=== PATIENT | male | born 2005 | race Two or more races ===

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

== ENCOUNTER 2024-05-05 10:15 | Emergency (ER) | payer OTHER, SELFPAY ==
[2024-05-05 10:20] VITALS: BP 126/64; PULSE 67; TEMP 36.3; O2SAT 100; BMI 22.0
--- OUTSIDE RECORDS SUMMARY | 2024-05-05 10:22 | XMS_ITS | CCD ---
Author Organization [facility] Care Team Providers Care Surgical Forceps Fabricator Name Role Phone Timi KOENIG Primary Care Physician [phone] FLORAEK, DR TIMI Mukherjee Primary Care Unavailable SALIMA, SREE Admitting Unavailable SALIMA, SREE Attending Unavailable SREE BORREGO Consulting Unavailable FLORAEK, DR TIMI Mukherjee Admitting Unavailable WNEK, DR TIMI Mukherjee Attending Unavailable WNEK, DR TIMI Mukherjee Primary Care Unavailable FLORAEK, DR TIMI Mukherjee Consulting Unavailable BOSTON, DR DANETTE Moffett Consulting Unavailable FLORAEK, DR TIMI Mukherjee Primary Care Unavailable ALEX, DR SONAL Mukherjee Admitting Unavailable ALEX, DR SONAL Mukherjee Attending Unavailable ALEX, DR SONAL Mukherjee Consulting Unavailable ANNALISA ASHTON Consulting Unavailable [facility], [place] Unavailable [phone] WNEK, Timi Mukherjee Attending Unavailable WNEK, Timi Mukherjee Attending Unavailable WNEK, Timi Mukherjee Attending Unavailable WNEK, Timi Mukherjee Attending Unavailable WNEK, Timi Mukherjee Attending Unavailable WNEK, Timi Mukherjee Attending Unavailable WNEK, Timi Mukherjee Attending Unavailable WNEK, Timi Mukherjee Attending Unavailable WNEK, Timi Mukherjee Attending Unavailable Allergies Allergy Classification Reported Allergen(s) Allergy Type Date of Onset Reaction(s) Facility (20 sources) cefTRIAXone; Translations: [ceftriaxone] Drug Allergy Weal (disorder) [facility] [place] (1 source) cefTRIAXone Drug Allergy 5 [facility] Repository Medications Current Medications Medication Drug Class(es) Dates Sig (Normalized) Sig (Original) amoxicillin 875 mg oral tablet (2 sources) Penicillin-class Antibacterial Start: 12-14-2022 End: 12-28-2022 take 1 tablet by mouth twice daily amoxicillin 875 mg Tab 875 mg = 1 tab(s), Oral, BID, X 14 day(s), # 28 tab(s), Refills(s) 0, Pharmacy: [facility]/pharmacy #[id number], 168, cm, 12/14/22 10:01:00 EDT, Height/Length Dosing, 59.4, kg, 12/14/22 10:01:00 EDT, Weight Dosing Start Date: 12/14/22 Stop Date: 12/28/22 Status: Ordered Start: 07-28-2021 End: 08-11-2021 take 1 tablet by mouth twice daily amoxicillin 875 mg Tab 875 mg = 1 tab(s), Oral, BID, X 14 day(s), # 28 tab(s), Refills(s) 0, Pharmacy: [facility] 1155, 168, cm, 07/28/21 13:55:00 EDT, Height/Length Dosing, 60.7, kg, 07/28/21 13:55:00 EDT, Weight Dosing Start Date: 07/28/21 Stop Date: 08/11/21 Status: Ordered amoxicillin 875 mg / clavulanate 125 mg oral tablet (3 sources) Penicillin-class Antibacterial Start: 04-21-2023 End: 05-01-2023 Augmentin 875 mg-125 mg Tab 1 tab(s), Oral, BID for 10 day(s), 20 tab(s), Refill(s) 0, [facility]/pharmacy #[id number], 166, cm, 04/21/23 14:23:00 EST, Height/Length Dosing, 59.6, kg, 04/21/23 14:23:00 EST, Weight Dosing Start Date: 04/21/23 Stop Date: 05/01/23 Status: Ordered Start: 02-08-2023 End: 02-18-2023 take 1 tablet by mouth every twelve hours Augmentin 875 mg oral tablet = 1 tab(s), Oral, q12hr, X 10 day(s), # 20 tab(s), Refills(s) 0, Pharmacy: [facility]/pharmacy #[id number], 169, cm, 02/08/23 10:29:00 EDT, Height/Length [...] for 30 day(s), 30 cap(s), Refill(s) 0, [facility]/pharmacy #[id number], 169.5, cm, 08/10/21 8:45:00 EDT, Height/Length [...] (20 sources) Central Nervous System Stimulant Start: 05-01-2024 End: 05-31-2024 take 1 capsule by mouth once daily in the morning amphetamine-dextroamphetamine 30 mg ER Cap 30 mg = 1 cap(s), Oral, qAM, X 30 day(s), # 30 cap(s), Refills(s) 0, Pharmacy: [facility]/pharmacy #[id number], 169, cm, 05/01/24 14:06:00 EST, Height/Length Dosing, 63, kg, 05/01/24 14:06:00 EST, Weight Dosing Start Date: 05/01/24 Stop Date: 05/31/24 Status: Ordered Start: 01-17-2024 End: 02-16-2024 take 1 capsule by mouth once daily in the morning amphetamine-dextroamphetamine 30 mg ER C ap 30 mg = 1 cap(s), Oral, qAM, X 30 day(s), # 30 cap(s), Refills(s) 0, Pharmacy: [facility]/pharmacy #[id number], 169, cm, 01/17/24 15:32:00 EDT, Height/Length Dosing, 62.7, kg, 01/17/24 15:32:00 EDT, Weight Dosing Start Date: 01/17/24 Stop Date: 02/16/24 Status: Ordered Start: 09-13-2023 take 1 capsule by mo [facility] once daily in the morning amphetamine-dextroamphetamine 30 mg ER C ap 30 mg = 1 cap(s), Oral, qAM, # 30 cap(s), Refills(s) 0, Pharmacy: [facility]/pharmacy #[id number], 169, cm, 09/13/23 16:08:00 EDT, Height/Length Dosing, 59.2, kg, 09/13/23 16:08:00 EDT, Weight Dosing Start Date: 09/13/23 Status: Ordered Start: 05-31-2023 End: 06-30-2023 take 1 capsule by mouth once daily in the morning amphetamine-dextroamphetamine 30 mg ER C ap 30 mg = 1 cap(s), Oral, qAM, X 30 day(s), # 30 cap(s), Refills(s) 0, Pharmacy: [facility]/pharmacy #[id number], 166, cm, 05/31/23 9:38:00 EST, Height/Length Dosing, 61.2, kg, 05/31/23 9:38:00 EST, Weight Dosing Start Date: 05/31/23 Stop Date: 06/30/23 Status: Ordered Start: 04-04-2023 End: 05-04-2023 take 1 capsule by mouth once daily in the morning amphetamine-dextroamphetamine 30 mg ER C ap 30 mg = 1 cap(s), Oral, qAM, X 30 day(s), # 30 cap(s), Refills(s) 0, Pharmacy: [facility]/pharmacy #[id number], 169, cm, 03/22/23 8:58:00 EST, Height/Length Dosing, 62.4, kg, 03/22/23 8:58:00 EST, Weight Dosing Start Date: 04/04/23 Stop Date: 05/04/23 Status: Ordered Start: 03-01-2023 take 1 capsule by mo ut once daily in the morning amphetamine-dextroamphetamine 30 mg ER C ap 30 mg = 1 cap(s), Oral, qAM, # 30 cap(s), Refills(s) 0, Pharmacy: [facility]/pharmacy #[id number], 169, cm, 03/01/23 14:02:00 EST, Height/Length Dosing, 61, kg, 03/01/23 14:02:00 EST, Weight Dosing Start Date: 03/01/23 Status: Ordered Start: 02-01-2023 take 1 capsule by [facility] once daily in the morning amphetamine-dextroamphetamine 30 mg ER C ap 30 mg = 1 cap(s), Oral, qAM, # 30 cap(s), Refills(s) 0, Pharmacy: [facility]/pharmacy #[id number], 168, cm, 02/01/23 10:47:00 EDT, Height/Length Dosing, 59.4, kg, 02/01/23 10:47:00 EDT, Weight Dosing Start Date: 02/01/23 Status: Ordered Start: 01-07-2023 take 1 capsule by [facility] once daily in the morning amphetamine-dextroamphetamine 30 mg ER C ap 30 mg = 1 cap(s), Oral, qAM, # 30 cap(s), Refills(s) 0, Pharmacy: [facility]/pharmacy #[id number], 169.8, cm, 01/04/23 10:08:00 EDT, Height/Length Dosing, 59.9, kg, 01/04/23 10:08:00 EDT, Weight Dosing Start Date: 01/07/23 Status: Ordered Start: 11-29-2022 take 1 capsule by [facility] once daily in the morning amphetamine-dextroamphetamine 30 mg ER C ap 30 mg = 1 cap(s), Oral, qAM, # 30 cap(s), Refills(s) 0, Pharmacy: [facility]/pharmacy #[id number], 167, cm, 11/29/22 13:18:00 EDT, Height/Length Dosing, 57.3, kg, 11/29/22 13:18:00 EDT, Weight Dosing Start Date: 11/29/22 Status: Ordered Start: 09-01-2022 take 1 capsule by [facility] once daily in the morning amphetamine-dextroamphetamine 30 mg ER C ap 30 mg = 1 cap(s), Oral, qAM, # 30 cap(s), Refills(s) 0, Pharmacy: [facility]/pharmacy #[id number], 168.2, cm, 09/01/22 13:17:00 EDT, Height/Length Dosing, 60.6, kg, 09/01/22 13:17:00 EDT, Weight Dosing Start Date: 09/01/22 Status: Ordered Start: 07-27-2022 take 1 capsule by mo alh once daily in the morning amphetamine-dextroamphetamine 30 mg ER C ap 30 mg = 1 cap(s), Oral, qAM, # 30 cap(s), Refills(s) 0, Pharmacy: [facility]/pharmacy #[id number], 166, cm, 07/27/22 13:17:00 EDT, Height/Length Dosing, 60.2, kg, 07/27/22 13:17:00 EDT, Weight Dosing Start Date: 07/27/22 Status: Ordered Start: 06-29-2022 amphetamine-de xtroamphetamine 15 mg oral capsule, extended release 30 mg, 2 cap(s), Oral, qAM, 60 cap(s), Refill(s) 0, [facility]/pharmacy #[id number], 167.5, cm, 06/29/22 10:52:00 EDT, Height/Length Dosing, 61.2, kg, 06/29/22 10:52:00 EDT, Weight Dosing Start Date: 06/29/22 Status: Ordered Start: 06-14-2022 amphetamine-de xtroamphetamine 15 mg oral capsule, extended release 30 mg, 2 cap(s), Oral, qAM, 60 cap(s), Refill(s) 0, [facility] #[id number], 167.8, cm, 05/18/22 13:08:00 EST, Height/Length Dosing, 62.6, kg, 05/18/22 13:08:00 EST, Weight Dosing Start Date: 06/14/22 Status: Ordered Start: 05-02-2022 End: 06-30-2022 take 1 capsule by mouth once daily in the morning amphetamine-dextroamphetamine 30 mg ER C ap 30 mg = 1 cap(s), Oral, qAM, X 30 day(s), # 30 cap(s), Refills(s) 0, Pharmacy: [facility]/pharmacy #[id number], 167.8, cm, 05/18/22 13:08:00 EST, Height/Length Dosing, 62.6, kg, 05/18/22 13:08:00 EST, Weight Dosing Start Date: 05/31/22 Stop Date: 06/30/22 Status: Ordered Start: 03-31-2022 End: 04-30-2022 take 1 capsule by mouth once daily in the morning amphetamine-dextroamphetamine 30 mg ER C ap 30 mg = 1 cap(s), Oral, qAM, X 30 day(s), # 30 cap(s), Refills(s) 0, Pharmacy: [facility]/pharmacy #[id number], 165.5, cm, 03/23/22 9:07:00 EST, Height/Length Dosing, 62.9, kg, 03/23/22 9:06:00 EST, Weight Dosing Start Date: 03/31/22 Stop Date: 04/30/22 Status: Ordered Start: 01-04-2022 End: 03-02-2022 take 1 capsule by mouth once daily in the morning amphetamine-dextroamphetamine 30 mg oral capsule, extended release 30 mg, 1 cap(s), Oral, qAM for 30 day(s), 30 cap(s), Refill(s) 0, [facility]/pharmacy #[id number], 169, cm, 01/19/22 13:16:00 EDT, Height/Length Dosing, 62.5, kg, 01/19/22 13:16:00 EDT, Weight Dosing Start Date: 01/31/22 Stop Date: 03/02/22 Status: Ordered Start: 10-11-2021 End: 11-10-2021 take 1 capsule by mouth once daily in the morning amphetamine-dextroamphetamine 30 mg oral capsule, extended release 30 mg, 1 cap(s), Oral, qAM for 30 day(s), 30 cap(s), Refill(s) 0, [facility]/pharmacy #[id number], 165, cm, 09/01/21 14:22:00 EDT, Height/Length Dosing, 61.7, kg, 09/01/21 14:22:00 EDT, Weight Dosing Start Date: 10/11/21 Stop Date: 11/10/21 Status: Ordered azithromycin 250 mg oral tablet (2 sources) Macrolide Antimicrobial Start: 02-01-2023 End: 02-06-2023 azithromycin 250 mg Tab = 1 packet(s), Oral, As Directed, as directed on package labeling, X 5 day(s), # 6 tab(s), Refills(s) 0, Pharmacy: [facility] #[id number], 168, cm, 02/01/23 10:47:00 EDT, Height/Length Dosing, 59.4, kg, 02/01/23 10:47:00 EDT, Weight Dosing Start Date: 02/01/23 Stop Date: 02/06/23 Status: Ordered Start: 12-21-2022 End: 12-26-2022 azithromycin 250 mg Tab = 1 packet(s), Oral, As Directed, as directed on package labeling, X 5 day(s), # 6 tab(s), Refills(s) 0, Pharmacy: [facility] #[id number], 170, cm, 12/21/22 15:13:00 EDT, Height/Length Dosing, 58, kg, 12/21/22 15:13:00 EDT, Weight Dosing Start Date: 12/21/22 Stop Date: 12/26/22 Status: Ordered cetirizine hydrochloride 10 mg oral tablet (20 sources) Histamine-1 Receptor Antagonist Start: 08-01-2023 take 1 tablet by mouth once daily cetirizine 10 mg Tab 10 mg = 1 tab(s), Oral, Daily, # 30 tab(s), Refills(s) 2, Pharmacy: [facility] #[id number], 166, cm, 05/31/23 9:38:00 EST, Height/Length Dosing, 61.2, kg, 05/31/23 9:38:00 EST, Weight Dosing Start Date: 08/01/23 Status: Ordered Start: 02-12-2020 Zyrtec Oral, D SWETHA [email or web address] Allergy symptoms, Refills(s) 0 Start Date: 02/12/20 Status: Ordered Start: 02-12-2020 Zyrtec Daily, Refills(s) 0 Start Date: 02/12/20 Status: Ordered ciprofloxacin 500 mg oral tablet (2 sources) Quinolone Antimicrobial Start: 06-22-2022 End: 07-02-2022 take 1 tablet by mouth twice daily Cipro 500 mg Tab 500 mg = 1 tab(s), Oral, BID, X 10 day(s), # 20 tab(s), Refills(s) 0, Pharmacy: [facility]/pharmacy #[id number], 167.5, cm, 06/22/22 10:49:00 EST, Height/Length Dosing, 60.1, kg, 06/22/22 10:49:00 EST, Weight Dosing Start Date: 06/22/22 Stop Date: 07/02/22 Status: Ordered dicyclomine hydrochloride 10 mg oral capsule (18 sources) Anticholinergic Start: 03-01-2023 take 1 capsule by mouth four times daily dicyclomine 10 mg Cap 10 mg = 1 cap(s), Oral, QID, # 60 cap(s), Refills(s) 1, Pharmacy: [facility]/pharmacy #[id number], 169, cm, 03/01/23 14:02:00 EST, Height/Length Dosing, 61, kg, 03/01/23 14:02:00 EST, Weight Dosing Start Date: 03/01/23 Status: Ordered Start: 11-29-2022 take 1 capsule by mo [facility] four times daily dicyclomine 10 mg Cap 10 mg = 1 cap(s), Oral, QID, # 60 cap(s), Refills(s) 1, Pharmacy: [facility]/pharmacy #[id number], 167, cm, 11/29/22 13:18:00 EDT, Height/Length Dosing, 57.3, kg, 11/29/22 13:18:00 EDT, Weight Dosing Start Date: 11/29/22 Status: Ordered Start: 05-18-2022 take 2 capsules by m out four times daily as needed Bentyl 10 mg Cap 20 mg = 2 cap(s), Oral, QID, PRN Dyspepsia, # 60 cap(s), Refills(s) 0, Pharmacy: [facility]/pharmacy #[id number], 167.8, cm, 05/18/22 13:08:00 EST, Height/Length Dosing, 62.6, kg, 05/18/22 13:08:00 EST, Weight Dosing Start Date: 05/18/22 Status: Ordered docusate sodium 100 mg oral capsule (20 sources) Start: 06-15-2022 take 1 capsule by mouth twice daily as needed for constipation Colace 100 mg Cap 100 mg = 1 cap(s), Oral, BID, PRN for constipation, # 20 cap(s), Refills(s) 0, Pharmacy: [facility]/pharmacy #[id number], 167.5, cm, 06/15/22 13:04:00 EST, Height/Length Dosing, 61.4, kg, 06/15/22 13:04:00 EST, Weight Dosing Start Date: 06/15/22 Status: Ordered fluticasone propionate 0.05 mg/actuat metered dose nasal spray (20 sources) Corticosteroid Start: 02-06-2023 fluticasone Nasal 0.05 mg/inh [place] 2 spray(s), Nasal, Daily, 16 gram, Refill(s) 2, each nostril, [facility]/pharmacy #[id number], 168, cm, 02/01/23 10:47:00 EDT, Height/Length Dosing, 59.4, kg, 02/01/23 10:47:00 EDT, Weight Dosing Start Date: 02/06/23 Status: Ordered Start: 11-09-2022 fluticasone Na miguelina 0.05 mg/inh [place] 2 spray(s), Nasal, Daily, 16 gram, Refill(s) 2, each nostril, [facility]/pharmacy #[id number], 168.2, cm, 09/01/22 13:17:00 EDT, Height/Length Dosing, 60.6, kg, 09/01/22 13:17:00 EDT, Weight Dosing Start Date: 11/09/22 Status: Ordered Start: 07-27-2022 fluticasone Na miguelina 0.05 mg/inh [place] 2 spray(s), Nasal, Daily, 16 gram, Refill(s) 0, each nostril, [facility]/pharmacy #[id number], 166, cm, 07/27/22 13:17:00 EDT, Height/Length Dosing, 60.2, kg, 07/27/22 13:17:00 EDT, Weight Dosing Start Date: 07/27/22 Status: Ordered Start: 06-29-2022 fluticasone Na miguelina 0.05 mg/inh [place] 2 spray(s), Nasal, Daily, 16 gram, Refill(s) 0, each nostril, [facility]/pharmacy #[id number], 167.5, cm, 06/29/22 10:52:00 EDT, Height/Length Dosing, 61.2, kg, 06/29/22 10:52:00 EDT, Weight Dosing Start Date: 06/29/22 Status: Ordered Start: 01-19-2022 fluticasone To p 0.05% Crm 15 gram 1 eleuterio, Topical, BID, 15 gram, Refill(s) 0, [facility]/pharmacy #[id number], 169, cm, 01/19/22 13:16:00 EDT, Height/Length Dosing, 62.5, kg, 01/19/22 13:16:00 EDT, Weight Dosing Start Date: 01/19/22 Status: Ordered Inulin / Lactobacillus rhamn osus GG (6 sources) Start: 07-05-2022 End: 08-04-2022 Gene SolutionsBancha oral capsule 1 cap(s), Oral, Daily for 30 day(s), 30 cap(s), Refill(s) 0, [facility]/pharmacy #[id number], 167.5, cm, 06/29/22 10:52:00 EDT, Height/Length Dosing, 61.2, kg, 06/29/22 10:52:00 EDT, Weight Dosing Start Date: 07/05/22 Stop Date: 08/04/22 Status: Ordered Start: 04-20-2022 End: 05-20-2022 [employer]ancha oral capsule 1 cap(s), Oral, Daily for 30 day(s), 30 cap(s), Refill(s) 0, [facility]/pharmacy #[id number], 17.1, cm, 04/20/22 9:29:00 EST, Height/Length Dosing, 63, kg, 04/20/22 9:29:00 EST, Weight Dosing Start Date: 04/20/22 Stop Date: 05/20/22 Status: Ordered methocarbamol 750 mg oral tablet (3 sources) Muscle Relaxant Start: 09-13-2023 methocarbamol 750 mg Tab Refills(s) 0 Start Date: 09/13/23 Status: Ordered methylPREDNISolone 4 mg tab dosepak (1 source) Start: 09-13-2023 take 1 tablet by mouth once methylPREDNISolone 4 mg tab dosepak = 1 packet(s), Oral, Once, as directed on package labeling, X 6 day(s), # 21 tab(s), Refills(s) 0 Start Date: 09/13/23 Status: Ordered MiraLax 3350 Oral Pwdr for Recon 249 gram (20 sources) Start: 08-10-2021 take 17 g by mouth once daily MiraLax 3350 Oral Pwdr for Recon 249 gram 17 gm, Oral, Daily, # 527 gm, Refills(s) 0, Pharmacy: [facility]/pharmacy #[id number], 169.5, cm, 08/10/21 8:45:00 EDT, Height/Length Dosing, 61.9, kg, 08/10/21 8:45:00 EDT, Weight Dosing Start Date: 08/10/21 Status: Ordered naproxen sodium 550 mg oral tablet (15 sources) Nonsteroidal Anti-inflammator y Drug Start: 09-13-2023 naproxen sodium 550 mg Tab Refills(s) 0 Start Date: 09/13/23 Status: Ordered Start: 02-07-2022 take 1 tablet by gilmer th twice daily as needed for pain naproxen 250 mg oral tablet 250 mg = 1 tab(s), Oral, BID, PRN as needed for pain, # 60 tab(s), Refills(s) 0, Pharmacy: [facility]/pharmacy #[id number], 165.5, cm, 02/02/22 14:50:00 EDT, Height/Length Dosing, 61.8, kg, 02/02/22 14:50:00 EDT, Weight Dosing Start Date: 02/07/22 Status: Ordered Start: 01-05-2022 take 1 tablet by gilmer th twice daily as needed for pain naproxen 250 mg oral tablet 250 mg = 1 tab(s), Oral, BID, PRN as needed for pain, # 60 tab(s), Refills(s) 0, Pharmacy: [facility]/pharmacy #[id number], 166, cm, 01/05/22 11:41:00 EDT, Height/Length Dosing, 61.4, kg, 01/05/22 11:41:00 EDT, Weight Dosing Start Date: 01/05/22 Status: Ordered omeprazole 20 mg Cap-DR (8 sources) Start: 02-10-2021 take 1 capsule by mouth once daily omeprazole 20 mg Cap-DR 20 mg = 1 cap(s), Oral, Daily, # 30 cap(s), Refills(s) 0, Pharmacy: [facility] 1155, 167.3, cm, 02/10/21 8:54:00 EDT, Height/Length Dosing, 56.7, kg, 02/10/21 8:54:00 EDT, Weight Dosing Start Date: 02/10/21 Status: Ordered ondansetron 4 mg disintegrating oral tablet (20 sources) Serotonin-3 Receptor Antagonist Start: 11-29-2022 take 1 tablet by mouth every eight hours ondansetron 4 mg Dis Tab 4 mg = 1 tab(s), Oral, q8hr, # 16 tab(s), Refills(s) 0, Pharmacy: [facility]/pharmacy #[id number], 167, cm, 11/29/22 13:18:00 EDT, Height/Length Dosing, 57.3, kg, 11/29/22 13:18:00 EDT, Weight Dosing Start Date: 11/29/22 Status: Ordered Start: 04-20-2022 take 1 tablet by gilmer th every eight hours ondansetron 4 mg Dis Tab 4 mg = 1 tab(s), Oral, q8hr, # 16 tab(s), Refills(s) 0, Pharmacy: [facility]/pharmacy #[id number], 17.1, cm, 04/20/22 9:29:00 EST, Height/Length Dosing, 63, kg, 04/20/22 9:29:00 EST, Weight Dosing Start Date: 04/20/22 Status: Ordered Start: 02-18-2022 End: 02-23-2022 take 1 tablet by mouth every eight hours ondansetron 4 mg Dis Tab 4 mg = 1 tab(s), Oral, q8hr, X 5 day(s), # 15 tab(s), Refills(s) 0, Pharmacy: [facility]/pharmacy #[id number], 167, cm, 02/18/22 13:05:00 EDT, Height/Length Dosing, 62.3, kg, 02/18/22 13:05:00 EDT, Weight Dosing Start Date: 02/18/22 Stop Date: 02/23/22 Status: Ordered Start: 01-05-2022 End: 02-04-2022 take 1 tablet by mouth every eight hours as needed for nausea ondansetron 4 mg Tab 4 mg = 1 tab(s), Oral, q8hr, PRN Nausea/Vomiting, X 30 day(s), # 10 tab(s), Refills(s) 0, Pharmacy: [facility]/pharmacy #[id number], 166, cm, 01/05/22 11:41:00 EDT, Height/Length Dosing, 61.4, kg, 01/05/22 11:41:00 EDT, Weight Dosing Start Date: 01/05/22 Stop Date: 02/04/22 Status: Ordered Start: 06-02-2021 take 1 tablet by gilmer th every eight hours ondansetron 4 mg Dis Tab 4 mg = 1 tab(s), Oral, q8hr, # 6 tab(s), Refills(s) 0, Pharmacy: [facility] 1155, 167, cm, 06/02/21 10:13:00 EST, Height/Length Dosing, 60.7, kg, 06/02/21 10:13:00 EST, Weight Dosing Start Date: 06/02/21 Status: Ordered polyethylene glycol 3350 14319 mg powder for oral solution (5 sources) Osmotic Laxative Start: 08-10-2021 take 17 g by mouth once daily MiraLax 3350 Oral Pwdr for Recon 249 gram 17 gm, Oral, Daily, # 527 gm, Refills(s) 0, Pharmacy: [facility]/pharmacy #[id number], 169.5, cm, 08/10/21 8:45:00 EDT, Height/Length Dosing, 61.9, kg, 08/10/21 8:45:00 EDT, Weight Dosing Start Date: 08/10/21 Status: Ordered polyethylene glycol 3350 051400 mg / potassium chloride 1480 mg / sodium bicarbonate 5720 mg / sodium chloride 97903 mg powder for oral solution (2 sources) Osmotic Laxative Start: 06-22-2022 NuLYTELY Romano oral powder for reconstitution See Instructions, 1 EA, Refill(s) 0, See physician instructions prior to procedure., [facility]/pharmacy #[id number], 167.5, cm, 06/22/22 10:49:00 EST, Height/Length Dosing, 60.1, kg, 06/22/22 10:49:00 EST, Weight Dosing Start Date: 06/22/22 Status: Ordered predniSONE 50 mg oral tablet (1 source) Start: 04-21-2023 End: 04-26-2023 take 1 tablet by mouth once daily predniSONE 50 mg Tab 50 mg = 1 tab(s), Oral, Daily, X 5 day(s), # 5 tab(s), Refills(s) 0, Pharmacy: [facility]/pharmacy #[id number], 166, cm, 04/21/23 14:23:00 EST, Height/Length Dosing, 59.6, kg, 04/21/23 14:23:00 EST, Weight Dosing Start Date: 04/21/23 Stop Date: 04/26/23 Status: Ordered promethazine hydrochloride 12.5 mg oral tablet (20 sources) Phenothiazine Start: 09-01-2021 take 1 tablet by mouth every six hours promethazine 12.5 mg oral tablet 12.5 mg = 1 tab(s), Oral, q6hr, # 16 tab(s), Refills(s) 1, [id number], 165, cm, 09/01/21 14:22:00 EDT, Height/Length Dosing, 61.7, kg, 09/01/21 14:22:00 EDT, Weight Dosing Start Date: 09/01/21 Status: Ordered Start: 08-18-2021 take 1 tablet by gilmer th every six hours promethazine 12.5 mg oral tablet 12.5 mg = 1 tab(s), Oral, q6hr, # 16 tab(s), Refills(s) 0, [id number], 167.5, cm, 08/18/21 15:28:00 EDT, Height/Length [...] bedtime), # 30 tab(s), Refills(s) 0, Pharmacy: [id number], 165, cm, 02/17/21 15:59:00 EDT, Height/Length [...] Refills(s) 0 Start Date: 01/05/22 Status: Ordered omeprazole 20 mg delayed release oral capsule (20 sources) Proton Pump Inhibitor Start: 07-27-2022 take 1 capsule by mouth once daily omeprazole 20 mg Cap-DR 30 EA, TAKE 1 CAPSULE BY MOUTH EVERY DAY, Refills(s) 0 Start Date: 07/27/22 Status: Ordered Start: 04-20-2022 take 1 capsule by [facility] once daily omeprazole 20 mg Cap-DR 20 mg = 1 cap(s), Oral, Daily, # 30 cap(s), Refills(s) 0, Pharmacy: [facility]/pharmacy #[id number], 17.1, cm, 04/20/22 9:29:00 EST, Height/Length Dosing, 63, kg, 04/20/22 9:29:00 EST, Weight Dosing Start Date: 04/20/22 Status: Ordered Start: 02-10-2021 take 1 capsule by [facility] once daily omeprazole 20 mg Cap-DR 20 mg = 1 cap(s), Oral, Daily, # 30 cap(s), Refills(s) 0, Pharmacy: [place] [id number], 167.3, cm, 02/10/21 8:54:00 EDT, Height/Length Dosing, 56.7, kg, 02/10/21 8:54:00 EDT, Weight Dosing Start Date: 02/10/21 Status: Ordered pantoprazole (6 sources) Proton Pump Inhibitor Start: 11-21-2022 Problems [...] and depressed mood] 12-30-2020 Chronic Administrative/social admission (6 sources) Counseling procedure with explicit context; Translations: [...] elsewhere] Onset: 2 Episodic Digestive congenital anomalies (20 sources) 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] unspecified] Onset: 2 05-07-2020 Episodic Noninfectious gastroenteritis (15 sources) Noninfectious enteritis; Translations: [Noninfective gastroenteritis and colitis, unspecified] Onset: 2 Episodic Nonspecific chest pain (17 sources) Chest pain; Translations: [Chest pain, unspecified] [...] injuries and conditions due to external causes (16 sources) Injury of hand 08-29-2022 Episodic Other lower respiratory disease (12 sources) Hemoptysis; Translations: [Hemoptysis] Onset: 3 Episodic Other nervous system disorders (1 source) Chronic pain; Translations: [Other chronic pain] Onset: 3 Chronic Otitis media and related conditions (7 sources) Purulent otitis media; Translations: [Suppurative otitis media, unspecified, left ear] Onset: 4 Episodic Residual codes; unclassified (6 sources) Difficulty sleeping 05-07-2020 Episodic Residual codes; unclassified (20 sources) Insomnia 12-30-2020 Episodic Residual codes; unclassified (2 sources) Child weight centiles - finding; Translations: [Body mass index (BMI) pediatric, 5th percentile to less than 85th percentile for age] Onset: 3 Episodic Residual codes; unclassified (1 source) Body mass index 20-24 - normal; Translations: [Body mass index (BMI) 21.0-21.9, adult] Onset: 5 Episodic Syncope (20 sources) Syncope 01-20-2021 Episodic Unclassified (14 sources) Patient encounter status 11-29-2022 Unclassified (1 source) Body mass index 20-24 - normal 04-30-2024 Viral infection (20 sources) Infectious mononucleosis; Translations: [...] pharyngitis; Translations: [Acute pharyngitis] Onset: 07-28-2021 Unclassified (19 sources) Finding of sensation of abdomen 07-27-2022 Results Test Name Value Interpretation Reference Range Facility Pediatrics Office/Clinic Not homa 01-20-2024 Pediatrics Office/Clinic Note Pediatrics Office/Clinic Note Chief Complaint Patient in office for ADHD med recheck. Per patient he is doing well on meds needs refill. History of Present Illness Pieter Brennan is a 18-year-old male who presents for follow-up of ADHD. He reports feeling well and adhering to his medication regimen. This medication has effectively improved his focus and attention. He is currently working and plans to attend college next semester. He graduated. He denies experiencing headaches, abdominal pain, excessive fatigue, drowsiness, appetite suppression, or trouble falling asleep while on the medication. His height is unchanged since the last visit. He needs medication refill. He reports that during his last medication refill, [facility] did not have a the medication for a 1 week, so he obtain medication injection. He is on Adderall, XR 30 mg. He has 1 or 2 pills remaining.The patient prefers to fill the prescription at [facility], he will talk with them before making any changes. Review of Systems PHQ Score Initial Depression Screen Score: 0 SCORE CONSTITUTIONAL: Negative for growth problems, fatigue, unexplained fevers, and weight loss. NEUROLOGICAL: Negative for abnormal tone, developmental delays, syncope, headaches, and seizures. Physical Exam Vitals & Measurements T: 37.0 ?C(Temporal Artery) HR: 78(Peripheral) RR: 14 BP: 110/82 HT: 67 in HT: 169 cm WT: 62.7 kg WT: 137.94 lb BMI: 21.95 GENERAL: The patient is well developed, well nourished, in no apparent distress. NEUROLOGIC:Normalfor age; Cranial nerves:II through XII grossly intact; PSYCHIATRIC: Normal mood and behavior. Vital Signs Height is 5 feet 7 inches. Weight is 138 pounds and 4 ounces, 25th percentile. BMI is 41st percentile. Assessment/Plan 1. ADHD (attention deficit hyperactivity disorder) (F90.2: Attention-deficit hyperactivity disorder, combined type) Refilled Adderall XR 30 mg, to be taken once daily in the morning, was provided. Informed to contact the office if there are any issues with medication availability. Advised to notify 1 week before running low on medication to ensure availability. 2. Dietary counseling (Z71.3: Dietary counseling and surveillance) 3. Exercise counseling (Z71.82: Exercise counseling) 4. BMI (body mass index), pediatric, 5% to less than 85% for age (Z68.52: Body mass index [BMI] pediatric, 5th percentile to less than 85th percentile for age) Follow-up in 3 months. Portions of this record may have been created with voice recognition artificial intelligence software, specifically [employer], [employer] and or [employer]. Substitutions may have occurred due to the inherent limitations of voice recognition and artificial intelligence software. ATTESTATION: Documentation services were performed after patient or guardian consented to allow [employer] to record this visit. MAEGAN environmental protection specialist and provider reviewed before signing. MAEGAN: Otis Sayed. Total time spent preparing the chart, conducting of the encounter with the patient and family and time spent documenting, reviewing and ordering tests was 15 minutes Follow-up With When Contact Information LIBERTY SMITH, Timi Mukherjee, PED In 1 month [address] [facility] [place] [address]- Additional Instructions: recheck ADHD Problem List/Past Medical History Ongoing Acute adjustment disorder with anxiety Acute adjustment disorder with mixed anxiety and depressed mood ADHD (attention deficit hyperactivity disorder) Bipolar disorder, current episode mixed, moderate Chest pain Chronic abdominal pain Dietary counseling Dysuria Exercise counseling GERD (gastroesophageal reflux disease) Insomnia Intrinsic asthma [...] - Esophagogastroduodenoscopy (07/13/2022), Circumcision (2004), Myringotomy. Medications amphetamine-dextroamphetamin e 30 mg ER Cap, 30 mg= 1 cap(s), Oral, qAM cetirizine 10 mg Tab, 10 mg= 1 tab(s), Oral, Daily, 2 refills Colace 100 mg Cap, 100 mg= 1 cap(s), Oral, BID, PRN dicyclomine 10 mg Cap, 10 mg= 1 cap(s), Oral, QID, 1 refills fluticasone Nasal 0.05 mg/inh [place], 2 spray(s), Nasal, Daily, 2 refills methocarbamol 750 mg Tab MiraLax 3350 Oral Pwdr for Recon 249 gram, 17 gm, Oral, Daily naproxen sodium 550 mg Tab omeprazole 20 mg Cap-DR ondansetron 4 mg Dis Tab, 4 (more content not included)... Normal [facility] Ambulatory Visit Summaryon 1 Ambulatory Visit Summary Ambulatory Visit Summary PIETER BRENNAN :2005 Visit Date:01/17/2024 Ambulatory Visit Instructions Your Diagnosis ADHD (attention deficit hyperactivity disorder) Dietary counseling Exercise counseling BMI (body mass index), pediatric, 5% to less than 85% for age Your Care Team Attending Physician - Timi KOENIG MD Primary Care Physician - Timi KOENIG MD This Is Your Medications List amphetamine-dextroamphetamin e (amphetamine-dextroamphetami ne 30 mg ER Cap) Contact prescribing physician if questions or concerns cetirizine (Zyrtec) cetirizine (cetirizine 10 mg Tab) dicyclomine (dicyclomine 10 mg Cap) docusate (Colace 100 mg Cap) fluticasone nasal (fluticasone Nasal 0.05 mg/inh [place]) methocarbamol (methocarbamol 750 mg Tab) naproxen (naproxen sodium 550 mg Tab) omeprazole (omeprazole 20 mg Cap-DR) ondansetron (ondansetron 4 mg Dis Tab) pantoprazole polyethylene glycol 3350 (MiraLax 3350 Oral Pwdr for Recon 249 gram) promethazine (promethazine 12.5 mg oral tablet) Procedures Performed Colonoscopy (07/13/2022), EGD - Esophagogastroduodenoscopy (07/13/2022), Circumcision (2004), Myringotomy. Discharge Vitals Temperature (Temporal Artery) 37.0 ?C Heart Rate (Peripheral) 78 Respiratory Rate 14 Blood Pressure 110/82 Height 169 cm Height 67 in Weight 62.7 kg Weight 137.94 lb BMI 21.95 What to do next Scheduled Follow-Up Appointments Monday 4:20 PM EST With: Timi KOENIG MD Where: [facility] [place] [address] [place] [address]- You Need to Schedule the Following Appointments Follow Up with LIBERTY SMITH, Timi Mukherjee, PED When: In 1 month Comments: recheck ADHD Where: [address] [place] [address] [place] [address]- Medications What How Much When Why Instructions Unchanged amphetamine-dextroamphetamin e (amphetamine-dextroamphetami ne 30 mg ER Cap) 1 Capsules By Mouth Once a day (in the morning) Duration: 30 Days Pickup at [facility]/pharmacy #[id number] Unchanged cetirizine (cetirizine 10 mg Tab) 1 Tablets By Mouth Every day Contact prescribing physician if questions or concerns Unchanged cetirizine (Zyrtec) By Mouth Every day as needed for Allergy symptoms Contact prescribing physician if questions or concerns Unchanged dicyclomine (dicyclomine 10 mg Cap) 1 Capsules By Mouth 4 times a day Contact prescribing physician if questions or concerns Unchanged docusate (Colace 100 mg Cap) 1 Capsules By Mouth 2 times a day as needed for for constipation Abdominal pain Constipation Contact prescribing physician if questions or concerns Unchanged fluticasone nasal (fluticasone Nasal 0.05 mg/ inh [place]) 2 Sprays Nasal Inhalation Every day each nostril Contact prescribing physician if questions or concerns Unchanged methocarbamol (methocarbamol 750 mg Tab) Contact prescribing physician if questions or concerns Unchanged naproxen (naproxen sodium 550 mg Tab) Contact prescribing physician if questions or concerns Unchanged omeprazole (omeprazole 20 mg Cap-DR) 30 EA, TAKE 1 CAPSULE BY MOUTH EVERY DAY Contact prescribing physician if questions or concerns Unchanged ondansetron (ondansetron 4 mg Dis Tab) 1 Tablets By Mouth Every 8 hours Contact prescribing physician if questions or concerns Unchanged pantoprazole 40 Unknown, Oral, 0 Refill(s) Contact prescribing physician if questions or concerns Unchanged polyethylene glycol 3350 (MiraLax 3350 Oral Pwdr for Recon 249 gram) 17 Gram By Mouth Every day Slow transit constipation Contact prescribing physician if questions or concerns Unchanged promethazine (promethazine 12.5 mg oral tablet) 1 Tablets By Mouth Every 6 hours Vomiting Abdominal pain Contact prescribing physician if questions or concerns Pharmacy Information [facility]/pharmacy #[id number]: [address] [place], [place] [phone] Allergies Rocephin (Hives) Problems Ongoing - Any problem that you are currently receiving treatment for. Acute adjustment disorder with anxiety Acute adjustment disorder with mixed anxiety and depressed mood ADHD (attention deficit hyperactivity disorder) Bipolar disorder, current episode mixed, moderate Chest pain Chronic abdominal pain Dietary counseling Dysuria Exercise counseling GERD (gastroesophageal reflux disease) Insomnia Intrinsic asthma Migraines 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 Slow transit constipation Small intestinal bacterial overgrowth (SIBO) Suppurative otitis media of left ear without rupture of ear drum Syncope Viral illness Historical - Any problem that you are no longer receiving treatment for. Abdominal cramping Abdominal pain Abdominal pain, lower Acute costochondritis Acute gastroenteritis Costochondritis Hemoptysis Infectious mononucleosis Infectious mononucleosis Injury of hand including fingers Insect bites Nausea & vomiting Nausea an (more content not included)... Normal [facility] Ambulatory Visit Summary Ambulatory Visit Summary PIETER BRENNAN Mohit :2005 Visit Date:01/17/2024 Ambulatory Visit Instructions Your Diagnosis ADHD (attention deficit hyperactivity disorder) Dietary counseling Exercise counseling BMI (body mass index), pediatric, 5% to less than 85% for age Your Care Team Attending Physician - Timi KOENIG MD Primary Care Physician - Timi KOENIG MD This Is Your Medications List amphetamine-dextroamphetamin e (amphetamine-dextroamphetami ne 30 mg ER Cap) Contact prescribing physician if questions or concerns cetirizine (Zyrtec) cetirizine (cetirizine 10 mg Tab) dicyclomine (dicyclomine 10 mg Cap) docusate (Colace 100 mg Cap) fluticasone nasal (fluticasone Nasal 0.05 mg/inh [place]) methocarbamol (methocarbamol 750 mg Tab) naproxen (naproxen sodium 550 mg Tab) omeprazole (omeprazole 20 mg Cap-DR) ondansetron (ondansetron 4 mg Dis Tab) pantoprazole polyethylene glycol 3350 (MiraLax 3350 Oral Pwdr for Recon 249 gram) promethazine (promethazine 12.5 mg oral tablet) Procedures Performed Colonoscopy (07/13/2022), EGD - Esophagogastroduodenoscopy (07/13/2022), Circumcision (2004), Myringotomy. Discharge Vitals Temperature (Temporal Artery) 37.0 ?C Heart Rate (Peripheral) 78 Respiratory Rate 14 Blood Pressure 110/82 Height 169 cm Height 67 in Weight 62.7 kg Weight 137.94 lb BMI 21.95 What to do next Scheduled Follow-Up Appointments Monday 4:20 PM EST With: Timi KOENIG MD Where: [facility] [place] [address] [place] [address]- You Need to Schedule the Following Appointments Follow Up with Timi KOENIG MD, PED When: In 1 month Comments: recheck ADHD Where: [address] [place] [address] [place] [address]- Medications What How Much When Why Instructions Unchanged amphetamine-dextroamphetamin e (amphetamine-dextroamphetami ne 30 mg ER Cap) 1 Capsules By Mouth Once a day (in the morning) Duration: 30 Days Pickup at [facility]/pharmacy #[id number] Unchanged cetirizine (cetirizine 10 mg Tab) 1 Tablets By Mouth Every day Contact prescribing physician if questions or concerns Unchanged cetirizine (Zyrtec) By Mouth Every day as needed for Allergy symptoms Contact prescribing physician if questions or concerns Unchanged dicyclomine (dicyclomine 10 mg Cap) 1 Capsules By Mouth 4 times a day Contact prescribing physician if questions or concerns Unchanged docusate (Colace 100 mg Cap) 1 Capsules By Mouth 2 times a day as needed for for constipation Abdominal pain Constipation Contact prescribing physician if questions or concerns Unchanged fluticasone nasal (fluticasone Nasal 0.05 mg/ inh [place]) 2 Sprays Nasal Inhalation Every day each nostril Contact prescribing physician if questions or concerns Unchanged methocarbamol (methocarbamol 750 mg Tab) Contact prescribing physician if questions or concerns Unchanged naproxen (naproxen sodium 550 mg Tab) Contact prescribing physician if questions or concerns Unchanged omeprazole (omeprazole 20 mg Cap-DR) 30 EA, TAKE 1 CAPSULE BY MOUTH EVERY DAY Contact prescribing physician if questions or concerns Unchanged ondansetron (ondansetron 4 mg Dis Tab) 1 Tablets By Mouth Every 8 hours Contact prescribing physician if questions or concerns Unchanged pantoprazole 40 Unknown, Oral, 0 Refill(s) Contact prescribing physician if questions or concerns Unchanged polyethylene glycol 3350 (MiraLax 3350 Oral Pwdr for Recon 249 gram) 17 Gram By Mouth Every day Slow transit constipation Contact prescribing physician if questions or concerns Unchanged promethazine (promethazine 12.5 mg oral tablet) 1 Tablets By Mouth Every 6 hours Vomiting Abdominal pain Contact prescribing physician if questions or concerns Pharmacy Information [facility]/pharmacy #[id number]: [address] [place], [place] [phone] Allergies Rocephin (Hives) Problems Ongoing - Any problem that you are currently receiving treatment for. Acute adjustment disorder with anxiety Acute adjustment disorder with mixed anxiety and depressed mood ADHD (attention deficit hyperactivity disorder) Bipolar disorder, current episode mixed, moderate Chest pain Chronic abdominal pain Dietary counseling Dysuria Exercise counseling GERD (gastroesophageal reflux disease) Insomnia Intrinsic asthma Migraines 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 Slow transit constipation Small intestinal bacterial overgrowth (SIBO) Suppurative otitis media of left ear without rupture of ear drum Syncope Viral illness Historical - Any problem that you are no longer receiving treatment for. Abdominal cramping Abdominal pain Abdominal pain, lower Acute costochondritis Acute gastroenteritis Costochondritis Hemoptysis Infectious mononucleosis Infectious mononucleosis Injury of hand including fingers Insect bites Nausea & vomiting Nausea an (more content not included)... Normal [facility] ED Note-Physicianon 09-15-19 ED Note-Physician [id number] [facility] RAD - CT Reporton 09-15-2023 RAD - CT Report [id number] [facility] RAD - CT Report [id number] [facility] RAD - CT Report [id number] [facility] Pediatrics Office/Clinic Not homa 09-14-2023 Pediatrics Office/Clinic Note Chief Complaint Patient in office for adhd med check History of Present Illness Pieter Brennan is an 17-year-old male who presents today for a follow-up on ADHD. The patient's ADHD is well-managed with Adderall, with a satisfactory focus and attention. His academic performance post-graduation was reported to be A's and B's. He denies experiencing headaches, abdominal pain, excessive fatigue, drowsiness, or sleep disturbances. His appetite remains satisfactory. He is currently on a regimen of Adderall 30 mg, taken once daily in the morning, and needs a refill. He sustained a hip dislocation during a basketball game. He was attempting to retrieve a rebound, but threw it behind him, which was a hill. He landed on his front leg, causing it to slide out. The hip was manually reduced in the emergency room at [facility]. He was administered a morphine injection, a steroid immune booster, and a muscle relaxer. Review of Systems PHQ Score Initial Depression Screen Score: 0 SCORE ROS - Provider CONSTITUTIONAL: Negative for growth problems, fatigue, unexplained fevers, and weight loss. NEUROLOGICAL: Negative for abnormal tone, developmental delays, syncope, headaches, and seizures. PSYCHIATRIC: Negative for behavioral or emotional problems. Physical Exam Vitals & Measurements T: 36.5 ?C(Temporal Artery) HR: 68(Peripheral) RR: 24 BP: 128/72 HT: 67 in HT: 169 cm WT: 59.2 kg WT: 130.24 lb BMI: 20.73 GENERAL: The patient is well developed, well nourished, in no apparent distress. NEUROLOGIC:Normalfor age; Cranial nerves:II through XII grossly intact; PSYCHIATRIC: Normal mood and behavior. Assessment/Plan 1. ADHD (attention deficit hyperactivity disorder) (F90.2: Attention-deficit hyperactivity disorder, combined type) The patient is advised to continue with the current regimen of Adderall 30 mg once daily in the morning. A prescription refill for Adderall has been provided. 2. Dietary counseling (Z71.3: Dietary counseling and surveillance) 3. Exercise counseling (Z71.82: Exercise counseling) Hip dislocation. The patient's condition is currently being managed by the emergency room at [facility]. Health maintenance. I advised the patient that typically; after graduating from high school, they will transition to a family doctor. However, we will continue to provide care until he is able to establish with another physician. We recommend that there are [facility] physicians who are currently accepting new patients. The patient will let us know and we will ensure that his medical records are transferred accordingly. Follow-up The patient is scheduled for a follow-up visit in 3 months. ATTESTATION: Portions of this record may have been created with voice recognition artificial intelligence software, specifically [employer], [employer] and or [employer]. Substitutions may have occurred due to the inherent limitations of voice recognition and artificial intelligence software. Documentation services were performed after patient or guardian consented to allow [employer] to record this visit. MAEGAN environmental protection specialist and provider reviewed before signing. MAEGAN: Summer Herrera Total time spent preparing the chart, conducting of the encounter with the patient and family and time spent documenting, reviewing and ordering tests was 15 minutes Follow-up With When Contact Information LIBERTY SMITH, DALIA Phillips In 3 months [address] [facility] [place] [id number]- Additional Instructions: recheck ADHD Problem List/Past Medical History Ongoing Acute adjustment disorder with anxiety Acute adjustment disorder with mixed anxiety and depressed mood ADHD (attention deficit hyperactivity disorder) Bipolar disorder, current episode mixed, moderate Chest pain Chronic abdominal pain Dietary counseling Dysuria Exercise counseling GERD (gastroesophageal reflux disease) Insomnia Intrinsic asthma [...] - Esophagogastroduodenoscopy (07/13/2022), Circumcision (2004), Myringotomy. Medications amphetamine-dextroamphetamin e 30 mg ER Cap, 30 mg= 1 cap(s), Oral, qAM cetirizine 10 mg Tab, 10 mg= 1 tab(s), Oral, Daily, 2 refills Colace 100 mg Cap, 100 mg= 1 cap(s), Oral, BID, PRN dicyclomine 10 mg Cap, 10 mg= 1 cap(s), Oral, QID (more content not included)... Normal [facility] Ambulatory Visit Summaryon 0 09-13-2023 Ambulatory Visit Summary PIETER BRENNAN :2005 Visit Date:09/13/2023 Ambulatory Visit Instructions Your Diagnosis ADHD (attention deficit hyperactivity disorder) Dietary counseling Exercise counseling Your Care Team Attending Physician - Timi KOENIG MD Primary Care Physician - Timi KOENIG MD This Is Your Medications List amphetamine-dextroamphetamin e (amphetamine-dextroamphetami ne 30 mg ER Cap) Contact prescribing physician if questions or concerns cetirizine (Zyrtec) cetirizine (cetirizine 10 mg Tab) dicyclomine (dicyclomine 10 mg Cap) docusate (Colace 100 mg Cap) docusate (docusate sodium 100 mg Cap) fluticasone nasal (fluticasone Nasal 0.05 mg/inh [place]) methocarbamol (methocarbamol 750 mg Tab) methylPREDNISolone (methylPREDNISolone 4 mg tab dosepak) naproxen (naproxen sodium 550 mg Tab) omeprazole (omeprazole 20 mg Cap-DR) ondansetron (ondansetron 4 mg Dis Tab) pantoprazole polyethylene glycol 3350 (MiraLax 3350 Oral Pwdr for Recon 249 gram) promethazine (promethazine 12.5 mg oral tablet) Procedures Performed Colonoscopy (07/13/2022), EGD - Esophagogastroduodenoscopy (07/13/2022), Circumcision (2004), Myringotomy. Discharge Vitals Temperature (Temporal Artery) 36.5 ?C Heart Rate (Peripheral) 68 Respiratory Rate 24 Blood Pressure 128/72 Height 169 cm Height 67 in Weight 59.2 kg Weight 130.24 lb BMI 20.73 What to do next You Need to Schedule the Following Appointments Follow Up with Timi KOENIG MD, PED When: In 3 months Comments: recheck ADHD Where: [address] [address] [place] [address]- Medications What How Much When Why Instructions Changed amphetamine-dextroamphetamin e (amphetamine-dextroamphetami ne 30 mg ER Cap) 1 Capsules By Mouth Once a day (in the morning) Pickup at [facility]/pharmacy #[id number] Unchanged cetirizine (cetirizine 10 mg Tab) 1 Tablets By Mouth Every day Contact prescribing physician if questions or concerns Unchanged cetirizine (Zyrtec) By Mouth Every day as needed for Allergy symptoms Contact prescribing physician if questions or concerns Unchanged dicyclomine (dicyclomine 10 mg Cap) 1 Capsules By Mouth 4 times a day Contact prescribing physician if questions or concerns Unchanged docusate (Colace 100 mg Cap) 1 Capsules By Mouth 2 times a day as needed for for constipation Abdominal pain Constipation Contact prescribing physician if questions or concerns Unchanged docusate (docusate sodium 100 mg Cap) 20 EA, TAKE 1 CAPSULE BY MOUTH TWICE A DAY NEEDED FOR CONSTIPATION Contact prescribing physician if questions or concerns Unchanged fluticasone nasal (fluticasone Nasal 0.05 mg/ inh [place]) 2 Sprays Nasal Inhalation Every day each nostril Contact prescribing physician if questions or concerns Unchanged methocarbamol (methocarbamol 750 mg Tab) Contact prescribing physician if questions or concerns Unchanged methylPREDNISolone (methylPREDNISolone 4 mg tab dosepak) 1 Packets By Mouth Once Duration: 6 Days as directed on package labeling Contact prescribing physician if questions or concerns Unchanged naproxen (naproxen sodium 550 mg Tab) Contact prescribing physician if questions or concerns Unchanged omeprazole (omeprazole 20 mg Cap-DR) 30 EA, TAKE 1 CAPSULE BY MOUTH EVERY DAY Contact prescribing physician if questions or concerns Unchanged ondansetron (ondansetron 4 mg Dis Tab) 1 Tablets By Mouth Every 8 hours Contact prescribing physician if questions or concerns Unchanged pantoprazole 40 Unknown, Oral, 0 Refill(s) Contact prescribing physician if questions or concerns Unchanged polyethylene glycol 3350 (MiraLax 3350 Oral Pwdr for Recon 249 gram) 17 Gram By Mouth Every day Slow transit constipation Contact prescribing physician if questions or concerns Unchanged promethazine (promethazine 12.5 mg oral tablet) 1 Tablets By Mouth Every 6 hours Vomiting Abdominal pain Contact prescribing physician if questions or concerns Pharmacy Information [facility]/pharmacy #[id number]: [address], [place] [id number] [phone] Allergies Rocephin (Hives) Problems Ongoing - Any problem that you are currently receiving treatment for. Acute adjustment disorder with anxiety Acute adjustment disorder with mixed anxiety and depressed mood ADHD (attention deficit hyperactivity disorder) Bipolar disorder, current episode mixed, moderate Chest pain Chronic abdominal pain Dietary counseling Dysuria Exercise counseling GERD (gastroesophageal reflux disease) Insomnia Intrinsic asthma Migraines 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 Slow transit constipation Small intestinal bacterial overgrowth (SIBO) Suppurative otitis media of left ear without rupture of ear drum Syncope Viral illness Historical - Any problem that you are no longer receiving treatment for. Abdominal cramping Abdominal pain Abdominal pain, lower Acute costochondritis Acute gastroenteritis Costochondritis H (more content not included)... Normal [facility] ECG 12-Leadon 08-01-2023 ECG 12-Lead [id number] Normal [facility] ED Note-Physicianon 08-01-19 ED Note-Physician [id number] Normal [facility] RAD - CT Reporton 08-01-2023 RAD - CT Report [id number] Normal [facility] Pediatrics Office/Clinic Not homa 06-04-2023 Pediatrics Office/Clinic [...] with voice recognition artificial intelligence software, specifically [employer], [employer] and or [employer]. Substitutions may have occurred due to the inherent limitations of voice recognition and artificial intelligence software. Documentation services were performed after patient or guardian consented to allow [employer] to record this visit. MAEGAN environmental protection specialist and provider reviewed before signing. MAEGAN: Sophia Candones/Pasted by: Annetta Zeng. Total time spent preparing the chart, conducting of the encounter with the patient and family and time spent documenting, reviewing and ordering tests was 15 minutes Follow-up With When Contact Information LIBERTY SMITH, Timi Mukherjee, PED In [address] [place] [address]. [address] [place] [id number]- Additional Instructions: recheck ADHD Problem List/Past Medical [...] - Esophagogastroduodenoscopy (07/13/2022), Circumcision (2004), Myringotomy. Medications amphetamine-dextroamphetamin e 30 mg ER Cap, 30 mg= 1 cap(s), Oral, qAM Colace 100 mg Cap, 100 mg= 1 cap(s), Oral, BID, PRN dicyclomine 10 mg Cap, 10 mg= 1 cap(s), Oral, QID, 1 refills docusate sodium 100 mg Cap fluticasone Nasal 0.05 mg/inh [place], 2 spray(s), Nasal, Daily, 2 refills MiraLax [...] 07/19/2019 Student, Previous employment/school: 8th grade at [employer] 06/04/2019 Home/Environment Lives with Mother, Siblings. Living situation: Home/Independent., 07/19/2019 Sexual Sexually active: No., 06/04/19 (more content not included)... Normal [facility] Ambulatory Visit Summaryon 0 05-31-2023 Ambulatory Visit Summary PIETER BRENNAN :2005 Visit Date:05/31/2023 Ambulatory Visit Instructions Your Diagnosis Attention-deficit hyperactivity disorder, combined type Dysuria Your Care Team Attending Physician - Timi KOENIG MD Primary Care Physician - Timi KOENIG MD This Is Your Medications List amphetamine-dextroamphetamin e (amphetamine-dextroamphetami ne 30 mg ER Cap) Contact prescribing physician if questions or concerns cetirizine (Zyrtec) dicyclomine (dicyclomine 10 mg Cap) docusate (Colace 100 mg Cap) docusate (docusate sodium 100 mg Cap) fluticasone nasal (fluticasone Nasal 0.05 mg/inh [place]) omeprazole (omeprazole 20 mg Cap-DR) ondansetron (ondansetron [...] Appointments Monday. 2023 9:50 AM EDT With: LIBERTY SMITH, Timi Mukherjee [facility] 05-31-2023 Provider Letter (Inserted Image. Fabiana ble to display) May 31, 2023 PIETER BRENNAN [address] [place] [address] : 2005 To Whom It May Concern, Please excuse above student from school. Date of Absence: 05/29/23-05/31/23 May Return to School On: _ 06/01/23 Appointment Time In: _ Time Left Office: _ Restrictions: _ Comments: _ Sincerely, [facility] [address], [place] [address] [facility] Deric [facility]01[facility]20[facility] PIET[facility] BRENNAN ([id number]) [birth year] M Date Time Provider Department 08/01/22 CLARY BAKER During your visit today, we recorded the following information about you: Awilda Stratton MA 08/01/2022 9:48 AM Signed Spoke to: Mother Confirmed appointment on: 08/02/[address] Baker To bring records: [] Yes [x] No To Fax records to: [] Yes [x] No Confirmed phone number: [phone] Location: [facility] is located in the [facility]. [address] [place] [address] Instructions: Check in is located on the 1st floor. Please check in 15 minutes before your appointment. Please use The Appointment Pass Kiosks to electronically check in for your appointment. Attendants are available to assist. After check in please report to 2nd Floor. If for any reason a reschedule or cancellation is needed please call [phone]). Allergies As of Date: 08/01/2022 (Not on File) Date Reviewed: Never Reviewed Reason for Visit: Appointment [186] Problem List As Of Date: 08/01/2022 (None) Encounter Status:Closed by AWILDA STRATTON on 08/01/22 Normal [facility] CHEMISTRYOrdered By: SYSTEM SYSTEM on 07-27-2022 [...] 61 mg/dL Normal 55 - 199 mg/dL [facility] Remisol Potassium [Moles/Vol] 4.1 mmol/L Normal 3.5 - 5.3 mmol/L [facility] Protein [Mass/Vol] 7.2 g/dL Normal 6.0 - 7.8 gm/dL [facility] Sodium [Moles/Vol] 137 mmol/L Normal 135 - 145 mmol/L [facility] Urea nitrogen [Mass/Vol] 6 mg/dL Normal 5 - 21 mg/dL [facility] Rem[facility] Urea nitrogen/Creatinine [Mass ratio] 6 mg/mg Low 10 - 20 [facility] HEMATOLOGYOrdered By: SYSTEM SYSTEM on 07-27-2022 Basophils/100 WBC (Bld) 1.2 % Normal 0.0 - 2.0 % [facility] HemeAutoSS Basophils/Leukocyte s Auto (Bld) [Pure # fraction] 0.1 E9/L Normal 0.0 - 0.1 E9/L [facility] HemeAutoSS Eosinophils/100 WBC (Bld) 1.3 % Normal 0.0 - 8.0 % [facility] HemeAutoSS Eosinophils/Leukocy chanel Auto (Bld) [Pure # fraction] 0.1 E9/L Normal 0.0 - 0.7 E9/L [facility] HemeAutoSS Lymphocytes/100 WBC (Bld) 46.0 % Normal 14.0 - 55.0 % [facility] HemeAutoSS Lymphocytes/Leukocy chanel Auto (Bld) [Pure # fraction] 2.2 E9/L Normal 1.0 - 3.5 E9/L [facility] HemeAutoSS Monocytes/100 WBC (Bld) 8.6 % Normal 4.0 - 14.0 % [facility] HemeAutoSS Monocytes/Leukocyte s Auto (Bld) [Pure # fraction] 0.4 E9/L Normal 0.0 - 1.0 E9/L [facility] HemeAutoSS Neutrophils/100 WBC (Bld) 42.9 % Normal 36.0 - 75.0 % [facility] HemeAutoSS Neutrophils/Leukocy chanel Auto (Bld) [Pure # fraction] 2.0 E9/L [...] 88.2 fL Normal 78.0 - 95.0 fL [facility] HemeAutoSS Platelet mean volume (Bld) [Entitic vol] 8.3 fL Normal 6.0 - 9.5 fL [facility] HemeAutoSS Platelets (Bld) [#/Vol] 234.0 E9/L Normal 150.0 - 450.0 E9/L [facility] HemeAutoSS RBC (Bld) [#/Vol] 5.1 E12/L Normal 4.2 - 5.6 E12/L [facility] HemeAutoSS WBC corrected for nucl RBC Auto (Bld) [#/Vol] 4.7 E9/L Normal 4.0 - 10.5 E9/L [facility] HemeAutoSS XR KUB 1 VIEWon 06-18-2022 XR [...] MEAD Date: 2022-06-18 12:13 Normal [facility] AMYLASEon 06-16-2022 Amylase [Catalytic activity/Vol] 73 U/L Normal 25-115 [facility] Comment on above: Performed By: #### A MY, CRP #### [facility] [address] [place] [address] [address] Purnima Ward CRPon 06-16-2022 CRP [Mass/Vol] mg/L Normal <=1.0 [facility] Comment on above: Performed By: #### A MY, CRP #### [facility] [address] [place] [address] Dr. Purnima Ward TSH W/ REFLEX TO FT4on 06-16 TSH 1.232 uIU/mL Normal 0.516-4.130 [facility] Comment on above: Performed By: #### T [id number] #### [facility] [address] [place] [address] Dr. Purnima Ward [facility]15 SARS-CoV-2 (COVID-19) RNA CONRADO+probe Ql (Unsp spec) Detected Critically abnormal NOT DETECTED [facility] Comment on above: Result Comment: This test is not yet approved or cleared by the [place] FDA. When there are no FDA-approved or cleared tests available, and other criteria are met, FDA can make tests available under an emergency access mechanism called an Emergency Use Authorization (EUA). The EUA for this test is supported by the Liquor Blender of Health and Human Service's declaration that [...] Performed By: #### C VDTBH #### [facility] [address] [place], [place] [address] Dr. Purnima Ward GROUP A STREP CULTUREon 10-15 S. pyogenes Ag Ql (Unsp spec) Culture Observations: NEGATIVE FOR GROUP A STREPTOCOCCUS. Normal [facility] Comment on above: Performed By: #### G RASTCX, SSCRN #### [facility] [address] [place] [address] [address] Purnima Ward STREPT SCREENon 10-27-2021 STREP SCREEN A Negative Normal NEGATIVE [facility] Comment on above: Performed By: #### G RASTCX, SSCRN #### [facility] [address] [place] [address] [address] Purnima Ward XR CHEST 1 Von [...] by: ANNALISA ASHTON Date: 2021-10-27 06:05 Normal [facility] Progress Noteon 02-12-2021 Embedded Developer Authentication Interface Message Text History of Presenting [...] Current Outpatient Medications Medication Sig Dispense Refill amphetamine-dextroamphetamin e (ADDERALL XR) 30 MG capsule Take by [...] and his mother regarding the prognosis and termite exterminator management of this e (more content not included)... Normal [facility] Vital Signs Date Time Vital Sign Value Performing Clinician Facility 05-01-2024 14:00-0500 Body temperature 97.52 [degF] Timi KOENIG [facility] [place] 05-01-2024 14:00-0500 bodymassindex -0.23 kg/m2 Timi WNEK [facility] [place] Comment on above: Result Comment: ^~:!ZScore [facility] 05-01-2024 14:00-0500 Diastolic blood pressure 72 mm[Hg] Timi WNEK [facility] [place] 05-01-2024 14:00-0500 Heart rate 68 /min Timi WNEK [facility] [place] 05-01-2024 14:00-0500 Height/Length Percentile 14.02 1 Timi WNEK [facility] [place] Comment on above: Result Comment: ^~:!Percentile Source [facility] 05-01-2024 14:00-0500 Height/Length Z-Score -1.08 1 Timi WNEK [facility] [place] Comment on above: Result Comment: ^~:!ZScore [facility] 05-01-2024 14:00-0500 Respiratory rate 20 /min Timi WNEK [facility] [place] 05-01-2024 14:00-0500 Systolic blood pressure 110 mm[Hg] Timi WNEK [facility] [place] 05-01-2024 14:00-0500 weight -0.68 1 Timi WNEK [facility] [place] Comment on above: Result Comment: ^~:!ZScore [facility] 05-01-2024 14:00-0500 Weight Percentile 24.79 % Timi WNEK [facility] [place] Comment on above: Result Comment: ^~:!Percentile Source - [place] 01-17-2024 15:25-0400 Blood Pressure Location Timi WNEK [facility] [place] 01-17-2024 15:25-0400 Body temperature 98.6 [degF] Timi WNEK [facility] [place] 01-17-2024 15:25-0400 bodymassindex -0.22 kg/m2 Timi WNEK [facility] [place] Comment on above: Result Comment: ^~:!ZScore [facility] 01-17-2024 15:25-0400 Diastolic blood pressure 82 mm[Hg] Timi WNEK [facility] [place] 01-17-2024 15:25-0400 Heart rate 78 /min Timi WNEK [facility] 01-17-2024 15:25-0400 Height/Length Percentile 14.23 1 Timi WNEK [facility] Comment on above: Result Comment: ^~:!Percentile Source [facility] 01-17-2024 15:25-0400 Height/Length Z-Score -1.07 1 Timi HINESEK [facility] [place] Comment on above: Result Comment: ^~:!ZScore [facility] 01-17-2024 15:25-0400 Respiratory rate 14 /min Timi HINESEK [facility] 01-17-2024 15:25-0400 Systolic blood pressure 110 mm[Hg] Timi WNEK [facility] [place] 01-17-2024 15:25-0400 Weight Percentile 24.97 % Timi WNEK [facility] [place] Comment on above: Result Comment: ^~:!Percentile Source -[place] 01-17-2024 15:25-0400 Weight Z-Score -0.68 1 Timi WNEK [facility] [place] Comment on above: Result Comment: ^~:!ZScore [facility] 09-13-2023 16:03-0400 Body temperature 97.7 [degF] Timi HINESEK [facility] 09-13-2023 16:03-0400 bodymassindex -0.63 kg/m2 Timi WNEK [facility] [place] Comment on above: Result Comment: ^~:!ZScore [facility] 09-13-2023 16:03-0400 Diastolic blood pressure 72 mm[Hg] Timi WNEK [facility] 09-13-2023 16:03-0400 Heart rate 68 /min Timi WNEK [facility] 09-13-2023 16:03-0400 Height/Length Percentile 14.59 1 Timi WNEK [facility] Comment on above: Result Comment: ^~:!Percentile Source [facility] 09-13-2023 16:03-0400 Height/Length Z-Score -1.05 1 Timi WNEK [facility] Comment on above: Result Comment: ^~:!ZScore [facility] 09-13-2023 16:03-0400 Respiratory rate 24 /min Timi WNEK [facility] [place] 09-13-2023 16:03-0400 Systolic blood pressure 128 mm[Hg] Timi WNEK [facility] [place] 09-13-2023 16:03-0400 Weight Percentile 15.25 % Timi WNEK [facility] [place] Comment on above: Result Comment: ^~:!Percentile Source -[facility] [place] 09-13-2023 16:03-0400 Weight Z-Score -1.03 1 Timi WNEK [facility] [place] Comment on above: Result Comment: ^~:!ZScore [facility] 05-31-2023 09:35-0500 Body temperature 98.42 [degF] Timi FLORAEK [facility] [place] 05-31-2023 09:35-0500 bodymassindex 0 kg/m2 Timi WNEK [facility] [place] Comment on above: Result Comment: ^~:!ZScore [facility] 05-31-2023 09:35-0500 Diastolic blood pressure 68 mm[Hg] Timi HINESEK [facility] [place] 05-31-2023 09:35-0500 Heart rate 60 /min Timi WNEK [facility] [place] 05-31-2023 09:35-0500 Height/Length Percentile 7.38 1 Timi WNEK [facility] [place] Comment on above: Result Comment: ^~:!Percentile Source -[facility] [place] 05-31-2023 09:35-0500 Height/Length Z-Score -1.45 1 Timi HINESEK [facility] [place] Comment on above: Result Comment: ^~:!ZScore [facility] 05-31-2023 09:35-0500 Respiratory rate 16 /min Timi WNEK [facility] [place] 05-31-2023 09:35-0500 Systolic blood pressure 102 mm[Hg] Timi HINESEK [facility] [place] 05-31-2023 09:35-0500 Weight Percentile 23.46 % Timi WNEK [facility] [place] Comment on above: Result Comment: ^~:!Percentile Source -[facility] [place] 05-31-2023 09:35-0500 Weight Z-Score -0.72 1 Timi KOENIG [facility] [place] Comment on above: [facility] 13:56-0500 Blood Pressure Location Christopher Fermin [facility] [place] 04-26-2023 13:56-0500 Body temperature 97.52 [degF] Christopher Zavalafield [facility] [place] 04-26-2023 13:56-0500 bodymassindex -0.24 kg/m2 Christopher Zavalafield [facility] [place] Comment on above: Result Comment: ^~:![facility] 04-26-2023 13:56-0500 Diastolic blood pressure 64 mm[Hg] Christopher Zavalafield [facility] [place] 04-26-2023 13:56-0500 Heart rate 68 /min Christopher Zavalafield [facility] [place] 04-26-2023 13:56-0500 Height/Length Percentile 16.86 1 Christopher Fermin [facility] [place] Comment on above: Result Comment: ^~:![facility] 04-26-2023 13:56-0500 Height/Length Z-Score -0.96 1 Christopher Fermin [facility] [place] Comment on above: Result Comment: [facility] 04-26-2023 13:56-0500 Respiratory rate 14 /min Christopher Fermin [facility] [place] 04-26-2023 13:56-0500 SaO2% (BldA) [Mass fraction] 99 % Christopher Zavalafield [facility] [place] 04-26-2023 13:56-0500 Systolic blood pressure 92 mm[Hg] Christopher Fermin [facility] [place] 04-26-2023 13:56-0500 Weight Percentile 25.77 % Christopher Fermin [facility] [place] Comment on above: Result Comment: ^~:!Percentile Source -[facility] [place] 04-26-2023 13:56-0500 Weight Z-Score -0.65 1 Christopher Fermin [facility] [place] Comment on above: Result Comment: ^~:!ZScore [facility] 04-21-2023 14:17-0500 Body temperature 98.06 [degF] Rosa M CANTOR [facility] [place] 04-21-2023 14:17-0500 bodymassindex -0.19 kg/m2 Rosa M CANTOR [facility] [place] Comment on above: Result Comment: ^~:!ZScore [facility] 04-21-2023 14:17-0500 Diastolic blood pressure 82 mm[Hg] Rosa Male CANTOR [facility] [place] 04-21-2023 14:17-0500 Heart rate 64 /min Rosa M FALHANNA [facility] [place] 04-21-2023 14:17-0500 Height/Length Percentile 7.46 1 Rosa M CANTOR [facility] [place] Comment on above: Result Comment: ^~:!Percentile Source -[facility] [place] 04-21-2023 14:17-0500 Height/Length Z-Score -1.44 1 Rosa M CANTOR [facility] [place] Comment on above: Result Comment: ^~:!ZScore [facility] 04-21-2023 14:17-0500 Respiratory rate 18 /min Rosa M CANTOR [facility] [place] 04-21-2023 14:17-0500 Systolic blood pressure 110 mm[Hg] Rosa M CANTOR [facility] [place] 04-21-2023 14:17-0500 Weight Percentile 18.57 % Rosa M CANTOR [facility] [place] Comment on above: Result Comment: ^~:!Percentile Source [facility] [place] 04-21-2023 14:17-0500 Weight Z-Score -0.89 1 Rosa M CANTOR [facility] Comment on above: Result Comment: ^~:!ZScore [facility] 03-15-2023 13:55-0500 Blood Pressure Location Timi WNEK [facility] 03-15-2023 13:55-0500 Body temperature 97.88 [degF] Timi WNEK [facility] 03-15-2023 13:55-0500 bodymassindex -0.21 kg/m2 Timi WNEK [facility] [place] Comment on above: Result Comment: ^~:!ZScore [facility] 03-15-2023 13:55-0500 Diastolic blood pressure 54 mm[Hg] Timi WNEK [facility] [place] 03-15-2023 13:55-0500 Heart rate 72 /min Timi WNEK [facility] [place] 03-15-2023 13:55-0500 Height/Length Percentile 15.32 1 Timi WNEK [facility] [place] Comment on above: Result Comment: ^~:!Percentile Source -[facility] [place] 03-15-2023 13:55-0500 Height/Length Z-Score -1.02 1 Timi WNEK [facility] Comment on above: Result Comment: ^~:!ZScore [facility] 03-15-2023 13:55-0500 Respiratory rate 14 /min Timi WNEK [facility] 03-15-2023 13:55-0500 Systolic blood pressure 86 mm[Hg] Timi WNEK [facility] [place] 03-15-2023 13:55-0500 weight -0.67 1 Timi WNEK [facility] Comment on above: Result Comment: ^~:!ZScore [facility] 03-15-2023 13:55-0500 Weight Percentile 25.24 % Timi WNEK [facility] Comment on above: Result Comment: ^~:!Percentile [facility] 03-01-2023 13:58-0500 Body temperature 97.7 [degF] Timi HINESEK [facility] 03-01-2023 13:58-0500 bodymassindex -0.25 kg/m2 Timi WNEK [facility] Comment on above: Result Comment: ^~:!ZScore [facility] 03-01-2023 13:58-0500 Diastolic blood pressure 70 mm[Hg] Timi WNEK [facility] 03-01-2023 13:58-0500 Heart rate 64 /min Timi WNEK [facility] 03-01-2023 13:58-0500 Height/Length Percentile 15.47 1 [facility] Comment on above: Result Comment: ^~:!Percentile Source [facility] 03-01-2023 13:58-0500 Height/Length Z-Score -1.02 1 Timi WNEK [facility] [place] Comment on above: Result Comment: ^~:!ZScore [facility] 03-01-2023 13:58-0500 Respiratory rate 12 /min Timi WNEK [facility] [place] 03-01-2023 13:58-0500 Systolic blood pressure 110 mm[Hg] Timi WNEK [facility] [place] 03-01-2023 13:58-0500 weight -0.69 1 Timi WNEK [facility] [place] Comment on above: Result Comment: ^~:!ZScore [facility] 03-01-2023 13:58-0500 Weight Percentile 24.36 % Timi WNEK [facility] [place] Comment on above: Result Comment: ^~:!Percentile Source [facility] 02-08-2023 10:26-0400 Body temperature 97.7 [degF] Timi WNEK [facility] [place] 02-08-2023 10:26-0400 bodymassindex -0.41 kg/m2 Timi WNEK [facility] [place] Comment on above: Result Comment: ^~:!ZScore [facility] 02-08-2023 10:26-0400 Diastolic blood pressure 70 mm[Hg] Timi WNEK [facility] [place] 02-08-2023 10:26-0400 Heart rate 60 /min Timi WNEK [facility] [place] 02-08-2023 10:26-0400 Height/Length Percentile 15.63 1 Timi WNEK [facility] [place] Comment on above: Result Comment: ^~:!Percentile Source - [place] 02-08-2023 10:26-0400 Height/Length Z-Score -1.01 1 Timi HINESEK [facility] [place] Comment on above: Result Comment: ^~:!ZScore [facility] 02-08-2023 10:26-0400 Respiratory rate 16 /min Timi WNEK [facility] [place] 02-08-2023 10:26-0400 SaO2% (BldA) [Mass fraction] 98 % Timi WNEK [facility] 02-08-2023 10:26-0400 Systolic blood pressure 110 mm[Hg] Timi HINESEK [facility] [place] 02-08-2023 10:26-0400 weight -0.83 1 Timi WNEK [facility] [place] Comment on above: Result Comment: ^~:!Mario Alberto [facility] 02-08-2023 10:26-0400 Weight Percentile 20.40 % Timi HINESEK [facility] Comment on above: Result Comment: ^~:!Percentile Source [facility] [facility] 02-01-2023 10:41-0400 Body temperature 96.8 [degF] Timi WNEK [facility] [place] 02-01-2023 10:41-0400 bodymassindex -0.35 kg/m2 Timi WNEK [facility] [place] Comment on above: Result Comment: ^~:!ZScore [facility] 02-01-2023 10:41-0400 Diastolic blood pressure 70 mm[Hg] Timi WNEK [facility] [place] 02-01-2023 10:41-0400 Heart rate 64 /min Timi HINESEK [facility] [place] 02-01-2023 10:41-0400 Height/Length Percentile 12.56 1 Timi WNEK [facility] [place] Comment on above: Result Comment: ^~:!Percentile Source -[facility] [place] 02-01-2023 10:41-0400 Height/Length Z-Score -1.15 1 Timi HINESEK [facility] [place] Comment on above: Result Comment: ^~:!ZScore [facility] 02-01-2023 10:41-0400 Respiratory rate 12 /min Timi HINESEK [facility] [place] 02-01-2023 10:41-0400 SaO2% (BldA) [Mass fraction] 97 % Timi HINESEK [facility] [place] 02-01-2023 10:41-0400 Systolic blood pressure 110 mm[Hg] Timi HINESEK [facility] [place] 02-01-2023 10:41-0400 weight -0.86 1 Timi HINESEK [facility] [place] Comment on above: Result Comment: ^~:!ZScore Source [facility] 02-01-2023 10:41-0400 Weight Percentile 19.41 % Timi HINESEK [facility] [place] Comment on above: Result Comment: ^~:!Percentile Source -[facility] [place] 01-25-2023 10:43-0400 Blood Pressure Location Timi WNEK [facility] [place] 01-25-2023 10:43-0400 Body temperature 97.7 [degF] Timi HINESEK [facility] [place] 01-25-2023 10:43-0400 bodymassindex -0.3 kg/m2 Timi WNEK [facility] [place] Comment on above: Result Comment: ^~:!ZScore [facility] 01-25-2023 10:43-0400 Diastolic blood pressure 70 mm[Hg] Timi WNEK [facility] [place] 01-25-2023 10:43-0400 Heart rate 72 /min Timi WNEK [facility] [place] 01-25-2023 10:43-0400 Height/Length Percentile 14.04 1 Timi WNEK [facility] [place] Comment on above: Result Comment: ^~:!Percentile Source [facility] 01-25-2023 10:43-0400 Height/Length Z-Score -1.08 1 Timi WNEK [facility] [place] Comment on above: Result Comment: ^~:!JACEYcore [facility] 01-25-2023 10:43-0400 Respiratory rate 16 /min Timi WNEK [facility] [place] 01-25-2023 10:43-0400 Systolic blood pressure 104 mm[Hg] Timi WNEK [facility] [place] 01-25-2023 10:43-0400 weight -0.78 1 Timi WNEK [facility] [place] Comment on above: Result Comment: ^~:!ZScore [facility] 01-25-2023 10:43-0400 Weight Percentile 21.76 % Timi WNEK [facility] [place] Comment on above: Result Comment: ^~:!Percentile Source - [place] 01-04-2023 10:03-0400 Blood Pressure Location Timi WNEK [facility] 01-04-2023 10:03-0400 Body temperature 98.24 [degF] Timi WNEK [facility] 01-04-2023 10:03-0400 bodymassindex -0.43 Timi WNEK [facility] [place] Comment on above: Result Comment: ^~:!ZScore [facility] 01-04-2023 10:03-0400 Diastolic blood pressure 56 mm[Hg] Timi WNEK [facility] 01-04-2023 10:03-0400 Heart rate 76 /min Timi WNEK [facility] 01-04-2023 10:03-0400 Height/Length Percentile 18.42 Timi WNEK [facility] Comment on above: Result Comment: ^~:!Percentile [facility] 01-04-2023 10:03-0400 Height/Length Z-Score -0.90 Timi WNEK [facility] Comment on above: Result Comment: ^~:!ZScore [facility] 01-04-2023 10:03-0400 Respiratory rate 16 /min Timi WNEK [facility] 01-04-2023 10:03-0400 Systolic blood pressure 90 mm[Hg] Timi WNEK [facility] [place] 01-04-2023 10:03-0400 weight -0.78 Timi WNEK [facility] [place] Comment on above: Result Comment: ^~:!ZScore [facility] 01-04-2023 10:03-0400 Weight Percentile 21.64 % Timi WNEK [facility] [place] Comment on above: Result Comment: ^~:!Percentile Source [facility] 12-21-2022 15:09-0400 Blood Pressure Location Timi HINESEK [facility] 12-21-2022 15:09-0400 Body temperature 97.88 [degF] Timi WNEK [facility] [place] 12-21-2022 15:09-0400 bodymassindex -0.74 Timi WNEK [facility] [place] Comment on above: Result Comment: ^~:!ZScore [facility] 12-21-2022 15:09-0400 Diastolic blood pressure 64 mm[Hg] Timi WNEK [facility] 12-21-2022 15:09-0400 Heart rate 78 /min Timi WNEK [facility] 12-21-2022 15:09-0400 Height/Length Percentile 19.35 Timi WNEK [facility] [place] Comment on above: Result Comment: ^~:!Percentile Source [facility] 12-21-2022 15:09-0400 Height/Length Z-Score -0.87 Timi HINESEK [facility] [place] Comment on above: Result Comment: ^~:!ZScore [facility] 12-21-2022 15:09-0400 Respiratory rate 18 /min Timi WNEK [facility] 12-21-2022 15:09-0400 SaO2% (BldA) [Mass fraction] 97 % Timi WNEK [facility] [place] 12-21-2022 15:09-0400 Systolic blood pressure 92 mm[Hg] Timi WNEK [facility] [place] 12-21-2022 15:09-0400 weight -1.01 Timi WNEK [facility] [place] Comment on above: Result Comment: ^~:!ZScore [facility] 12-21-2022 15:09-0400 Weight Percentile 15.51 % Timi WNEK [facility] [place] Comment on above: Result Comment: ^~:!Percentile Source - [place] 11-29-2022 13:13-0400 Blood Pressure Location Timi WNEK [facility] [place] 11-29-2022 13:13-0400 Body temperature 98.24 [degF] Timi WNEK [facility] [place] 11-29-2022 13:13-0400 bodymassindex -0.51 Timi WNEK [facility] [place] Comment on above: Result Comment: ^~:!ZScore [facility] 11-29-2022 13:13-0400 Diastolic blood pressure 76 mm[Hg] Timi WNEK [facility] [place] 11-29-2022 13:13-0400 Heart rate 72 /min Timi WNEK [facility] [place] 11-29-2022 13:13-0400 Height/Length Percentile 10.22 Timi WNEK [facility] [place] Comment on above: Result Comment: ^~:!Percentile Source - [place] 11-29-2022 13:13-0400 Height/Length Z-Score -1.27 Timi WNEK [facility] [place] Comment on above: Result Comment: ^~:!ZScore [facility] 11-29-2022 13:13-0400 Respiratory rate 16 /min Timi WNEK [facility] [place] 11-29-2022 13:13-0400 Systolic blood pressure 100 mm[Hg] Timi HINESEK [facility] 11-29-2022 13:13-0400 weight -1.08 Timi HINESEK [facility] [place] Comment on above: Result Comment: ^~:!ZScore [facility] 11-29-2022 13:13-0400 Weight Percentile 13.95 % Timi HINESEK [facility] [place] Comment on above: Result Comment: ^~:!Percentile Source [facility] 07-27-2022 13:12-0400 Blood Pressure Location Timi KOENIG [facility] 07-27-2022 13:12-0400 Body temperature 99.5 [degF] Timi HINESEK [facility] 07-27-2022 13:12-0400 bodymassindex 0.06 Timi HINESEK [facility] [place] Comment on above: [facility] 13:12-0400 Diastolic blood pressure 66 mm[Hg] Timi KOENIG [facility] 07-27-2022 13:12-0400 Heart rate 80 /min Timi HINESEK [facility] [place] 07-27-2022 13:12-0400 Height/Length Percentile 8.57 Timi HINESEK [facility] [place] Comment on above: Result Comment: ^~:!Percentile Source [facility] 07-27-2022 13:12-0400 Height/Length Z-Score -1.37 Timi HINESEK [facility] [place] Comment on above: [facility] Comment[facility] 13:12-0400 Respiratory rate 16 /min Timi WNEK [facility] [place] 07-27-2022 13:12-0400 Systolic blood pressure 94 mm[Hg] Timi WNEK [facility] [place] 07-27-2022 13:12-0400 weight -0.65 Timi WNEK [facility] [place] Comment on above: Result Comment: ^~:![facility] 07-27-2022 13:12-0400 Weight Percentile 25.89 % Timi WNEK [facility] [place] Comment on above: Result Comment: ^~:![facility] 07-27-2022 10:55-0400 Blood Pressure Location Nelli Randallmetz [facility] 07-27-2022 10:55-0400 Body temperature 97.7 [degF] Nelli Randallmetz [facility] 07-27-2022 10:55-0400 bodymassindex -0.03 Nelli Randallmetz [facility] Comment on above: Result Comment: ^~:![facility] 07-27-2022 10:55-0400 Diastolic blood pressure 66 mm[Hg] Nelli Randallmetz [facility] 07-27-2022 10:55-0400 Heart rate 60 /min Nelli Randallmetz [facility] 07-27-2022 10:55-0400 Height/Length Percentile 12.21 Nellihaley RandallRancho [facility] Comment on above: Result Comment: ^~:!Percentile Source -[facility] [place] 07-27-2022 10:55-0400 Height/Length Z-Score -1.16 Nelli Vickers [facility] Comment on above: Result Comment: ^~:!ZScore [facility] 07-27-2022 10:55-0400 Systolic blood pressure 100 mm[Hg] Nelli Vickers [facility] 07-27-2022 10:55-0400 weight -0.60 Nelli Vickers [facility] Comment on above: Result Comment: ^~:!ZScore [facility] 07-27-2022 10:55-0400 Weight Percentile 27.37 % Nelli Vickers [facility] Comment on above: Result Comment: ^~:!Percentile Source -[facility] [place] 06-29-2022 10:47-0400 Body temperature 98.06 [degF] Timi WNEK [facility] [place] 06-29-2022 10:47-0400 bodymassindex 0.06 Timi WNEK [facility] [place] Comment on above: Result Comment: ^~:!ZScore [facility] 06-29-2022 10:47-0400 Diastolic blood pressure 62 mm[Hg] Timi WNEK [facility] [place] 06-29-2022 10:47-0400 Heart rate 88 /min Timi WNEK [facility] [place] 06-29-2022 10:47-0400 Height/Length Percentile 12.42 Timi WNEK [facility] [place] Comment on above: Result Comment: ^~:!Percentile Source -[facility] [place] 06-29-2022 10:47-0400 Height/Length Z-Score -1.15 Timi HINESEK [facility] [place] Comment on above: Result Comment: ^~:!ZScore [facility] 06-29-2022 10:47-0400 Respiratory rate 22 /min Timi WNEK [facility] [place] 06-29-2022 10:47-0400 Systolic blood pressure 110 mm[Hg] Timi WNEK [facility] [place] 06-29-2022 10:47-0400 weight -0.51 Timi WNEK [facility] [place] Comment on above: Result Comment: ^~:![facility] 06-29-2022 10:47-0400 Weight Percentile 30.38 % Timi WNEK [facility] [place] Comment on above: Result Comment: ^~:!Percentile Source [facility] 06-22-2022 10:49-0500 Diastolic blood pressure 62 mm[Hg] Wilkins SALAM [facility] 06-22-2022 10:49-0500 Mean blood pressure 74 mm[Hg] Wilkins SALAM [facility] 06-22-2022 10:49-0500 Systolic blood pressure 98 mm[Hg] Wilkins SALAM [facility] 06-22-2022 10:45-0500 Blood Pressure Location Wilkins SALAM [facility] 06-22-2022 10:45-0500 bodymassindex -0.07 Wilkins SALAM [facility] Comment on above: Result Comment: ^~:!ZScore [facility] 06-22-2022 10:45-0500 Diastolic blood pressure 60 mm[Hg] Wilkins SALAM [facility] 06-22-2022 10:45-0500 Heart rate 63 /min Wilkins SALAM [facility] 06-22-2022 10:45-0500 Height/Length Percentile 12.42 Wilkins SALAM [facility] Comment on above: Result Comment: ^~:!Percentile Source [facility] 06-22-2022 10:45-0500 Height/Length Z-Score -1.15 Wilkins SALAM [facility] Comment on above: Result Comment: ^~:!ZScore Source [facility] 06-22-2022 10:45-0500 Respiratory rate 16 /min Wilkins SALAM [facility] 06-22-2022 10:45-0500 SaO2% (BldA) [Mass fraction] 97 % Wilkins SALAM [facility] 06-22-2022 10:45-0500 Systolic blood pressure 96 mm[Hg] Wilkins SALAM [facility] 06-22-2022 10:45-0500 weight -0.64 Wilkins SALAM [facility] Comment on above: Result Comment: ^~:!ZScore Source [facility] 06-22-2022 10:45-0500 Weight Percentile 26.25 % Wilkins SALAM [facility] Comment on above: Result Comment: ^~:!Percentile Source -[place] 05-18-2022 13:05-0500 Blood Pressure Location Timi KOENIG [facility] [place] 05-18-2022 13:05-0500 Body temperature 98.78 [degF] Timi KOENIG [facility] [place] 05-18-2022 13:05-0500 bodymassindex 0.23 Timi WNEK [facility] [place] Comment on above: Result Comment: ^~:!ZScore [facility] 05-18-2022 13:05-0500 Diastolic blood pressure 54 mm[Hg] Timi WNEK [facility] [place] 05-18-2022 13:05-0500 Heart rate 78 /min Timi WNEK [facility] [place] 05-18-2022 13:05-0500 Height/Length Percentile 13.37 Timi WNEK [facility] [place] Comment on above: Result Comment: ^~:!Percentile Source - [place] 05-18-2022 13:05-0500 Height/Length Z-Score -1.11 Timi WNEK [facility] [place] Comment on above: Result Comment: ^~:!ZScore [facility] 05-18-2022 13:05-0500 Respiratory rate 16 /min Timi HINESEK [facility] [place] 05-18-2022 13:05-0500 Systolic blood pressure 86 mm[Hg] Timi WNEK [facility] [place] 05-18-2022 13:05-0500 weight -0.34 Timi WNEK [facility] [place] Comment on above: Result Comment: ^~:!ZScore [facility] 05-18-2022 13:05-0500 Weight Percentile 36.57 % Timi WNEK [facility] [place] Comment on above: Result Comment: ^~:!Percentile Source - [place] 04-20-2022 09:26-0500 Blood Pressure Location Sofia SAM [facility] 04-20-2022 09:26-0500 Body temperature 98.42 [degF] Sofia SAM [facility] 04-20-2022 09:26-0500 Diastolic blood pressure 62 mm[Hg] Sofia SAM [facility] [place] 04-20-2022 09:26-0500 Heart rate 76 /min Sofia SAM [facility] 04-20-2022 09:26-0500 Height/Length Percentile 0.00 Sofia SAM [facility] Comment on above: Result Comment: ^~:!Percentile Source -[place] 04-20-2022 09:26-0500 Height/Length Z-Score -15.12 Sofia SAM [facility] Comment on above: Result Comment: ^~:!ZScore Source [facility] 04-20-2022 09:26-0500 Respiratory rate 20 /min Sofia SAM [facility] 04-20-2022 09:26-0500 Systolic blood pressure 108 mm[Hg] Sofia SAM [facility] 04-20-2022 09:26-0500 weight -0.28 Sofia SAM [facility] Comment on above: Result Comment: ^~:!ZScore Source -[facility] 04-20-2022 09:26-0500 Weight Percentile 38.96 % Sofia MOHAMUDIN [facility] Comment on above: Result Comment: ^~:!Percentile Source -[facility] [place] 02-18-2022 13:01-0400 Body temperature 97.34 [degF] Lizeth Arevalo [facility] [place] 02-18-2022 13:01-0400 Diastolic blood pressure 62 mm[Hg] Lzieth Arevalo [facility] 02-18-2022 13:01-0400 Heart rate 68 /min Lizeth Arevalo [facility] [place] 02-18-2022 13:01-0400 Respiratory rate 16 /min Lizeth Arevalo [facility] 02-18-2022 13:01-0400 SaO2% (BldA) [Mass fraction] 97 % Lizeth Arevalo [facility] 02-18-2022 13:01-0400 Systolic blood pressure 100 mm[Hg] Lizeth Arevalo [facility] 02-02-2022 14:44-0400 Body temperature 98.06 [degF] Timi WNEK [facility] 02-02-2022 14:44-0400 Diastolic blood pressure 64 mm[Hg] Timi WNEK [facility] 02-02-2022 14:44-0400 Heart rate 64 /min Timi WNEK [facility] [place] 02-02-2022 14:44-0400 Respiratory rate 16 /min Timi WNEK [facility] 02-02-2022 14:44-0400 Systolic blood pressure 100 mm[Hg] Timi WNEK [facility] 01-19-2022 13:11-0400 Blood Pressure Location Timi WNEK [facility] 01-19-2022 13:11-0400 Diastolic blood pressure 68 mm[Hg] Timi WNEK [facility] 01-19-2022 13:11-0400 Heart rate 96 /min Timi WNEK [facility] 01-19-2022 13:11-0400 Respiratory rate 18 /min Timi WNEK [facility] 01-19-2022 13:11-0400 Systolic blood pressure 90 mm[Hg] Timi WNEK [facility] 01-05-2022 11:38-0400 Blood Pressure Location Timi WNEK [facility] 01-05-2022 11:38-0400 Body temperature 98.42 [degF] Timi WNEK [facility] 01-05-2022 11:38-0400 Diastolic blood pressure 56 mm[Hg] Timi WNEK [facility] 01-05-2022 11:38-0400 Heart rate 116 /min Timi WNEK [facility] 01-05-2022 11:38-0400 Respiratory rate 20 /min Timi WNEK [facility] 01-05-2022 11:38-0400 Systolic blood pressure 92 mm[Hg] Timi WNEK [facility] 10-20-2021 15:41-0400 Blood Pressure Location Timi WNEK [facility] 10-20-2021 15:41-0400 Body temperature 97.7 [degF] Timi WNEK [facility] [place] 10-20-2021 15:41-0400 Diastolic blood pressure 52 mm[Hg] Timi WNEK [facility] [place] 10-20-2021 15:41-0400 Heart rate 78 /min Timi WNEK [facility] [place] 10-20-2021 15:41-0400 Respiratory rate 18 /min Timi WNEK [facility] [place] 10-20-2021 15:41-0400 Systolic blood pressure 118 mm[Hg] Timi WNEK [facility] [place] 09-01-2021 14:15-0400 Blood Pressure Location Timi WNEK [facility] [place] 09-01-2021 14:15-0400 Body temperature 98.24 [degF] Timi WNEK [facility] [place] 09-01-2021 14:15-0400 Diastolic blood pressure 58 mm[Hg] Timi WNEK [facility] [place] 09-01-2021 14:15-0400 Heart rate 74 /min Timi WNEK [facility] [place] 09-01-2021 14:15-0400 Respiratory rate 16 /min Timi WNEK [facility] [place] 09-01-2021 14:15-0400 Systolic blood pressure 120 mm[Hg] Timi WNEK [facility] [place] 08-24-2021 15:43-0400 Blood Pressure Location Vanessa Stovall [facility] [place] 08-24-2021 15:43-0400 Body temperature 98.06 [degF] Vanessa Springfield [facility] [place] 08-24-2021 15:43-0400 Diastolic blood pressure 50 mm[Hg] Vanessa [place] [facility] [place] 08-24-2021 15:43-0400 Heart rate 78 /min Vanessa [place] [facility] [place] 08-24-2021 15:43-0400 Respiratory rate 18 /min Vanessa [place] [facility] [place] 08-24-2021 15:43-0400 Systolic blood pressure 118 mm[Hg] Vanessa [place] [facility] [place] 08-18-2021 15:24-0400 Blood Pressure Location Timi HINESEK [facility] [place] 08-18-2021 15:24-0400 Body temperature 97.34 [degF] Timi HINESEK [facility] [place] 08-18-2021 15:24-0400 Diastolic blood pressure 60 mm[Hg] Timi WNEK [facility] [place] 08-18-2021 15:24-0400 Heart rate 76 /min Timi WNEK [facility] [place] 08-18-2021 15:24-0400 Respiratory rate 16 /min Timi WNEK [facility] [place] 08-18-2021 15:24-0400 Systolic blood pressure 118 mm[Hg] Timi WNEK [facility] [place] 08-10-2021 08:40-0400 Blood Pressure Location Vanessa Springfield [facility] [place] 08-10-2021 08:40-0400 Body temperature 97.88 [degF] Vanessa [place] [facility] [place] 08-10-2021 08:40-0400 Diastolic blood pressure 70 mm[Hg] Vanessa [place] [facility] [place] 08-10-2021 08:40-0400 Heart rate 72 /min Vanessa [place] [facility] [place] 08-10-2021 08:40-0400 Respiratory rate 16 /min Vanessa [place] [facility] [place] 08-10-2021 08:40-0400 Systolic blood pressure 118 mm[Hg] Vanessa [place] [facility] [place] 07-28-2021 13:51-0400 Blood Pressure Location Timi WNEK [facility] [place] 07-28-2021 13:51-0400 Body temperature 98.42 [degF] Timi WNEK [facility] [place] 07-28-2021 13:51-0400 Diastolic blood pressure 68 mm[Hg] Timi WNEK [facility] [place] 07-28-2021 13:51-0400 Heart rate 80 /min Timi WNEK [facility] [place] 07-28-2021 13:51-0400 Respiratory rate 18 /min Timi WNEK [facility] [place] 07-28-2021 13:51-0400 Systolic blood pressure 118 mm[Hg] Timi WNEK [facility] [place] 07-21-2021 08:51-0400 Blood Pressure Location Tiim WNEK [facility] [place] 07-21-2021 08:51-0400 Body temperature 98.24 [degF] Timi WNEK [facility] [place] 07-21-2021 08:51-0400 Diastolic blood pressure 68 mm[Hg] Timi WNEK [facility] [place] 07-21-2021 08:51-0400 Heart rate 76 /min Timi WNEK [facility] [place] 07-21-2021 08:51-0400 Respiratory rate 18 /min Timi WNEK [facility] [place] 07-21-2021 08:51-0400 Systolic blood pressure 118 mm[Hg] Timi WNEK [facility] [place] 07-14-2021 09:58-0400 Blood Pressure Location Timi WNEK [facility] [place] 07-14-2021 09:58-0400 Body temperature 98.6 [degF] Timi FLORAEK [facility] [place] 07-14-2021 09:58-0400 Diastolic blood pressure 68 mm[Hg] Timi WNEK [facility] [place] 07-14-2021 09:58-0400 Systolic blood pressure 118 mm[Hg] Timi WNEK [facility] [place] Encounters Encounter Date Encounter Type Care Provider Facility Start: 07-17-2024 ambulatory Timi KOENIG Facility:[facility] [place] Start: 05-01-2024 End: 05-01-2024 ambulatory Timi R FLORAEK Facility:[facility] [place] [facility] Start: 05-01-2024 End: 05-01-2024 Patient encounter procedure Timi HINESEK [facility] [place] Start: 01-17-2024 End: 01-17-2024 ambulatory Timi R FLORAEK Facility:[facility] [place] Start: 01-17-2024 End: 01-17-2024 Patient encounter procedure Timi R FLORAEK [facility] [place] Start: 12-27-2023 ambulatory Timi R WNEK Facility:[facility] [place] Start: 12-20-2023 ambulatory Timi R WNEK Facility:[facility] [place] Start: 09-13-2023 End: 09-13-2023 ambulatory Timi R WNEK Facility:[facility] [place] Start: 09-13-2023 End: 09-13-2023 Patient encounter procedure Timi R WNEK [facility] [place] Start: 09-05-2023 ambulatory Timi R WNEK Facility:[facility] [place] Start: 09-05-2023 ambulatory Timi WNEK Facility:[facility] [place] Start: 08-23-2023 ambulatory Timi R WNEK Facility:[facility] [place] Start: 05-31-2023 End: 05-31-2023 ambulatory Timi R WNEK Facility:[facility] [place] Start: 05-31-2023 End: 05-31-2023 Patient encounter procedure Timi R FLORAEK [facility] [place] Start: 04-26-2023 End: 04-26-2023 Patient encounter procedure Christopher Fermin [facility] [place] Start: 04-21-2023 End: 04-21-2023 Patient encounter procedure Rosa M CANTOR [facility] [place] Start: 03-15-2023 End: 03-15-2023 Patient encounter procedure Timi HINESEK [facility] [place] Start: 03-01-2023 End: 03-01-2023 Patient encounter procedure Timi KOENIG [facility] [place] Start: 02-08-2023 End: 02-08-2023 Patient encounter procedure Timi KOENIG [facility] [place] Start: 02-01-2023 End: 02-01-2023 Patient encounter procedure Timi KOENIG [facility] [place] Start: 01-25-2023 End: 01-25-2023 Patient encounter procedure Timi KOENIG [facility] [place] Start: 01-04-2023 End: 01-04-2023 Patient encounter procedure Timi KOENIG [facility] [place] Start: 12-28-2022 End: 12-28-2022 Patient encounter procedure Timi KOENIG [facility] [place] Start: 12-21-2022 End: 12-21-2022 Patient encounter procedure Timi KOENIG [facility] [place] Start: 11-29-2022 End: 11-29-2022 Patient encounter procedure Timi KOENIG [facility] [place] Start: 11-29-2022 End: 11-29-2022 Well adult monitoring check done Timi KOENIG [facility] [place] Start: 08-01-2022 Telephone encounter Clary lamas MD Work Phone: Peds Gastroenterology Comment on above: Appointment Start: 07-29-2022 End: 09-14-2022 Pre-admission assessment Nelli Rueda [facility] Start: 07-27-2022 End: 07-27-2022 Patient encounter procedure Timi KOENIG [facility] [place] Start: 06-29-2022 End: 06-29-2022 Patient encounter procedure Timi KOENIG [facility] [place] Start: 06-22-2022 End: 06-22-2022 Patient encounter procedure Wilkins PATO [facility] Start: 06-16-2022 End: 06-17-[address] TIMI KOENIG Facility: Start: 05-18-2022 End: 05-18-2022 Patient encounter procedure Timi KOENIG [facility] [place] Start: 04-20-2022 End: 04-20-2022 Patient encounter procedure Sofia SAM [facility] [place] Start: 02-18-2022 End: 02-18-2022 Patient encounter procedure Lizeth Arevalo [facility] [place] Start: 02-15-2022 End: 05-16-2022 Patient encounter procedure Timi KOENIG [facility] Start: 02-02-2022 End: 02-02-2022 Patient encounter procedure Timi KOENIG [facility] [place] Start: 01-19-2022 End: 01-19-2022 Patient encounter procedure Timi KOENIG [facility] [place] Start: 01-05-2022 End: 01-05-2022 Patient encounter procedure Timi KOENIG [facility] [place] Start: 11-27-2021 End: 11-28-[address] TIMI KOENIG Facility:[facility] Start: 10-27-2021 End: 10-27-[address] TIMI KOENIG Facility:[facility] Start: 10-20-2021 End: 10-20-2021 Patient encounter procedure Timi KOENIG [facility] [place] Start: 09-01-2021 End: 09-01-2021 Patient encounter procedure Timi KOENIG [facility] [place] Start: 08-24-2021 End: 08-24-2021 Patient encounter procedure Vanessa Stovall [facility] [place] Start: 08-18-2021 End: 08-18-2021 Patient encounter procedure Timi KOENIG [facility] [place] Start: 08-10-2021 End: 08-10-2021 Patient encounter procedure Vanessa Stovall [facility] [place] Start: 07-28-2021 End: 07-28-2021 Patient encounter procedure Timi KOENIG [facility] [place] Start: 07-21-2021 End: 07-21-2021 Lab Drop off Timi HINESHAYDEE [facility] Start: 07-21-2021 End: 07-21-2021 Patient encounter procedure Timi Yaz HINESHAYDEE [facility] [place] Start: 07-14-2021 End: 07-14-2021 Patient encounter procedure Timi HINESHAYDEE [facility] [place] Procedures Date Procedure Procedure Detail Performing Clinician Start: 07-13-2022 Colonoscopy Timi KOENIG Start: 07-13-2022 Esophagogastroduodenoscopy Timi KOENIG Start: 2004 Circumcision Timi KOENIG Tympanotomy Timi KOENIG Plan of Treatment Date Care Activity Detail Author Start: 2020 MENINGOCOCCAL CONJUG ATE (1 - 2-dose series) MENINGOCOCCAL CONJUGATE (1 - 2-dose series) [facility] Start: 2018 PEDS TO ADULT TRANSI TION ANNUAL ASSESSMENT PEDS TO ADULT TRANSITION ANNUAL ASSESSMENT [facility] Start: 2016 Adult depression scr eening assessment DEPRESSION SCREENING [facility] Start: 2016 PEDS TO ADULT TRANSI TION INITIAL DISCUSSION PEDS TO ADULT TRANSITION INITIAL DISCUSSION [facility] Start: 11-13-2015 HPV VACCINE (1 - Mal e 2-dose series) HPV VACCINE (1 - Male 2-dose series) [facility] Start: 11-13-2011 Urine microalbumin profile DTAP,TDAP ,TD (1 - Tdap) [facility] Start: 2005 MMR (1 of 2 - Standa rd series) MMR (1 of 2 - Standard series) [facility] Start: 2005 VARICELLA (1 of 2 - 2-dose childhood series) VARICELLA (1 of 2 - 2-dose childhood series) [facility] Start: 05-15-2005 COVID-19 VACCINE (#1) COVID-19 VACCI NE (#1) [facility] Start: 01-13-2005 POLIO (1 of 3 - 4-do se series) POLIO (1 of 3 - 4-dose series) [facility] Start: 2004 HEPATITIS B (1 of 3 - 3-dose series) HEPATITIS B (1 of 3 - 3-dose series) [facility] Immunizations Immunization Date Immunization Notes Care Provider Fa cility 04-19-2022 HPV, unspecified formulation Sofia SAM [facility] [place] 04-19-2022 influenza virus vaccine, unspecified formulation Sofia [email or web address] [facility] [place] 04-19-2022 meningococcal ACWY vaccine, unspecified formulation [employer] [facility] [place] 07-18-2017 diphtheria, tetanus toxoids and acellular pertussis vaccine Timi KOENIG [facility] [place] Comment on above: Result Comment: tommy mcintosh 07-18-2017 HPV, unspecified formulation Timi KOENIG [facility] [place] 07-18-2017 meningococcal ACWY vaccine, unspecified formulation Timi KOENIG [facility] [place] 07-18-2017 tetanus and diphther ia toxoids, adsorbed, preservative free, for adult use (2 Lf of tetanus toxoid and 2 Lf of diphtheria toxoid) Timi KOENIG [facility] [place] Comment on above: Result Comment: [10/03 Unchart] error 07-18-2017 tetanus toxoid, reduced diphtheria toxoid, and acellular pertussis vaccine, adsorbed Lizeth Arevalo [facility] [place] 09-14-2010 hepatitis A vaccine, adult dosage Timi KOENIG [facility] [place] 07-14-2009 diphtheria, tetanus toxoids and acellular pertussis vaccine Lizeth Arevalo [facility] [place] 07-14-2009 poliovirus vaccine, unspecified formulation Timi KOENIG [facility] [place] 07-14-2009 tetanus toxoid, reduced diphtheria toxoid, and acellular pertussis vaccine, adsorbed Timi KOENIG [facility] [place] Comment on above: Result Comment: [10/03 Unchart] error 07-14-2009 varicella virus vaccine Timi KOENIG [facility] [place] 11-13-2007 hepatitis A vaccine, adult dosage Timi KOENIG [facility] [place] 11-13-2007 measles, mumps and rubella virus vaccine Timi KOENIG [facility] [place] 02-27-2007 influenza virus vaccine, unspecified formulation Timi KOENIG [facility] [place] 05-16-2006 diphtheria, tetanus toxoids and acellular pertussis vaccine Lizeth Arevalo [facility] [place] 05-16-2006 haemophilus influenz ae type b vaccine, HbOC conjugate Timi KOENIG [facility] [place] 05-16-2006 tetanus toxoid, reduced diphtheria toxoid, and acellular pertussis vaccine, adsorbed Timi KOENIG [facility] [place] Comment on above: Result Comment: [10/03 Unchart] error 11-15-2005 measles, mumps and rubella virus vaccine Timi HINESEK [facility] [place] 11-15-2005 varicella virus vaccine Timi HINESEK [facility] [place] 08-15-2005 hepatitis B vaccine, adult dosage Timi HINESEK [facility] [place] 08-15-2005 poliovirus vaccine, unspecified formulation Timi HINESEK [facility] [place] 05-16-2005 diphtheria, tetanus toxoids and acellular pertussis vaccine Timi KOENIG [facility] [place] 05-16-2005 haemophilus influenz ae type b vaccine, HbOC conjugate Timi KOENIG [facility] [place] 05-16-2005 pneumococcal conjuga te vaccine, 13 valent Timi KOENIG [facility] [place] 05-16-2005 tetanus toxoid, reduced diphtheria toxoid, and acellular pertussis vaccine, adsorbed Timi KOENIG [facility] [place] Comment on above: Result Comment: [10/03 Unchart] error 03-15-2005 diphtheria, tetanus toxoids and acellular pertussis vaccine Timi WNEK [facility] [place] 03-15-2005 haemophilus influenz ae type b vaccine, HbOC conjugate Timi WNEK [facility] [place] 03-15-2005 pneumococcal conjuga te vaccine, 13 valent Timi WNEK [facility] [place] 03-15-2005 poliovirus vaccine, unspecified formulation Timi WNEK [facility] [place] 03-15-2005 tetanus toxoid, reduced diphtheria toxoid, and acellular pertussis vaccine, adsorbed Timi WNEK [facility] [place] Comment on above: Result Comment: [10/03 Unchart] error 01-13-2005 diphtheria, tetanus toxoids and acellular pertussis vaccine Timi WNEK [facility] [place] 01-13-2005 haemophilus influenz ae type b vaccine, HbOC conjugate Timi WNEK [facility] [place] 01-13-2005 hepatitis B vaccine, adult dosage Timi WNEK [facility] [place] 01-13-2005 pneumococcal conjuga te vaccine, 13 valent Timi WNEK [facility] [place] 01-13-2005 poliovirus vaccine, unspecified formulation Timi WNEK [facility] [place] 01-13-2005 tetanus toxoid, reduced diphtheria toxoid, and acellular pertussis vaccine, adsorbed Timi KOENIG [facility] [place] Comment on above: Result Comment: [10/03 Unchart] error 2004 hepatitis B vaccine, adult dosage Timi KOENIG [facility] [place] NEGATED: Highlighted row has not occurred!04-30-2024 influenza virus vaccine, unspecified formulation Timi KOENIG [facility] [place] NEGATED: Highlighted row has not occurred!01-04-2023 influenza virus vaccine, unspecified formulation Timi KOENIG [facility] [place] NEGATED: Highlighted row has not occurred!08-11-2020 influenza virus vaccine, unspecified formulation Timi KOENIG [facility] [place] NEGATED: Highlighted row has not occurred!08-11-2020 HPV, unspecified formulation Timi KOENIG [facility] [place] Payers Date Payer Category Payer Medicaid [employer] [id number] 2022-Present [phone] [address] [place] [address] Medicaid [id number] 2004 Unknown [id number] 2004 Unknown [id number] 2004 Unknown [id number] 2004 Unknown [id number] 2004 Unknown [id number] 2004 Unknown [id number] 2004 Unknown [id number] 2004 Unknown [id number] 2004 Unknown [id number] 1984 Unknown [id number] 1984 Unknown [id number] 1984 Unknown [id number] 1959 Unknown [id number] Social History Date Type Detail Facility Start: 09-09-2020 End: 05-01-2024 Tobacco smoking status Never smoked tobacco (finding) [facility] [place] Tobacco smoking status Never [facility] [place] Sex Assigned At Male [facility] [place] Tobacco smoking status OKIS Tobacco smoking consumption unknown [facility] Start: 2004 Sex Assigned At Not on file [facility] Functional Status Date Assessment Result Facility 05-01-2024 Functional Status N/A [facility] [place] 01-17-2024 Functional Status N/A [facility] [place] 09-13-2023 Functional Status N/A [facility] [place] 05-31-2023 Functional Status N/A [facility] [place] 04-26-2023 Functional Status N/A [facility] [place] 04-21-2023 Functional Status N/A [facility] [place] 03-15-2023 Functional Status N/A [facility] [place] 03-01-2023 Functional Status N/A [facility] [place] 02-08-2023 Functional Status N/A [facility] [place] 02-01-2023 Functional Status N/A [facility] [place] 01-25-2023 Functional Status N/A [facility] [place] 01-04-2023 Functional Status N/A [facility] [place] 12-21-2022 Functional Status N/A [facility] [place] 11-29-2022 Functional Status N/A [facility] [place] 07-27-2022 Functional Status N/A [facility] [place] 07-27-2022 Functional Status N/A [facility] 06-29-2022 Functional Status N/A [facility] [place] 06-22-2022 Functional Status N/A [facility] 05-18-2022 Functional Status N/A [facility] [place] 04-20-2022 Functional Status N/A [facility] [place] 02-18-2022 Functional Status N/A [facility] [place] 02-02-2022 Functional Status N/A [facility] [place] 01-19-2022 Functional Status N/A [facility] [place] 01-05-2022 Functional Status N/A [facility] [place] 10-20-2021 Functional Status N/A [facility] [place] Clinical Notes 08-12-2020 to 04-30-2024 Telephone Encounter - Awilda Stratton MA - 08/01/2022 9:47 AM EDTLaboratoryLaboratoryLaboratoryLaboratoryLaboratoryLaboratoryLaboratoryLaborat oryLaboratoryLaboratoryRadiologyLaboratoryLaboratory Note Date & Type Note Facility 04-30-2024 Hospital Discharg e instructions Patient Education 04/30/2024 15:36:06 BMI for Adults BMI for Adults Body mass index (BMI) is a number found using a person's weight and height. BMI can help tell how much of a person's weight is made up of fat. BMI does not measure body fat directly. It is used instead of tests that directly measure body fat, which can be difficult and expensive. What are BMI measurements used for? BMI is useful to: Find out if your weight puts you at higher risk for medical problems. Help recommend changes, such as in diet and exercise. This can help you reach a healthy weight. BMI screening can be done again to see if these changes are working. How is BMI calculated? Your height and weight are measured. The BMI is found from those numbers. This can be done with U.S. or metric measurements. Note that charts and online BMI calculators are available to help you find your BMI quickly and easily without doing these calculations. To calculate your BMI in U.S. measurements: 1.Measure your weight in pounds (lb). 2.Multiply the number of pounds by 703. So, for an adult who weighs 150 lb, multiply that number by 703: 150 x 703, which equals 105,450. 3.Measure your height in inches. Then multiply that number by itself to get a measurement called inches squared. So, for an adult who is 70 inches tall, the inches squared measurement is 70 inches x 70 inches, which equals 4,900 inches squared. 4.Divide the total from step 2 (number of lb x 703) by the total from step 3 (inches squared): 105,450 4,900 = 21.5. This is your BMI. To calculate your BMI in metric measurements: 1.Measure your weight in kilograms (kg). For this example, the weight is 70 kg. 2.Measure your height in meters (m). Then multiply that number by itself to get a measurement called meters squared. So, for an adult who is 1.75 m tall, the meters squared measurement is 1.75 m x 1.75 m, which equals 3.1 meters squared. 3.Divide the number of kilograms (your weight) by the meters squared number. In this example: 70 3.1 = 22.6. This is your BMI. What do the results mean? BMI charts are used to see if you are underweight, normal weight, overweight, or obese. The following guidelines will be used: Underweight: BMI less than 18.5. Normal weight: BMI between 18.5 and 24.9. Overweight: BMI between 25 and 29.9. Obese: BMI of 30 or above. BMI is a tool and cannot diagnose a condition. Talk with your health care provider about what your BMI means for you. Keep these notes in mind: Weight includes fat and muscle. Someone with a muscular build, such as an athlete, may have a BMI that is higher than 24.9. In cases like these, BMI is not a correct measure of body fat. If you have a BMI of 25 or higher, your provider may need to do more testing to find out if excess body fat is the cause. BMI is measured the same way for males and females. Females usually have more body fat than males of the same height and weight. Where to find more information For more information about BMI, including tools to quickly find your BMI, go to: Centers for Disease Control and Prevention: cdc.gov [place] [employer]: heart.org National Heart, Lung, and Blood [place]: nhlbi.nih.gov This information is not intended to replace advice given to you by your health care provider. Make sure you discuss any questions you have with your health care provider. Document Revised: 12/22/2022 Document Reviewed: 12/15/2022 [employer] Patient Education 2023 C-sam. Follow Up Care 01/17/2024 15:40:07 With:LIBERTY SMITH, Timi Mukherjee, DALIA Address: [address] [place] [address]. [facility] [address]- When:Within 3 Month(s) Comments:recheck CHITO [facility] [place] 04-30-2024 Note Patient Education Nutrition BMI for Adults Body mass index (BMI) is a number found using a person's weight and height. BMI can help tell how much of a person's weight is made up of fat. BMI does not measure body fat directly. It is used instead of tests that directly measure body fat, which can be difficult and expensive. What are BMI measurements used for? BMI is useful to: ??? Find out if your weight puts you at higher risk for medical problems. ??? Help recommend changes, such as in diet and exercise. This can help you reach a healthy weight. BMI screening can be done again to see if these changes are working. How is BMI calculated? Your height and weight are measured. The BMI is found from those numbers. This can be done with U.S. or metric measurements. Note that charts and online BMI calculators are available to help you find your BMI quickly and easily without doing these calculations. To calculate your BMI in U.S. measurements: 1. Measure your weight in pounds (lb). 2. Multiply the number of pounds by 703. ??? So, for an adult who weighs 150 lb, multiply that number by 703: 150 x 703, which equals 105,450. 3. Measure your height in inches. Then multiply that number by itself to get a measurement called inches squared. ??? So, for an adult who is 70 inches tall, the inches squared measurement is 70 inches x 70 inches, which equals 4,900 inches squared. 4. Divide the total from step 2 (number of lb x 703) by the total from step 3 (inches squared): 105,450 ? 4,900 = 21.5. This is your BMI. To calculate your BMI in metric measurements: 1. Measure your weight in kilograms (kg). ??? For this example, the weight is 70 kg. 2. Measure your height in meters (m). Then multiply that number by itself to get a measurement called meters squared. ??? So, for an adult who is 1.75 m tall, the meters squared measurement is 1.75 m x 1.75 m, which equals 3.1 meters squared. 3. Divide the number of kilograms (your weight) by the meters squared number. In this example: 70 ? 3.1 = 22.6. This is your BMI. What do the results mean? BMI charts are used to see if you are underweight, normal weight, overweight, or obese. The following guidelines will be used: ??? Underweight: BMI less than 18.5. ??? Normal weight: BMI between 18.5 and 24.9. ??? Overweight: BMI between 25 and 29.9. ??? Obese: BMI of 30 or above. BMI is a tool and cannot diagnose a condition. Talk with your health care provider about what your BMI means for you. Keep these notes in mind: ??? Weight includes fat and muscle. Someone with a muscular build, such as an athlete, may have a BMI that is higher than 24.9. In cases like these, BMI is not a correct measure of body fat. ??? If you have a BMI of 25 or higher, your provider may need to do more testing to find out if excess body fat is the cause. ??? BMI is measured the same way for males and females. Females usually have more body fat than males of the same height and weight. Where to find more information For more information about BMI, including tools to quickly find your BMI, go to: ??? Centers for Disease Control and Prevention: cdc.gov ??? [place] [employer]: heart.org ??? National Heart, Lung, and Blood [place]: nhlbi.nih.gov This information is not intended to replace advice given to you by your health care provider. Make sure you discuss any questions you have with your health care provider. Document Revised: 12/22/2022 Document Reviewed: 12/15/2022 [employer] Patient Education ? [address] [employer] [facility] 01-17-2024 Hospital Discharg e instructions Follow Up Care 01/17/2024 13:19:23 With:Timi KOENIG MD, PED Address: [address] [place] [address] [place] [address]- When:Within 1 Month(s) Comments:recheck ADHD [facility] [place] 09-05-2023 Hospital Discharg e instructions Follow Up Care 09/05/2023 13:45:04 With:Timi KOENIG MD, PED Address: [address] [place] [id number]- When:Within 3 Month(s) Comments:recheck ADHD [facility] [place] 04-26-2023 [facility] Discharg e instructions Patient Education 04/26/2023 14:28:28 [...] Medicines to relieve symptoms. These can include [id number] medicine for pain and fever, medicines for cough or congestion, and medicines to relieve diarrhea. Antiviral medicines. These medicines are available only for certain types of viruses. Some viral illnesses can be prevented with vaccinations. A common example is the flu shot. Follow these instructions at home: Medicines Take lenj-kot-bfiyzgt and prescription medicines only as told by [...] and water are not available, use hand check grader. Avoid touching your nose, eyes, and mouth, [...] provider. Document Revised: 08/17/2020 Document Reviewed: 02/11/2020 [employer] Patient Education 2022 [employer] 04/26/2023 14:28:25 Viral Respiratory Infection Viral [...] at home: Managing pain and congestion Take cdvt-niu-evrdskf and prescription medicines only as told by [...] water are not available, use alcohol-based hand check grader. ?Cover your mouth when you cough. Cover [...] provider. Document Revised: 07/08/2021 Document Reviewed: 07/08/2021 [employer] Patient Education 2022 C-sam. Follow Up Care 04/26/2023 08:11:38 With:Confirm appointment as scheduled. Address: When: Unknown [facility] [place] 04-21-2023 Hospital Discharg e instructions Patient Education [...] infection. Follow these instructions at home: Give abwn-gzu-lykyhud and prescription medicines only as told by [...] provider. Document Revised: 07/12/2021 Document Reviewed: 07/12/2021 [employer] Patient Education 2022 C-sam. 04/21/2023 14:39:36 Viral Illness, Pediatric Viral Illness, [...] happen at home, at school, or at children counselor. Your child may get a virus by: [...] Your child's health care provider may suggest jnie-gzr-jehuoid medicines to relieve symptoms. A viral illness [...] Follow these instructions at home: Medicines Give lwvb-lxs-rmdfqep and prescription medicines only as told by your child's health care provider. Cold and flu medicines are usually not needed. If your child has a fever, ask the health care provider what vojz-baa-eukctvl medicine to use and what amount, or [...] available, he or she should use hand check grader. Teach your child to avoid touching his [...] sore throat, cough, diarrhea, or rash. Give sgtv-tgs-asquoka and prescription medicines only as told by your child's health care provider. Cold and flu medicines are usually not needed. If your child has a fever, ask the health care provider what llre-ioc-cfonqkn medicine to use and what amount to [...] provider. Document Revised: 08/17/2020 Document Reviewed: 02/11/2020 [employer] Patient Education 2022 C[employer]sam. Follow Up Care 04/21/2023 08:50:29 With:[facility] Address: When:7 to 10 days Comments:For a recheck viral illness [facility] [place] 03-01-2023 Hospital Discharg e instructions Follow Up Care 03/01/2023 14:23:41 With:Timi KOENIG MD, PED Address: [address] [place] [address]- When:Within 3 Month(s) Comments:recheck ADHD [facility] [place] 02-01-2023 Hospital Discharg e instructions Follow Up Care 02/01/2023 10:58:09 With:Timi KOENIG MD, PED Address: [address] [place] [address]- When:Within 2 Week(s) Comments:recheck bronchitis/sinusitis [facility] [place] 01-25-2023 Hospital Discharg e instructions Follow Up Care 01/25/2023 11:10:43 With:Timi KOENIG MD, PED Address: [address] [facility] [address]- When:Within 1 Week(s) Comments:recheck bronchitis [facility] [place] 01-25-2023 Hospital Discharg e instructions Follow Up Care 01/25/2023 09:28:17 With:Timi KOENIG MD, PED Address: [address] [place] [address]- When:Within 1 Week(s) Comments:recheck cough [facility] [place] 01-03-2023 Hospital Discharg e instructions Follow Up Care 01/03/2023 08:56:05 With:Timi KOENIG MD, PED Address: [address] [place] [address]- When:Within 1 Week(s) Comments:recheck stomatitis [facility] [place] 12-21-2022 Hospital Discharg e instructions Follow Up Care 12/21/2022 08:12:55 With:Timi KOENIG MD, PED Address: [address] [facility] [place] [address]- When: Unknown Comments:Appointment has already been scheduled [facility] [place] 11-29-2022 Hospital Discharg e instructions Patient Education [...] provider. Document Revised: 08/23/2021 Document Reviewed: 08/23/2021 [employer] Patient Education 2022 C-sam. Follow Up Care 11/14/2022 10:40:52 With:Timi KOENIG MD, PED Address: [address] [facility] [place] [address]- When:Within 3 Month(s) Comments:recheck ADHD With:Timi KOENIG MD, PED Address: [address] [facility] [place] [address]- When:Within 12 Month(s) Comments:WC [facility] [place] 09-01-2022 Hospital Discharg e instructions Follow Up Care 09/01/2022 13:28:29 With:LIBERTY SMITH, Timi Mukherjee, DALIA Address: [place] [address]- When:Within 3 Month(s) Comments:recheck ADHD [facility] [place] 08-01-2022 Miscellaneous Notes Spoke to: Mother Confirmed appointment on: 08/02/[address] Baker To bring records: [] Yes [x] No To Fax records to: [] Yes [x] No Confirmed phone number: [phone] Location: [facility] is located in the [facility]. [address] [place] [address] Instructions: Check in is located on the 1st floor. Please check in 15 minutes before your appointment. Please use The Appointment Pass Kiosks to electronically check in for your appointment. Attendants are available to assist. After check in please report to 2nd Floor. If for any reason a reschedule or cancellation is needed please call [phone]). documented in this encounter [facility] 07-27-2022 [facility] Discharg e instructions Patient Education 07/27/2022 10:54:23 [...] per serving. Talk with a diet and nutrition aide (dietitian) if you have questions about specific [...] Bulgur wheat. Millet. Quinoa. Bran muffins. Popcorn. [place] wafer crackers. Meats and other proteins [place], kidney, and srinivasan beans. Soybeans. Split peas. [...] Cream cheese. Sour cream. Fats and oils [place]. Beverages Soft drinks. Other foods Cakes and [...] 04/03/2006 Document Revised: 02/05/2018 Document Reviewed: 02/05/2018 [employer] Patient Education 2020 [employer] Follow Up Care 07/26/2022 08:54:14 With:Nelli Vickers CNP Address: When:3 months [facility] 06-29-2022 Hospital Discharg e instructions Follow Up Care 06/29/2022 11:06:04 With:Timi KOENIG MD, PED Address: [address] [place] [address]- When: Unknown Comments:Appointment has already been scheduled [facility] [place] 06-15-2022 Hospital Discharg e instructions Follow Up Care 06/15/2022 13:22:35 With:Timi KOENIG MD, PED Address: [address] [place] [address]- When:Within 4 Week(s) Comments:recheck abd. pain/constipation [facility] [place] 05-04-2022 [facility] Discharg e instructions Follow Up Care 05/04/2022 16:23:53 With:Timi KOENIG MD, PED Address: [address] [place] [address]- When:Within 2 Week(s) Comments:recheck abd. pain With:Timi KOENIG MD, PED Address: [address] [place] [address]- When:Within 3 Month(s) Comments:recheck ADHD [facility] 04-19-2022 [facility] Discharg e instructions Follow Up Care 04/19/2022 08:17:39 With:Timi KOENIG MD, PED Address: [address] [place] [address]- When: Unknown Comments:confirm appt for ADHD recheck [facility] [place] 01-19-2022 [facility] Discharg e instructions Follow Up Care 01/19/2022 13:03:23 With:Timi KOENIG MD, PED Address: [address] [place] [address]- When: Unknown Comments:Appointment has already been scheduled [facility] [place] 01-05-2022 Hospital Discharg e instructions Follow Up Care 01/05/2022 09:19:04 With:Timi KOENIG MD, PED Address: [address] [facility] [place] [address]- When:Within 2 Week(s) Comments:recheck migraine [facility] [place] 10-20-2021 Hospital Discharg e instructions Follow Up Care 10/20/2021 16:01:49 With:Timi KOENIG MD, PED Address: [address] [place] [address]- When:Within 3 Month(s) Comments:recheck ADHD [facility] [place] 10-11-2021 Hospital Discharg e instructions Follow Up Care 10/11/2021 12:07:12 With:Timi KOENIG MD, PED Address: [address] [place] [address]- When:01/20/2022 Comments:recheck ADHD [facility] [place] 09-01-2021 Hospital Discharg e instructions Follow Up Care 09/01/2021 09:43:14 With:Timi KOENIG MD, PED Address: [address] [place] [address]- When:09/15/2021 Comments:recheck vomiting [facility] [place] 08-18-2021 Hospital Discharg e instructions Follow Up Care 08/18/2021 10:31:35 With:Timi KOENIG MD, PED Address: [address] [facility] [place] [place] [address]- When: Unknown Comments:Appointment has already been scheduled [facility] [place] 08-09-2021 Hospital Discharg e instructions Follow Up Care 08/09/2021 09:44:08 With:Timi KOENIG MD, PED Address: [address] [place] [address]. [address] [facility] [place] [address]- When: Unknown Comments:recheck constipation, abdominal pain in 2 weeks. [facility] [place] 07-28-2021 Hospital Discharg e instructions Follow Up Care 07/28/2021 09:08:59 With:Timi KOENIG MD, PED Address: [address] [place] [address]. [address] [facility] [place] [address]- When:08/11/2021 Comments:recheck sinusitis [facility] [place] 07-21-2021 Evaluation + Plan note Diagnostic Tests PendingGroup A Strep by PCR 07/21/21 Future Scheduled TestsCeliac Disease Comprehensive 08/12/20Thyroid Stimulating Hormone 08/12/20 [facility] 07-20-2021 Hospital Discharg e instructions Follow Up Care 07/20/2021 10:31:37 With:Timi KOENIG MD, PED Address: [address] [place] [address] [address]- When:07/28/2021 Comments:recheck ST [facility] [place] 07-14-2021 Hospital Discharg e instructions Follow Up Care 07/14/2021 08:18:15 With:Timi KOENIG MD, PED Address: [address] [place] [address] [address]- When:07/21/2021 Comments:recheck abd. pain/vomiting [facility] [place] 08-12-2020 Evaluation + Plan note Future Scheduled TestsCeliac Disease Comprehensive 08/12/20Thyroid Stimulating Hormone 08/12/20 [facility] [place] Evaluation + Plan note Future Appointments Appointment Date:08/24/2021 03:40:00 PM Scheduled Provider:Vanessa Stovall MD [facility] 10 Future Scheduled TestsCeliac Disease Comprehensive 08/12/20Thyroid Stimulating Hormone 08/12/20 Referrals to Other Providers Referred by: Vanessa Stovall MD [facility] [place] Evaluation + Plan note Future Appointments Appointment Date:08/24/2021 03:40:00 PM Scheduled Provider:Vanessa Stovall MD [facility]Peds OV 10 [facility] [place] Evaluation + Plan note Future Appointments Appointment Date:09/15/2021 03:40:00 PM Scheduled Provider:Timi KOENIG MD Location:[facility] Appointment Type:Peds OV 10 [facility] [place] Evaluation + Plan note Future Appointments Appointment Date:02/02/2022 04:20:00 PM Scheduled Provider:Timi KOENIG MD Location:[facility] Appointment Type:Peds OV 10 [facility] [place] Evaluation + Plan note Future Appointments Appointment Date:02/02/2022 02:40:00 PM Scheduled Provider:Timi KOENIG MD Location:[facility] [place] Appointment Type:Peds OV 10 [facility] [place] Evaluation + Plan note Future Appointments Appointment Date:05/04/2022 04:20:00 PM Scheduled Provider:Timi KOENIG MD [facility] Type:Peds OV 10 [facility] [place] Evaluation + Plan note Future Appointments Appointment Date:03/23/2022 09:20:00 AM Scheduled Provider:Timi KOENIG MD [facility] Type:Peds OV 20 Appointment Date:05/04/2022 04:20:00 PM Scheduled Provider:Timi KOENIG MD Location:[facility] Appointment Type:Peds OV 10 Future Scheduled TestsO & P Exam, Routine 02/18/22Stool Occult Blood 02/18/22Enteric Panel by PCR 02/18/22 [facility] [place] Evaluation + Plan note Future Appointments Appointment Date:05/04/2022 04:20:00 PM Scheduled Provider:Timi KOENIG MD Location:[facility] Appointment Type:Peds OV 10 Future Scheduled TestsO & P Exam, Routine 02/18/22Stool Occult Blood 02/18/22Enteric Panel by PCR 02/18/22 [facility] [place] Evaluation + Plan note Future Appointments Appointment Date:05/18/2022 01:10:00 PM Scheduled Provider:Timi KOENIG MD Location:[facility] Appointment Type:Peds OV 10 Future Scheduled TestsO & P Exam, Routine 02/18/22Stool Occult Blood 02/18/22Enteric Panel by PCR 02/18/22 [facility] Evaluation + Plan note Future Appointments Appointment Date:06/15/2022 01:00:00 PM Scheduled Provider:Timi KOENIG MD Location:[facility] Appointment Type:Peds OV 10 Appointment Date:08/17/2022 01:00:00 PM Scheduled Provider:Timi KOENIG MD Location:[facility] Appointment Type:Peds OV 10 Future Scheduled TestsO & P Exam, Routine 02/18/22Stool Occult Blood 02/18/22Enteric Panel by PCR 02/18/22 [facility] [place] Evaluation + Plan note Future Appointments Appointment Date:06/29/2022 10:40:00 AM Scheduled Provider:Timi KOENIG MD Location:[facility] Appointment Type:Peds OV 10 Appointment Date:07/20/2022 03:05:00 PM Scheduled Provider: Location:[facility] Appointment Type:Surgery FT Appointment Date:08/17/2022 01:00:00 PM Scheduled Provider:Timi KOENIG MD Location:[facility] Appointment Type:Peds OV 10 Future Scheduled TestsCalprotectin, Fecal 06/22/22IgA, Quant. 06/22/22O & P Exam, Routine 02/18/22t-Transglutaminase IgA 06/22/22Stool Occult Blood 02/18/22Enteric Panel by PCR 02/18/22CBC w/ Indices 06/22/22Comprehensive Metabolic Panel 06/22/22Thyroid Stimulating Hormone 06/22/22 [facility] Evaluation + Plan note Future Appointments Appointment Date:07/13/2022 12:30:00 PM Scheduled Provider: Location:[facility] Appointment Type:Surgery FT Appointment Date:07/27/2022 01:00:00 PM Scheduled Provider:Timi KOENIG MD Location:[facility] Appointment Type:Peds OV 10 Appointment Date:08/17/2022 01:00:00 PM Scheduled Provider:Timi KOENIG MD Location:[facility] Appointment Type:Peds OV 10 Future Scheduled TestsCalprotectin, Fecal 06/22/22IgA, Quant. 06/22/22O & P Exam, Routine 02/18/22t-Transglutaminase IgA 06/22/22Stool Occult Blood 02/18/22Enteric Panel by PCR 02/18/22CBC w/ Indices 06/22/22Comprehensive Metabolic Panel 06/22/22Thyroid Stimulating Hormone 06/22/22 [facility] [place] Evaluation + Plan note Future Appointments Appointment Date:08/17/2022 01:00:00 PM Scheduled Provider:Timi KOENIG MD Location:[facility] Appointment Type:Peds OV 10 Appointment Date:10/26/2022 01:00:00 PM Scheduled Provider:Nelli Vickers CNP Location:[facility] App[facility]ment Type:[facility] Follow Up Future Scheduled TestsCalprotectin, Fecal 06/22/22Fecal WBC Lactoferrin 07/27/22Giardia lamblia, Direct Detection EIA 07/27/22IgA, Quant. 06/22/22O & P Exam, Routine 02/18/22O & P Exam, Routine 07/27/22t-Transglutaminase IgA 06/22/22Clostridium Difficile PCR 07/27/22Stool Occult Blood 02/18/22Enteric Panel by PCR 02/18/22Enteric Panel by PCR 07/27/22CBC w/ Indices 06/22/22Comprehensive Metabolic Panel 06/22/22Thyroid Stimulating Hormone 06/22/22CT Abdomen/Pelvis w/ Contrast 07/27/22NM Gastric Emptying Study 07/27/22 [facility] [place] Evaluation + Plan note Future Appointments Appointment Date:10/26/2022 01:00:00 PM Scheduled Provider:Nelli Vickers CNP Location:[facility] Appointment Type:[facility] Follow Up Appointment Date:12/07/2022 01:00:00 PM Scheduled Provider:Timi KOENIG MD Location:[facility] Appointment Type:Peds OV 10 Future Scheduled TestsCalprotectin, Fecal 06/22/22Fecal WBC Lactoferrin 07/27/22Giardia lamblia, Direct Detection EIA 07/27/22IgA, Quant. 06/22/22O & P Exam, Routine 02/18/22O & P Exam, Routine 07/27/22t-Transglutaminase IgA 06/22/22Clostridium Difficile PCR 07/27/22Stool Occult Blood 02/18/22Enteric Panel by PCR 02/18/22Enteric Panel by PCR 07/27/22CBC w/ Indices 06/22/22Comprehensive Metabolic Panel 06/22/22Thyroid Stimulating Hormone 06/22/22 [facility] Evaluation + Plan note Future Appointments Appointment Date:03/01/2023 02:00:00 PM Scheduled Provider:Timi KOENIG MD Location:[facility] Appointment Type:Peds OV 10 Future Scheduled TestsCalprotectin, Fecal 06/22/22Fecal WBC Lactoferrin 07/27/22Giardia lamblia, Direct Detection EIA 07/27/22IgA, Quant. 06/22/22O & P Exam, Routine 02/18/22O & P Exam, Routine 07/27/22t-Transglutaminase IgA 06/22/22Clostridium Difficile PCR 07/27/22Stool Occult Blood 22Enteric Panel by PCR 22Enteric Panel by PCR 07/27/22CBC w/ Indices 06/22/22Comprehensive Metabolic Panel 06/22/22Thyroid Stimulating Hormone 06/22/22 [facility] [place] Evaluation + Plan note Future Appointments Appointment Date:12/28/2022 01:20:00 PM Scheduled Provider:Timi KOENIG MD Location:[facility] Appointment Type:Ped OV 10 Appointment Date:03/01/2023 02:00:00 PM Scheduled Provider:Timi KOENIG MD Location:[facility] Appointment Type:[facility] OV 10 Future Scheduled TestsCalprotectin, Fecal 06/22/22Fecal WBC Lactoferrin 07/27/22Giardia lamblia, Direct Detection EIA 07/27/22IgA, Quant. 06/22/22O & P Exam, Routine 02/18/22O & P Exam, Routine 07/27/22t-Transglutaminase IgA 06/22/22Clostridium Difficile PCR 07/27/22Stool Occult Blood 02/18/22Enteric Panel by PCR 22Enteric Panel by PCR 07/27/22CBC w/ Indices 06/22/22Comprehensive Metabolic Panel 06/22/22Thyroid Stimulating Hormone 06/22/22 [facility] [place] Evaluation + Plan note Future Appointments Appointment Date:02/01/2023 10:30:00 AM Scheduled Provider:Timi KOENIG MD Location:[facility] Appointment Type:Peds OV 10 Appointment Date:03/01/2023 02:00:00 PM Scheduled Provider:Timi KOENIG MD Location:[facility] Appointment Type:[facility] OV 10 Future Scheduled TestsCalprotectin, Fecal 06/22/22Fecal WBC Lactoferrin 07/27/22Giardia lamblia, Direct Detection EIA 07/27/22IgA, Quant. 06/22/22O & P Exam, Routine 02/18/22O & P Exam, Routine 07/27/22t-Transglutaminase IgA 06/22/22Clostridium Difficile PCR 07/27/22Stool Occult Blood 02/18/22Enteric Panel by PCR 02/18/22Enteric Panel by PCR 07/27/22CBC w/ Indices 06/22/22Comprehensive Metabolic Panel 06/22/22Thyroid Stimulating Hormone 06/22/22 [facility] [place] Evaluation + Plan note Future Appointments Appointment Date:02/08/2023 10:30:00 AM Scheduled Provider:Timi KOENIG MD Location:[facility] Appointment Type:Peds OV 10 Appointment Date:03/01/2023 02:00:00 PM Scheduled Provider:Timi KOENIG MD Location:[facility] Appointment Type:Peds OV 10 Future Scheduled TestsCalprotectin, Fecal 06/22/22Fecal WBC Lactoferrin 07/27/22Giardia lamblia, Direct Detection EIA 07/27/22IgA, Quant. 06/22/22O & P Exam, Routine 02/18/22O & P Exam, Routine 07/27/22t-Transglutaminase IgA 06/22/22Clostridium Difficile PCR 07/27/22Stool Occult Blood 02/18/22Enteric Panel by PCR 02/18/22Enteric Panel by PCR 07/27/22CBC w/ Indices 06/22/22Comprehensive Metabolic Panel 06/22/22Thyroid Stimulating Hormone 06/22/22 [facility] [place] Evaluation + Plan note Future Appointments Appointment Date:05/31/2023 09:40:00 AM Scheduled Provider:Timi KOENIG MD Location:[facility] Appointment Type:Peds OV 10 Future Scheduled TestsCalprotectin, Fecal 06/22/22Fecal WBC Lactoferrin 07/27/22Giardia lamblia, Direct Detection EIA 07/27/22IgA, Quant. 06/22/22O & P Exam, Routine 07/27/22t-Transglutaminase IgA 06/22/22Clostridium Difficile PCR 07/27/22Enteric Panel by PCR 07/27/22CBC w/ Indices 06/22/22Comprehensive Metabolic Panel 06/22/22Thyroid Stimulating Hormone 06/22/22 [facility] [place] Evaluation + Plan note Future Appointments Appointment Date:03/22/2023 08:50:00 AM Scheduled Provider:Timi KOENIG MD Location:[facility] Appointment Type:Peds OV 10 Appointment Date:05/31/2023 09:40:00 AM Scheduled Provider:Timi KOENIG MD Location:[facility] Appointment Type:[facility] OV 10 Future Scheduled TestsCalprotectin, Fecal 06/22/22Fecal WBC Lactoferrin 07/27/22Giardia lamblia, Direct Detection EIA 07/27/22IgA, Quant. 06/22/22O & P Exam, Routine 07/27/22t-Transglutaminase IgA 06/22/22Clostridium Difficile PCR 07/27/22Enteric Panel by PCR 07/27/22CBC w/ Indices 06/22/22Comprehensive Metabolic Panel 06/22/22Thyroid Stimulating Hormone 06/22/22 [facility] [place] Evaluation + Plan note Future Appointments Appointment Date:05/01/2023 02:20:00 PM Scheduled Provider:Rosa M REDMOND Location:[facility] Appointment Type:[facility] OV 10 Appointment Date:05/31/2023 09:40:00 AM Scheduled Provider:Timi KOENIG MD Location:[facility] Appointment Type:[facility] OV 10 Future Scheduled TestsCalprotectin, Fecal 06/22/22Fecal WBC Lactoferrin 07/27/22Giardia lamblia, Direct Detection EIA 07/27/22IgA, Quant. 06/22/22O & P Exam, Routine 07/27/22t-Transglutaminase IgA 06/22/22Clostridium Difficile PCR 07/27/22Enteric Panel by PCR 07/27/22CBC w/ Indices 06/22/22Comprehensive Metabolic Panel 06/22/22Thyroid Stimulating Hormone 06/22/22 [facility] [place] Evaluation + Plan note Future Appointments Appointment Date:08/23/2023 09:50:00 AM Scheduled Provider:Timi KOENIG MD Location:[facility] Appointment Type:Peds OV 10 Future Scheduled TestsCalprotectin, Fecal 06/22/22Fecal WBC Lactoferrin 07/27/22Giardia lamblia, Direct Detection EIA 07/27/22IgA, Quant. 06/22/22O & P Exam, Routine 07/27/22t-Transglutaminase IgA 06/22/22Clostridium Difficile PCR 07/27/22Enteric Panel by PCR 07/27/22CBC w/ Indices 06/22/22Comprehensive Metabolic Panel 06/22/22Thyroid Stimulating Hormone 06/22/22 [facility] [place] Evaluation + Plan note Future Appointments Appointment Date:12/13/2023 04:10:00 PM Scheduled Provider:Timi KOENIG MD Location:[facility] Appointment Type:Peds OV 10 [facility] [place] Evaluation + Plan note Future Appointments Appointment Date:05/01/2024 04:20:00 PM Scheduled Provider:Timi KOENIG MD Location:[facility] Appointment Type:Peds OV 10 [facility] [place] Evaluation + Plan note Future Appointments Appointment Date:07/17/2024 02:00:00 PM Scheduled Provider:Timi KOENIG MD Location:[facility] Appointment Type:Peds OV 10 [facility] course Narrative No data available for this section [facility] Discharge instructions No data available for this section [facility] Progress note No data available for this section [facility] [place] Reason for referral (narrative) Referred by: Nelli Vickers CNP [facility] Summary Purpose Family History No [...] this section No Family History Records Found No data available for this section Advance Directives No Advanced Directives Records FoundNo Advanced Directives Records FoundNo Advanced Directives Records FoundNo Advanced Directives Records Found Reason for Referral Referred by: Vanessa Stovall MD Additional Source Comments (unrecognized sect ion and content) No Status Records FoundNo Status Records FoundNo Status Records FoundNo Status Records Found INFORMATION SOURCE (unrecogn ized section and content) DATE CREATED AUTHOR 02/13/2021 [facility] DATE CREATED AUTHOR AUTHOR'S ORGANIZ ATION 06/21/2022 [facility] DATE CREATED AUTHOR AUTHOR'S ORGANIZ ATION 08/02/2022 [facility] DATE CREATED AUTHOR AUTHOR'S ORGANIZ ATION 05/02/2024 [facility] Care Team (unrecognized sect ion and content) Personnel Name: Timi KOENIG MD Address: Address: [address] [place] [address]. [address] [employer] Relationship Specialty Start Date End Date Nelli Vickers CNP [address] [place] [address] Referring Family Medicine 07/29/22 Source Comments (unrecognize d section and content) In the event this informatio n is protected by the Federal Confidentiality of Alcohol and Drug Abuse Patient Records regulations: The Federal rules restrict any use of the information to criminally investigate or prosecute any alcohol or drug abuse patient.[facility] Reason for Visit (unrecogniz ed section and [...] BE BASED ON THE PRIMARY CLINICAL RECORDS. [facility]. provides no warranty or guarantee of the accuracy or completeness of information in this document.
[2024-05-05 10:59] LABS: Influenza Virus A Antigen Negative; Influenza Virus B Antigen Negative; Internal Control Within Normal Limits
[2024-05-05] MEDS: ONDANSETRON 4 MG RAPDIS TABLET SL (11:14)
[2024-05-05 11:23] LABS: Bilirubin Urine NEGATIVE (NEGATIVE); Blood Urine TRACE-L (NEGATIVE); Clarity Urine CLEAR (CLEAR); Color Urine YELLOW (YELLOW); Glucose Urine UA NEGATIVE (NEGATIVE); Ketones Urine >=80 mg/dL (NEGATIVE); Leukocyte Esterase Urine NEGATIVE (NEGATIVE); Nitrite Urine NEGATIVE (NEGATIVE); Protein Urine NEGATIVE (NEG/TRACE); Specific Gravity Urine >=1.030 (1.005-1.025); Urobilinogen Urine 0.2 EU/dL (0.2-1.0); pH Urine 5.5 (5.0-9.0)
[2024-05-05 11:26] LABS: Urine Microscopic Indicated YES
[2024-05-05 11:36] LABS: Bacteria Urine NONE SEEN #/HPF (NONE SEEN); Mucus Urine MODERATE (NONE SEEN); RBC Urine 0-2 #/HPF (0-2); Squamous Epithelial Cell Urine FEW #/LPF (NONE/RARE); WBC Urine NONE SEEN #/HPF (NONE SEEN)
[2024-05-05 11:39] LABS: Cast Seen? SEEN #/LPF (NONE SEEN); Hyaline Casts Urine RARE; Urine Culture Indicated NO
[2024-05-05 12:05] LABS: SARS-CoV-2 Ag NEGATIVE (NEGATIVE)
[2024-05-05 12:06] LABS: Internal Control Within Normal Limits
--- NOTE | 2024-05-05 17:17 | ED_ITS ---
HPI HPI - General Adult General Chief complaint: Nausea/Vomiting/Diarrhea Stated complaint: VOMITING, WEAKNESS Time Seen by Provider: 05/05/24 10:49 Source: patient Mode of arrival: walk-in History of Present Illness HPI narrative: The patient is coming to the ER with his mother for concern of nausea and vomiting for the last 2 days no significant abdominal pain no other concerns and no diarrhea No exposure to anybody with similar symptoms Related Data Home Medications ?Medication ?Instructions ?Recorded ?Confirmed cetirizine 10 mg tablet 10 mg PO DAILY 09/11/23 09/11/23 dextroamphetamine-amphetamine ER 30 mg PO QAM 09/11/23 09/11/23 30 mg 24hr capsule,extend release Previous Rx's ?Medication ?Instructions ?Recorded methocarbamol 750 mg tablet 750 mg PO TID PRN pain #20 tabs 09/11/23 ondansetron 4 mg disintegrating 4 mg PO Q8H PRN nausea and 05/05/24 tablet vomiting 3 days #10 tabs Allergies Allergy/AdvReac Type Severity Reaction Status Date / Time rocephin AdvReac Intermediate Uncoded 11/21/22 13:46 Opioid HPI Opioid Management Most Recent Opioid Data: Last Pain Scale 8 07/29/23 18:16 07/29/23 Review of Systems ROS Status of ROS 10 or more systems reviewed and unremark able except as noted in history and below Exam Narrative Exam Narrative: Nurses notes and vital signs reviewed and patient is not hypoxic. General: Well-appearing and in no apparent distress. Skin: Warm, dry, no pallor noted. No rash. Head: Normocephalic, atraumatic. Neck: Supple, non-tender. Eye: Pupils are equal, round and EOMI. No scleral icterus. Ears, Nose, Mouth, and Throat: TM are clear, no nasal mucosal hypertrophy. Oral mucosa is moist, no posterior oropharynx erythema, uvula is mid-line Cardiovascular: Regular Rate and Rhythm without murmur, gallop or rub. Respiratory: No accessory muscle use or respiratory distress. Lungs are clear to auscultation, no wheezing, rales or rhonchi Chest Wall: no tenderness Back: No midline thoracic or lumbar vertebral tenderness. No CVA tenderness Musculoskeletal: normal ROM, no calf or popliteal tenderness, no lower extremity edema/swelling GI: Abdomen is soft, non-distended. Normal bowel sounds. No masses appreciated. No tenderness to palpation. No rebound, guarding, or rigidity noted. Neurological: A&O x4. No cranial nerve dysfunction observed. No truncal ataxia. Moves all extremities. Sensation intact. Psychiatric: Cooperative and interactive. Normal mood and affect. Constitutional Vital Signs, click to edit/add: Last Vital Signs Temp 97.4 F L 05/05/24 10:20 Pulse 67 05/05/24 10:20 Resp 18 05/05/24 10:20 BP 126/64 05/05/24 10:20 Pulse Ox 100 05/05/24 10:20 O2 Del Method Room Air 05/05/24 10:20 Course Vital Signs Vital signs: Vital Signs Temperature 97.4 F L 05/05/24 10:20 Pulse Rate 05/05/24 10:20 Respiratory Rate 18 05/05/24 10:20 Blood Pressure 126/64 05/05/24 10:20 Pulse Oximetry 100 05/05/24 10:20 Oxygen Delivery Method Room Air 05/05/24 10:20 Temperature 97.4 F L 05/05/24 10:20 Pulse Rate 05/05/24 10:20 Respiratory Rate 05/05/24 10:20 Blood Pressure 126/64 05/05/24 10:20 Pulse Oximetry 100 05/05/24 10:20 Oxygen Delivery Method Room Air 05/05/24 10:20 Medical Decision Making MDM Narrative Medical decision making narrative: COVID and flu test are negative and the urine showed that the patient have some ketones Was provided with Zofran in the ER after which she was tolerating p.o. intake adequately Just continue hydration he was provided with Zofran to go home The patient is to follow up with primary care physician in next 2-3 days or to return to the emergency department should any of the signs or symptoms worsen or new symptoms develop. The patient agrees with the following Diagnosis and Treatment plan and the patient will be discharged home. Lab Data Labs: Lab Results 05/05/24 Range/Units 10:27 Urine Color Yellow (YELLOW) Urine Clarity Clear (CLEAR) Urine pH 5.5 (5.0-9.0) Ur Specific [place] >=1.030 A (1.005-1.025) Urine Protein Negative (NEG/TRACE) mg/dL Urine Glucose (UA) Negative (NEGATIVE) mg/dL Urine Ketones >=80 A (NEGATIVE) mg/dL Urine Occult Blood Trace-l (NEGATIVE) Urine Nitrite Negative (NEGATIVE) Urine Bilirubin Negative (NEGATIVE) Urine Urobilinogen 0.2 (0.2-1.0) EU/dL Ur Leukocyte Esterase Negative (NEGATIVE) Urine RBC 0-2 (0-2) #/HPF Urine WBC None seen (NONE SEEN) #/HPF Ur Squamous Epith Cells Few A (NONE/RARE) #/LPF Urine Bacteria None seen (NONE SEEN) #/HPF Urine Casts Seen A (NONE SEEN) #/LPF Hyaline Casts Rare Urine Mucus Moderate A (NONE SEEN) Ur Culture Indicated? No Influenza Type A Ag Negative Influenza Type B Ag Negative SARS-CoV-2 Ag (CV2AG) Negative (NEGATIVE) Discharge Plan Discharge Chief Complaint: Nausea/Vomiting/Diarrhea Clinical Impression: Gastroenteritis Patient Disposition: Home, Self-Care Time of Disposition Decision: 12:23 Condition: Good Mode of Transportation: Private Vehicle Prescriptions / Home Meds: New ondansetron 4 mg tablet,disintegrating 4 mg PO Q8H PRN (Reason: nausea and vomiting) 3 Days Qty: 10 0RF Discontinued naproxen sodium 550 mg tablet 550 mg PO BID PRN (Reason: pain) Qty: 10 0RF methylprednisolone [Medrol (Siddhartha)] 4 mg tablets,dose pack See Rx Instructions .ROUTE .COMPLEX Qty: 21 0RF Rx Instructions: Taper as directed No Action cetirizine 10 mg tablet 10 mg PO DAILY dextroamphetamine-amphetamine 30 mg capsule,extended release 24hr 30 mg PO QAM methocarbamol 750 mg tablet 750 mg PO TID PRN (Reason: pain) Qty: 20 0RF Print Language: Icelandic Instructions: Acute Nausea and Vomiting (DC) Referrals: KIRSTIE KOENIG [Primary Care Provider] - 1 week Discharge Date/Time: 05/05/24 12:31
== END 2024-05-05 12:31 | disposition home or self-care (01) ==
PROVIDERS: Emergency Provider Emergency Medicine; PCP Pediatrics
DX: K52.9 Noninfective gastroenteritis and colitis, unspecified (principal)
CPT/HCPCS: 80053; 81001; 87804; 87811; 99283; Q0162

== ENCOUNTER 2024-11-09 12:25 | Emergency (ER) | payer OTHER, SELFPAY ==
[2024-11-09] VITALS (18 sets, daily range): BP systolic 101–115; BP diastolic 45–71; PULSE 70; TEMP 36.4; O2SAT 96–100; BMI 22.6
--- OUTSIDE RECORDS SUMMARY | 2024-11-09 12:34 | XMS_ITS | CCD ---
Author Organization [facility] Care Team Providers Care Iron Miner Name Role Phone Timi KOENIG Primary Care Physician FLORAEK, DR TIMI Mukherjee Primary Care Unavailable SALIMA, SREE Admitting Unavailable SALIMA, SREE Attending Unavailable SALIMA, SREE Consulting Unavailable WNEK, DR TIMI Mukherjee Admitting Unavailable FLORAEK, DR TIMI Mukherjee Attending Unavailable FLORAEK, DR TIMI Mukherjee Primary Care Unavailable FLORAEK, DR TIMI Mukherjee Consulting Unavailable BOSTON, DR DANETTE Moffett Consulting Unavailable FLORAEK, DR TIMI Mukherjee Primary Care Unavailable ALEX, DR SONAL Mukherjee Admitting Unavailable ALEX, DR SONAL Mukherjee Attending Unavailable ALEX, DR SONAL Mukherjee Consulting Unavailable ANNALISA ASHTON Consulting Unavailable [place] [facility], Nelli Unavailable WNEK, Timi Mukherjee Attending Unavailable [...] cefTRIAXone; Translations: [ceftriaxone] Drug Allergy Weal (disorder) [facility] [place] (1 source) cefTRIAXone Drug Allergy [address] [facility] Repository Medications Current Medications Medication Drug Class(es) Dates Sig (Normalized) Sig (Original) amoxicillin 875 mg oral tablet (2 sources) Penicillin-class Antibacterial Start: 12-14-2022 End: 12-28-2022 take 1 tablet by mouth twice daily amoxicillin 875 mg Tab 875 mg = 1 tab(s), Oral, BID, X 14 day(s), # 28 tab(s), Refills(s) 0, Pharmacy: [facility]acy #[id number], 168, cm, 12/14/22 10:01:00 EDT, Height/Length Dosing, 59.4, kg, 12/14/22 10:01:00 EDT, Weight Dosing Start Date: 12/14/22 Stop Date: 12/28/22 Status: Ordered Start: 07-28-2021 End: 08-11-2021 take 1 tablet by mouth twice daily amoxicillin 875 mg Tab 875 mg = 1 tab(s), Oral, BID, X 14 day(s), # 28 tab(s), Refills(s) 0, Pharmacy: [facility], 168, cm, 07/28/21 13:55:00 EDT, Height/Length Dosing, 60.7, kg, 07/28/21 13:55:00 EDT, Weight Dosing Start Date: 07/28/21 Stop Date: 08/11/21 Status: Ordered amoxicillin 875 mg / clavulanate 125 mg oral tablet (3 sources) Penicillin-class Antibacterial Start: 04-21-2023 End: 05-01-2023 Augmentin 875 mg-125 mg Tab 1 tab(s), Oral, BID for 10 day(s), 20 tab(s), Refill(s) 0, [facility]/pharmacy #[id number], 166, cm, 04/21/23 14:23:00 EST, Height/Length Dosing, 59.6, kg, 04/21/23 14:23:00 EST, Weight Dosing Start Date: 04/21/23 Stop Date: 05/01/23 Status: Ordered Start: 02-08-2023 End: 02-18-2023 take 1 tablet by mouth every twelve hours Augmentin 875 mg oral tablet = 1 tab(s), Oral, q12hr, X 10 day(s), # 20 tab(s), Refills(s) 0, Pharmacy: [facility]/pharmacy #[id number], 169, cm, 02/08/23 10:29:00 EDT, [...] for 30 day(s), 30 cap(s), Refill(s) 0, [facility]pharm[facility] #[id number], 169.5, cm, 08/10/21 8:45:00 EDT, Height/Length Dosing, 61.9, kg, 08/10/21 8:45:00 EDT, Weight Dosing Start Date: 08/11/21 Stop Date: 09/10/21 Status: Ordered Start: 07-12-2021 End: 08-11-2021 take 1 capsule by mouth once daily in the morning amphetamine-dextroamphetamine 30 mg oral capsule, extended release 30 mg, 1 cap(s), Oral, qAM for 30 day(s), 30 cap(s), Refill(s) 0, [facility], 167, cm, 06/02/21 10:13:00 EST, Height/Length Dosing, 60.7, kg, 06/02/21 10:13:00 EST, Weight Dosing Start Date: 07/12/21 Stop Date: 08/11/21 Status: Ordered 24 hr amphetamine aspartate 7.5 mg / amphetamine sulfate 7.5 mg / dextroamphetamine saccharate 7.5 mg / dextroamphetamine sulfate 7.5 mg extended release oral capsule (20 sources) Central Nervous System Stimulant Start: 09-25-2024 End: 10-25-2024 take 1 capsule by mouth once daily in the morning amphetamine-dextroamphetamine 30 mg ER Cap 30 mg = 1 cap(s), Oral, qAM, X 30 day(s), # 30 cap(s), Refills(s) 0, Pharmacy: [facility]/pharmacy #[id number], 166, cm, 09/25/24 14:11:00 EDT, Height/Length Dosing, 63.3, kg, 09/25/24 14:11:00 EDT, Weight Dosing Start Date: 09/25/24 Stop Date: 10/25/24 Status: Ordered Quantity: 30.0 Unit: cap(s) Repeat number: 1 Start: 05-01-2024 End: 05-31-2024 take 1 capsule by mouth once daily in the morning amphetamine-dextroamphetamine 30 mg ER C ap 30 mg = 1 cap(s), Oral, qAM, X 30 day(s), # 30 cap(s), Refills(s) 0, Pharmacy: [facility]/pharmacy #[id number], 169, cm, 05/01/24 14:06:00 EST, Height/Length Dosing, 63, kg, 05/01/24 14:06:00 EST, Weight Dosing Start Date: 05/01/24 Stop Date: 05/31/24 Status: Ordered Start: 01-17-2024 End: 02-16-2024 take 1 capsule by mouth once daily in the morning amphetamine-dextroamphetamine 30 mg ER C ap 30 mg = 1 cap(s), Oral, qAM, X 30 day(s), # 30 cap(s), Refills(s) 0, Pharmacy: [facility]/pharmacy #[id number], 169, cm, 01/17/24 15:32:00 EDT, Height/Length Dosing, 62.7, kg, 01/17/24 15:32:00 EDT, Weight Dosing Start Date: 01/17/24 Stop Date: 02/16/24 Status: Ordered Start: 09-13-2023 take 1 capsule by [facility] once daily in the morning amphetamine-dextroamphetamine 30 mg ER C ap 30 mg = 1 cap(s), Oral, qAM, # 30 cap(s), Refills(s) 0, Pharmacy: [facility]/pharmacy #[id number], 169, cm, 09/13/23 16:08:00 EDT, Height/Length Dosing, 59.2, kg, 09/13/23 16:08:00 EDT, Weight Dosing Start Date: 09/13/23 Status: Ordered Start: 05-31-2023 End: 06-30-2023 take 1 capsule by mouth once daily in the morning amphetamine-dextroamphetamine 30 mg ER C ap 30 mg = 1 cap(s), Oral, qAM, X 30 day(s), # 30 cap(s), Refills(s) 0, Pharmacy: [facility]/pharmacy #[id number], 166, cm, 05/31/23 9:38:00 EST, Height/Length Dosing, 61.2, kg, 05/31/23 9:38:00 EST, Weight Dosing Start Date: 05/31/23 Stop Date: 06/30/23 Status: Ordered Start: 04-04-2023 End: 05-04-2023 take 1 capsule by mouth once daily in the morning amphetamine-dextroamphetamine 30 mg ER C ap 30 mg = 1 cap(s), Oral, qAM, X 30 day(s), # 30 cap(s), Refills(s) 0, Pharmacy: [facility] #[id number], 169, cm, 03/22/23 8:58:00 EST, Height/Length Dosing, 62.4, kg, 03/22/23 8:58:00 EST, Weight Dosing Start Date: 04/04/23 Stop Date: 05/04/23 Status: Ordered Start: 03-01-2023 take 1 capsule by mo uth once daily in the morning amphetamine-dextroamphetamine 30 mg ER C ap 30 mg = 1 cap(s), Oral, qAM, # 30 cap(s), Refills(s) 0, Pharmacy: [facility]/pharm[facility] #[id number], 169, cm, 03/01/23 14:02:00 EST, Height/Length Dosing, 61, kg, 03/01/23 14:02:00 EST, Weight Dosing Start Date: 03/01/23 Status: Ordered Start: 02-01-2023 take 1 capsule by [facility] once daily in the morning amphetamine-dextroamphetamine 30 mg ER C ap 30 mg = 1 cap(s), Oral, qAM, # 30 cap(s), Refills(s) 0, Pharmacy: [facility] #[id number], 168, cm, 02/01/23 10:47:00 EDT, Height/Length Dosing, 59.4, kg, 02/01/23 10:47:00 EDT, Weight Dosing Start Date: 02/01/23 Status: Ordered Start: 01-07-2023 take 1 capsule by [facility] once daily in the morning amphetamine-dextroamphetamine 30 mg ER C ap 30 mg = 1 cap(s), Oral, qAM, # 30 cap(s), Refills(s) 0, Pharmacy: [facility]/pharmacy #[id number], 169.8, cm, 01/04/23 10:08:00 EDT, Height/Length Dosing, 59.9, kg, 01/04/23 10:08:00 EDT, Weight Dosing Start Date: 01/07/23 Status: Ordered Start: 11-29-2022 take 1 capsule by [facility] once daily in the morning amphetamine-dextroamphetamine 30 mg ER C ap 30 mg = 1 cap(s), Oral, qAM, # 30 cap(s), Refills(s) 0, Pharmacy: [facility]/pharmacy #[id number], 167, cm, 11/29/22 13:18:00 EDT, Height/Length Dosing, 57.3, kg, 11/29/22 13:18:00 EDT, Weight Dosing Start Date: 11/29/22 Status: Ordered Start: 09-01-2022 take 1 capsule by [facility] once daily in the morning amphetamine-dextroamphetamine 30 mg ER C ap 30 mg = 1 cap(s), Oral, qAM, # 30 cap(s), Refills(s) 0, Pharmacy: [facility] #[id number], 168.2, cm, 09/01/22 13:17:00 EDT, Height/Length Dosing, 60.6, kg, 09/01/22 13:17:00 EDT, Weight Dosing Start Date: 09/01/22 Status: Ordered Start: 07-27-2022 take 1 capsule by [facility] once daily in the morning amphetamine-dextroamphetamine 30 mg ER C ap 30 mg = 1 cap(s), Oral, qAM, # 30 cap(s), Refills(s) 0, Pharmacy: [facility]/pharmacy #[id number], 166, cm, 07/27/22 13:17:00 EDT, Height/Length Dosing, 60.2, kg, 07/27/22 13:17:00 EDT, Weight Dosing Start Date: 07/27/22 Status: Ordered Start: 06-29-2022 amphetamine-de xtroamphetamine 15 mg oral capsule, extended release 30 mg, 2 cap(s), Oral, qAM, 60 cap(s), Refill(s) 0, [facility] #[id number], 167.5, cm, 06/29/22 10:52:00 EDT, Height/Length Dosing, 61.2, kg, 06/29/22 10:52:00 EDT, Weight Dosing Start Date: 06/29/22 Status: Ordered Start: 06-14-2022 amphetamine-de xtroamphetamine 15 mg oral capsule, extended release 30 mg, 2 cap(s), Oral, qAM, 60 cap(s), Refill(s) 0, [facility] #[id number], 167.8, cm, 05/18/22 13:08:00 EST, Height/Length Dosing, 62.6, kg, 05/18/22 13:08:00 EST, Weight Dosing Start Date: 06/14/22 Status: Ordered Start: 05-02-2022 End: 06-30-2022 take 1 capsule by mouth once daily in the morning amphetamine-dextroamphetamine 30 mg ER C ap 30 mg = 1 cap(s), Oral, qAM, X 30 day(s), # 30 cap(s), Refills(s) 0, Pharmacy: [facility]/pharmacy #[id number], 167.8, cm, 05/18/22 13:08:00 EST, Height/Length Dosing, 62.6, kg, 05/18/22 13:08:00 EST, Weight Dosing Start Date: 05/31/22 Stop Date: 06/30/22 Status: Ordered Start: 03-31-2022 End: 04-30-2022 take 1 capsule by mouth once daily in the morning amphetamine-dextroamphetamine 30 mg ER C ap 30 mg = 1 cap(s), Oral, qAM, X 30 day(s), # 30 cap(s), Refills(s) 0, Pharmacy: [facility]acy #[id number], 165.5, cm, 03/23/22 9:07:00 EST, Height/Length Dosing, 62.9, kg, 03/23/22 9:06:00 EST, Weight Dosing Start Date: 03/31/22 Stop Date: 04/30/22 Status: Ordered Start: 01-04-2022 End: 03-02-2022 take 1 capsule by mouth once daily in the morning amphetamine-dextroamphetamine 30 mg oral capsule, extended release 30 mg, 1 cap(s), Oral, qAM for 30 day(s), 30 cap(s), Refill(s) 0, [facility] #[id number], 169, cm, 01/19/22 13:16:00 EDT, Height/Length Dosing, 62.5, kg, 01/19/22 13:16:00 EDT, Weight Dosing Start Date: 01/31/22 Stop Date: 03/02/22 Status: Ordered Start: 10-11-2021 End: 11-10-2021 take 1 capsule by mouth once daily in the morning amphetamine-dextroamphetamine 30 mg oral capsule, extended release 30 mg, 1 cap(s), Oral, qAM for 30 day(s), 30 cap(s), Refill(s) 0, [facility] #[id number], 165, cm, 09/01/21 14:22:00 EDT, Height/Length Dosing, 61.7, kg, 09/01/21 14:22:00 EDT, Weight Dosing Start Date: 10/11/21 Stop Date: 11/10/21 Status: Ordered azithromycin 250 mg oral tablet (2 sources) Macrolide Antimicrobial Start: 02-01-2023 End: 02-06-2023 azithromycin 250 mg Tab = 1 packet(s), Oral, As Directed, as directed on package labeling, X 5 day(s), # 6 tab(s), Refills(s) 0, Pharmacy: [facility] #[id number], 168, cm, 02/01/23 10:47:00 EDT, Height/Length Dosing, 59.4, kg, 02/01/23 10:47:00 EDT, Weight Dosing Start Date: 02/01/23 Stop Date: 02/06/23 Status: Ordered Start: 12-21-2022 End: 12-26-2022 azithromycin 250 mg Tab = 1 packet(s), Oral, As Directed, as directed on package labeling, X 5 day(s), # 6 tab(s), Refills(s) 0, Pharmacy: [facility]acy #[id number], 170, cm, 12/21/22 15:13:00 EDT, Height/Length Dosing, 58, kg, 12/21/22 15:13:00 EDT, Weight Dosing Start Date: 12/21/22 Stop Date: 12/26/22 Status: Ordered cetirizine hydrochloride 10 mg oral tablet (20 sources) Histamine-1 Receptor Antagonist Start: 08-01-2023 take 1 tablet by mouth once daily cetirizine 10 mg Tab 10 mg = 1 tab(s), Oral, Daily, # 30 tab(s), Refills(s) 2, [id number] 166, cm, 05/31/23 9:38:00 EST, Height/Length Dosing, 61.2, kg, 05/31/23 9:38:00 EST, Weight Dosing Start Date: 08/01/23 Status: Ordered Quantity: 30.0 Unit: tab(s) Repeat number: 3 Start: 02-12-2020 Zyrtec Oral, D aily, PRN Allergy symptoms, Refills(s) 0 Start Date: 02/12/20 Status: Ordered Start: 02-12-2020 Zyrtec Daily, Refills(s) 0 Start Date: 02/12/20 Status: Ordered ciprofloxacin 500 mg oral tablet (2 sources) Quinolone Antimicrobial Start: 06-22-2022 End: 07-02-2022 take 1 tablet by mouth twice daily Cipro 500 mg Tab 500 mg = 1 tab(s), Oral, BID, X 10 day(s), # 20 tab(s), Refills(s) 0, [id number] 167.5, cm, 06/22/22 10:49:00 EST, Height/Length Dosing, 60.1, kg, 06/22/22 10:49:00 EST, Weight Dosing Start Date: 06/22/22 Stop Date: 07/02/22 Status: Ordered dicyclomine hydrochloride 10 mg oral capsule (20 sources) Anticholinergic Start: 03-01-2023 take 1 capsule by mouth four times daily dicyclomine 10 mg Cap 10 mg = 1 cap(s), Oral, QID, # 60 cap(s), Refills(s) 1, [id number] 169, cm, 03/01/23 14:02:00 EST, Height/Length Dosing, 61, kg, 03/01/23 14:02:00 EST, Weight Dosing Start Date: 03/01/23 Status: Ordered Quantity: 60.0 Unit: cap(s) Repeat number: 2 Start: 11-29-2022 take 1 capsule by [facility] four times daily dicyclomine 10 mg Cap 10 mg = 1 cap(s), Oral, QID, # 60 cap(s), Refills(s) 1, Pharmacy: [facility] #[id number], 167, cm, 11/29/22 13:18:00 EDT, Height/Length Dosing, 57.3, kg, 11/29/22 13:18:00 EDT, Weight Dosing Start Date: 11/29/22 Status: Ordered Start: 05-18-2022 take 2 capsules by m outh four times daily as needed Bentyl 10 mg Cap 20 mg = 2 cap(s), Oral, QID, PRN Dyspepsia, # 60 cap(s), Refills(s) 0, Pharmacy: [facility] #[id number], 167.8, cm, 05/18/22 13:08:00 EST, Height/Length Dosing, 62.6, kg, 05/18/22 13:08:00 EST, Weight Dosing Start Date: 05/18/22 Status: Ordered docusate sodium 100 mg oral capsule (20 sources) Start: 06-15-2022 take 1 capsule by mouth twice daily as needed for constipation Colace 100 mg Cap 100 mg = 1 cap(s), Oral, BID, PRN for constipation, # 20 cap(s), Refills(s) 0, Pharmacy: [facility] #[id number], 167.5, cm, 06/15/22 13:04:00 EST, Height/Length Dosing, 61.4, kg, 06/15/22 13:04:00 EST, Weight Dosing Start Date: 06/15/22 Status: Ordered Quantity: 20.0 Unit: cap(s) Repeat number: 1 Indications: Constipation, unspecified; Unspecified abdominal pain; fluticasone propionate 0.05 mg/actuat metered dose nasal spray (20 sources) Corticosteroid Start: 02-06-2023 fluticasone Nasal 0.05 mg/inh [place] 2 spray(s), Nasal, Daily, 16 gram, Refill(s) 2, each nostril, [id number], 168, cm, 02/01/23 10:47:00 EDT, Height/Length Dosing, 59.4, kg, 02/01/23 10:47:00 EDT, Weight Dosing Start Date: 02/06/23 Status: Ordered Quantity: 16.0 Unit: g Repeat number: 3 Start: 02-06-2023 fluticasone Na miguelina 0.05 mg/inh [place] 2 spray(s), Nasal, Daily, 16 gram, Refill(s) 2, each nostril, [id number], 168, cm, 02/01/23 10:47:00 EDT, Height/Length Dosing, 59.4, kg, 02/01/23 10:47:00 EDT, Weight Dosing Start Date: 02/06/23 Status: Ordered Start: 11-09-2022 fluticasone Na miguelina 0.05 mg/inh [place] 2 spray(s), Nasal, Daily, 16 gram, Refill(s) 2, each nostril, [id number], 168.2, cm, 09/01/22 13:17:00 EDT, Height/Length Dosing, 60.6, kg, 09/01/22 13:17:00 EDT, Weight Dosing Start Date: 11/09/22 Status: Ordered Start: 07-27-2022 fluticasone Na miguelina 0.05 mg/inh [place] 2 spray(s), Nasal, Daily, 16 gram, Refill(s) 0, each nostril, [id number], 166, cm, 07/27/22 13:17:00 EDT, Height/Length Dosing, 60.2, kg, 07/27/22 13:17:00 EDT, Weight Dosing Start Date: 07/27/22 Status: Ordered Start: 06-29-2022 fluticasone Na miguelina 0.05 mg/inh [place] 2 spray(s), Nasal, Daily, 16 gram, Refill(s) [...] GG (6 sources) Start: 07-05-2022 End: 08-04-2022 Shiny AdsNeofonie oral capsule 1 cap(s), Oral, Daily for 30 day(s), 30 cap(s), Refill(s) 0, [id number], 167.5, cm, 06/29/22 10:52:00 EDT, Height/Length Dosing, 61.2, kg, 06/29/22 10:52:00 EDT, Weight Dosing Start Date: 07/05/22 Stop Date: 08/04/22 Status: Ordered Start: 04-20-2022 End: 05-20-2022 [facility]), Oral, Daily for 30 day(s), 30 cap(s), Refill(s) 0, [id number], 17.1, cm, 04/20/22 9:29:00 EST, Height/Length Dosing, 63, kg, 04/20/22 9:29:00 EST, Weight Dosing Start Date: 04/20/22 Stop Date: 05/20/22 Status: Ordered methocarbamol 750 mg oral tablet (5 sources) Muscle Relaxant Start: 09-13-2023 methocarbamol 750 mg Tab Refills(s) 0 Start Date: 09/13/23 Status: Ordered Repeat number: 1 methylPREDNISolone 4 mg tab dosepak (1 source) [...] Daily, # 527 gm, Refills(s) 0, Pharmacy: [id number], 169.5, cm, 08/10/21 8:45:00 EDT, Height/Length Dosing, 61.9, kg, 04/26/22 8:45:00 EDT, Weight Dosing Start Date: 08/10/21 Status: Ordered Quantity: 527.0 Unit: g Repeat number: 1 Indications: Slow transit constipation; Start: 08-10-2021 take 17 g by mouth once daily MiraLax 3350 Oral Pwdr for Recon 249 gram 17 gm, Oral, Daily, # 527 gm, Refills(s) 0, Pharmacy: [id number], 169.5, cm, 08/10/21 8:45:00 EDT, Height/Length Dosing, 61.9, kg, 08/10/21 8:45:00 EDT, Weight Dosing Start Date: 08/10/21 Status: Ordered naproxen sodium 550 mg oral tablet (17 sources) Nonsteroidal Anti-inflammatory Drug Start: 09-13-2023 naproxen sodium 5 50 mg Tab Refills(s) 0 Start Date: 09/13/23 Status: Ordered Repeat number: 1 Start: 02-07-2022 take 1 tablet by gilmer th twice daily as needed for pain naproxen 250 mg oral tablet 250 mg = 1 tab(s), Oral, BID, PRN as needed for pain, # 60 tab(s), Refills(s) 0, Pharmacy: [facility] #[id number], 165.5, cm, 02/02/22 14:50:00 EDT, Height/Length Dosing, 61.8, kg, 02/02/22 14:50:00 EDT, Weight Dosing Start Date: 02/07/22 Status: Ordered Start: 01-05-2022 take 1 tablet by gilmer th twice daily as needed for pain naproxen 250 mg oral tablet 250 mg = 1 tab(s), Oral, BID, PRN as needed for pain, # 60 tab(s), Refills(s) 0, Pharmacy: [facility] #[id number], 166, cm, 01/05/22 11:41:00 EDT, Height/Length Dosing, 61.4, kg, 01/05/22 11:41:00 EDT, Weight Dosing Start Date: 01/05/22 Status: Ordered omeprazole 20 mg Cap-DR (8 sources) Start: 02-10-2021 take 1 capsule by mouth once daily omeprazole 20 mg Cap-DR 20 mg = 1 cap(s), Oral, Daily, # 30 cap(s), Refills(s) 0, Pharmacy: [facility], 167.3, cm, 02/10/21 8:54:00 EDT, Height/Length Dosing, 56.7, kg, 02/10/21 8:54:00 EDT, Weight Dosing Start Date: 02/10/21 Status: Ordered ondansetron 4 mg disintegrating oral tablet (20 sources) Serotonin-3 Receptor Antagonist Start: 11-29-2022 take 1 tablet by mouth every eight hours ondansetron 4 mg Dis Tab 4 mg = 1 tab(s), Oral, q8hr, # 16 tab(s), Refills(s) 0, [id number] 167, cm, 11/29/22 13:18:00 EDT, Height/Length Dosing, 57.3, kg, 11/29/22 13:18:00 EDT, Weight Dosing Start Date: 11/29/22 Status: Ordered Quantity: 16.0 Unit: tab(s) Repeat number: 1 Start: 04-20-2022 take 1 tablet by gilmer th every eight hours ondansetron 4 mg Dis Tab 4 mg = 1 tab(s), Oral, q8hr, # 16 tab(s), Refills(s) 0, [id number] 17.1, cm, 04/20/22 9:29:00 EST, Height/Length Dosing, 63, kg, 04/20/22 9:29:00 EST, Weight Dosing Start Date: 04/20/22 Status: Ordered Start: 02-18-2022 End: 02-23-2022 take 1 tablet by mouth every eight hours ondansetron 4 mg Dis Tab 4 mg = 1 tab(s), Oral, q8hr, X 5 day(s), # 15 tab(s), Refills(s) 0, Pharmacy: [id number], 167, cm, 02/18/22 13:05:00 EDT, Height/Length Dosing, 62.3, kg, 02/18/22 13:05:00 EDT, Weight Dosing Start Date: 02/18/22 Stop Date: 02/23/22 Status: Ordered Start: 01-05-2022 End: 02-04-2022 take 1 tablet by mouth every eight hours as needed for nausea ondansetron 4 mg Tab 4 mg = 1 tab(s), Oral, q8hr, PRN Nausea/Vomiting, X 30 day(s), # 10 tab(s), Refills(s) 0, Pharmacy: [facility] #[id number], 166, cm, 01/05/22 11:41:00 EDT, Height/Length Dosing, 61.4, kg, 01/05/22 11:41:00 EDT, Weight Dosing Start Date: 01/05/22 Stop Date: 02/04/22 Status: Ordered Start: 06-02-2021 take 1 tablet by gilmer th every eight hours ondansetron 4 mg Dis Tab 4 mg = 1 tab(s), Oral, q8hr, # 6 tab(s), Refills(s) 0, Pharmacy: [facility], 167, cm, 06/02/21 10:13:00 EST, Height/Length Dosing, 60.7, kg, 06/02/21 10:13:00 EST, Weight Dosing Start Date: 06/02/21 Status: Ordered polyethylene glycol 3350 03028 mg powder for oral solution (5 sources) Osmotic Laxative Start: 08-10-2021 take 17 g by mouth once daily MiraLax 3350 Oral Pwdr for Recon 249 gram 17 gm, Oral, Daily, # 527 gm, Refills(s) 0, Pharmacy: [facility] #[id number], 169.5, cm, 08/10/21 8:45:00 EDT, Height/Length Dosing, 61.9, kg, 08/10/21 8:45:00 EDT, Weight Dosing Start Date: 08/10/21 Status: Ordered polyethylene glycol 3350 [id number] mg / potassium chloride 1480 mg / sodium bicarbonate 5720 mg / sodium chloride 70740 mg powder for oral solution (2 sources) Osmotic Laxative Start: 06-22-2022 NuLYTELY Romano oral powder for reconstitution See Instructions, 1 EA, Refill(s) 0, See physician instructions prior to procedure., [id number], 167.5, cm, 06/22/22 10:49:00 EST, Height/Length Dosing, 60.1, kg, 06/22/22 10:49:00 EST, Weight Dosing Start Date: 06/22/22 Status: Ordered predniSONE 50 mg oral tablet (1 source) Start: 04-21-2023 End: 04-26-2023 take 1 tablet by mouth once daily predniSONE 50 mg Tab 50 mg = 1 tab(s), Oral, Daily, X 5 day(s), # 5 tab(s), Refills(s) 0, Pharmacy: [facility] #[id number], 166, cm, 04/21/23 14:23:00 EST, Height/Length Dosing, 59.6, kg, 04/21/23 14:23:00 EST, Weight Dosing Start Date: 04/21/23 Stop Date: 04/26/23 Status: Ordered promethazine hydrochloride 12.5 mg oral tablet (20 sources) Phenothiazine Start: 09-01-2021 take 1 tablet by mouth every six hours promethazine 12.5 mg oral tablet 12.5 mg = 1 tab(s), Oral, q6hr, # 16 tab(s), Refills(s) 1, Pharmacy: [facility] #[id number], 165, cm, 09/01/21 14:22:00 EDT, Height/Length Dosing, 61.7, kg, 09/01/21 14:22:00 EDT, Weight Dosing Start Date: 09/01/21 Status: Ordered Start: 08-18-2021 take 1 tablet by gilmer th every six hours promethazine 12.5 mg oral tablet 12.5 mg = 1 tab(s), Oral, q6hr, # 16 tab(s), Refills(s) 0, [id number] 167.5, cm, 08/18/21 15:28:00 EDT, Height/Length [...] bedtime), # 30 tab(s), Refills(s) 0, Pharmacy: [id number], 165, cm, 02/17/21 15:59:00 EDT, Height/Length [...] Refills(s) 0 Start Date: 07/27/22 Status: Ordered Repeat number: 1 Start: 04-20-2022 take 1 capsule by [facility] once daily omeprazole 20 mg Cap-DR 20 mg = 1 cap(s), Oral, Daily, # 30 cap(s), Refills(s) 0, Pharmacy: [facility] #[id number], 17.1, cm, 04/20/22 9:29:00 EST, Height/Length Dosing, 63, kg, 04/20/22 9:29:00 EST, Weight Dosing Start Date: 04/20/22 Status: Ordered Start: 02-10-2021 take 1 capsule by [facility] once daily omeprazole 20 mg Cap-DR 20 mg = 1 cap(s), Oral, Daily, # 30 cap(s), Refills(s) 0, Pharmacy: [id number], 167.3, cm, 02/10/21 8:54:00 EDT, Height/Length [...] and depressed mood] 12-30-2020 Chronic Administrative/social admission (10 sources) Counseling procedure with explicit context; Translations: [...] 07-27-2022 Chronic Diseases of mouth; excluding dental (20 sources) Stomatitis; Translations: [Other forms of stomatitis] [...] unspecified] Onset: 2 05-07-2020 Episodic Noninfectious gastroenteritis (18 sources) Noninfectious enteritis; Translations: [Noninfective gastroenteritis and colitis, unspecified] Onset: 2 Episodic Nonspecific chest pain (17 sources) Chest pain; Translations: [Chest pain, unspecified] Onset: 3 01-20-2021 Episodic Other bone disease and musculoskeletal deformities (20 sources) Costal chondritis 01-20-2021 Episodic Other connective tissue disease (2 sources) Pain in unspecified upper arm; Translations: [Pain in unspecified upper arm] Onset: 5 Episodic Other connective tissue disease (2 sources) Pain in upper arm 09-25-2024 Episodic Other gastrointestinal disorders (6 sources) Acute [...] injuries and conditions due to external causes (18 sources) Injury of hand 08-29-2022 Episodic Other lower respiratory disease (14 sources) Hemoptysis; Translations: [Hemoptysis] Onset: 3 Episodic [...] age] Onset: 3 Episodic Residual codes; unclassified (2 sources) Body mass index 20-24 - normal; Translations: [Body mass index (BMI) 21.0-21.9, adult] Onset: 5 Episodic Syncope (20 sources) Syncope 01-20-2021 Episodic Unclassified (18 sources) Patient encounter status 11-29-2022 Unclassified (1 [...] pharyngitis; Translations: [Acute pharyngitis] Onset: 07-28-2021 Unclassified (20 sources) Finding of sensation of abdomen 07-27-2022 Results Test Name Value Interpretation Reference Range Facility Pediatrics Office/Clinic Not homa 10-04-2024 Pediatrics Office/Clinic Note Pediatrics Office/Clinic Note Chief Complaint Patient in office for recheck arm pain which is better. was sick for 3 days but better now The patient presents with resolution of gastrointestinal symptoms including diarrhea and vomiting after recent illness. History of Present Illness The patient is a 18-year-old male presenting with acute gastrointestinal symptoms following a recent exposure to a sick contact. Initially, the patient reported symptoms including cold sweats, cramping, diarrhea, and vomiting, which began over the weekend. His symptoms coincided with a recent illness experienced by a friend, suggesting a possible viral cause. The patient experienced vomiting on Monday at work, necessitating him to return home. By the date of the visit, the patient reported substantial improvement in symptoms, with only mild diarrhea persisting on the morning of the current day but without blood in the stool or vomit throughout the duration of the illness. The patient denies significant pain but noted bloating and mild abdominal discomfort, localized to the lower abdomen. The patient reports no history of hematemesis or hematuria. Concurrently, the patient did experience mild upper respiratory symptoms, including a stuffy nose. Review of Systems PHQ Score Initial Depression Screen Score: 0 SCORE - Gastrointestinal: Reports diarrhea and vomiting. Denies hematemesis or hematochezia. - Respiratory: Reports stuffy nose. - Genitourinary: Denies dysuria. Physical Exam Vitals & Measurements T: 36.9 ???C(Temporal Artery) HR: 72(Peripheral) RR: 24 BP: 102/64 HT: 65 in HT: 166 cm WT: 139.552 lb WT: 63.3 kg BMI: 22.97 - Respiratory- Breathing sounds were assessed with deep inhalation and exhalation, noted without abnormal findings. Assessment/Plan 1. Upper arm pain (M79.629: Pain in unspecified upper arm) Resolved. 2. Acute gastroenteritis (K52.9: Noninfective gastroenteritis and colitis, unspecified) The primary treatment recommendation is supportive care, emphasizing adequate hydration. The patient is advised to follow the BRAT diet (bananas, rice, applesauce, toast) and to avoid dairy initially, with gradual re-introduction. Recommended hydration includes fluids like Gatorade, white grape juice, water, and agusto hay, aiming to prevent dehydration and electrolyte disturbances. The patient is reminded to monitor symptoms and seek care if they worsen or fail to resolve. Considering viral gastroenteritis, specific testing or antimicrobial therapy is not indicated unless symptoms persist. 3. Acute upper respiratory infection, unspecified (J06.9) The patient is experiencing mild upper respiratory symptoms, including a stuffy nose, which are presumed to be self-resolving. Supportive management includes symptomatic relief measures, such as maintaining hydration and possibly using [id number] remedies as needed for nasal congestion. No further diagnostic testing is currently necessary, given the mild nature of symptoms and improving condition. 4. Dietary counseling (Z71.3: Dietary counseling and surveillance) 5. Exercise counseling (Z71.82: Exercise counseling) Total time spent preparing the chart, conducting of the encounter with the patient and family and time spent documenting, reviewing and ordering tests was 20 minutes Portions of this record may have been created with voice recognition artificial intelligence software, specifically BLOVES. Substitutions may have occurred due to the inherent limitations of voice recognition and artificial intelligence software. Follow-up With When Contact Information LIBERTY SMITH, Timi Mukherjee, DALIA Alvares [facility] [place] 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 Normal [facility] Ambulatory Visit Summaryon 0 10-02-2024 Ambulatory Visit Summary Ambulatory Visit Summary PIETER BRENNAN :2005 Visit Date:10/02/2024 Ambulatory Visit Instructions Your Diagnosis Upper arm pain Dietary counseling Exercise counseling Acute gastroenteritis Your Care Team Attending Physician - Timi KOENIG MD Primary Care Physician - Timi KOENIG MD This Is Your Medications List amphetamine-dextroamphetamin e (amphetamine-dextroamphetami ne 30 mg ER Cap) cetirizine (cetirizine 10 mg Tab) dicyclomine (dicyclomine 10 mg Cap) docusate (Colace 100 mg Cap) fluticasone nasal (fluticasone Nasal 0.05 mg/inh [place]) methocarbamol (methocarbamol 750 mg Tab) naproxen (naproxen sodium 550 mg Tab) omeprazole (omeprazole 20 mg Cap-DR) ondansetron (ondansetron 4 mg Dis Tab) polyethylene glycol 3350 (MiraLax 3350 Oral Pwdr for Recon 249 gram) Procedures Performed Colonoscopy (07/13/2022), EGD - Esophagogastroduodenoscopy (07/13/2022), Circumcision (2004), Myringotomy. Discharge Vitals Temperature (Temporal Artery) 36.9 ???C Heart Rate (Peripheral) 72 Respiratory Rate 24 Blood Pressure 102/64 Height 166 cm Height 65 in Weight 63.3 kg Weight 139.552 lb BMI 22.97 What to do next Scheduled Follow-Up Appointments Monday 2:50 PM EDT With: Timi KOENIG MD Where: [facility] [place] [address]- You Need to Schedule the Following Appointments Follow Up with LIBERTY SMITH, DALIA Phillips When: Comments: Appointment has already been scheduled Where: [place] [address] [place] [address]- Medications What How Much When Why Instructions Unchanged amphetamine-dextroamphetamin e (amphetamine-dextroamphetami ne 30 mg ER Cap) 1 Capsules By Mouth Once a day (in the morning) Duration: 30 Days Unchanged cetirizine (cetirizine 10 mg Tab) 1 Tablets By Mouth Every day Unchanged dicyclomine (dicyclomine 10 mg Cap) 1 Capsules By Mouth 4 times a day Unchanged docusate (Colace 100 mg Cap) 1 Capsules By Mouth 2 times a day as needed for for constipation Abdominal pain Constipation Unchanged fluticasone nasal (fluticasone Nasal 0.05 mg/ inh [place]) 2 Sprays Nasal Inhalation Every day each nostril Unchanged methocarbamol (methocarbamol 750 mg Tab) Unchanged naproxen (naproxen sodium 550 mg Tab) Unchanged omeprazole (omeprazole 20 mg Cap-DR) 30 EA, TAKE 1 CAPSULE BY MOUTH EVERY DAY Unchanged ondansetron (ondansetron 4 mg Dis Tab) 1 Tablets By Mouth Every 8 hours Unchanged polyethylene glycol 3350 (MiraLax 3350 Oral Pwdr for Recon 249 gram) 17 Gram By Mouth Every day Slow transit constipation Allergies Rocephin (Hives) Problems Ongoing - Any problem that you are currently receiving treatment for. 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 Abdominal cramping Abdominal pain Abdominal pain, lower Acute costochondritis Costochondritis Hemoptysis Infectious mononucleosis Infectious mononucleosis Injury of hand including fingers Insect bites Nausea & vomiting Nausea and vomiting Rash Stomatitis, viral Strep throat Viral gastroenteritis Watery diarrhea Patient Survey You may receive a survey via text or e-mail asking about your office visit. Please share your experience with us by completing your survey. We appreciate your feedback and thank you for choosing us for your care. [facility] Provider Letteron 10-02-2024 Provider Letter Provider Letter October 02, 2024 PIETER BRENNAN [address] [place] [address] : 2005 To Whom It May Concern, Please excuse above patient from work. Date of Illness: From: 09/30/2024 To: 10/02/2024 May Return to Work On: 10/03/2024 Sincerely, [facility] [address] [place] [address] [facility] Pediatrics Office/Clinic Not homa 09-28-2024 Pediatrics Office/Clinic Note Pediatrics Office/Clinic Note Chief Complaint Patient in office for right arm pain & bruising. The patient presents with upper arm pain and episodes of vomiting. History of Present Illness The patient is a 18-year-old male presenting with upper arm pain and vomiting. The upper arm pain began after the patient punched a punching bag on a Monday, following which he noted bruising in the area. The pain is localized to the upper arm and worsens with elevation of the arm above a certain level. The patient reports that the pain was associated with bruising, which is now diminishing, and described a slight swelling at the site without redness or warmth. He has been managing the pain with ibuprofen, resulting in some improvement. The vomiting episodes occurred on a Monday when the patient was unable to retain food, necessitating his absence from work. A recurrence on the same day occurred, prompting another day off work. He took Zofran, which he had on hand, and has experienced improvement and currently does not feel nauseous. He had a brief episode of diarrhea but denied associated symptoms such as fever, sore throat, nasal congestion, or cough. Review of Systems PHQ Score Initial Depression Screen Score: 0 SCORE - Musculoskeletal: Reports upper arm pain and bruising. Denies associated redness or warmth. - Gastrointestinal: Reports vomiting and a brief episode of diarrhea. Denies current nausea. - Respiratory: Denies cough or shortness of breath. - Constitutional: Denies fever. - Ear, Nose, and Throat: Denies sore throat, stuffy nose, or runny nose. Physical Exam Vitals & Measurements T: 36.5 ???C(Temporal Artery) HR: 80(Peripheral) RR: 12 BP: 100/72 HT: 166 cm HT: 65 in WT: 139.552 lb WT: 63.3 kg BMI: 22.97 GENERAL: The patient is well developed, well nourished, in no apparent distress. ENT: external auditory canals are normal bilaterally; right [...] bilaterally; GASTROINTESTINAL: normal bowel sounds; no masses; no tenderness; no organomegaly; no abdominal hernia; patient reports vomiting on Monday and today, but currently feels better; reports a little bit of diarrhea. EXT: bruise left upper arm, no swelling, redness. Free range of motion. Assessment/Plan Portions of this record may have been created with voice recognition artificial intelligence software, specifically BLOVES. Substitutions may have occurred due to the inherent limitations of voice recognition and artificial intelligence software. 1. Upper arm pain (M79.629: Pain in unspecified upper arm) I recommend continued rest for the affected arm and the application of ice to reduce swelling and alleviate discomfort. The patient has been advised to continue using ibuprofen as needed for pain management. Should symptoms persist or worsen with increased bruising, swelling, or any additional concerning features, a follow-up appointment in one week was advised to reassess. No further diagnostic evaluation deemed necessary at this point unless symptoms persist beyond the given timeframe. 2. Vomiting (R11.10: Vomiting, unspecified) The patient has successfully managed nausea with Zofran, which he administered himself at home and reports feeling considerably better at the time of the visit. No further treatment is indicated as vomiting has resolved. Continued monitoring of symptoms is advised, and the patient has been instructed to seek medical help if vomiting recurs or other symptoms develop. 3. Dietary counseling (Z71.3: Dietary counseling and surveillance) 4. Exercise counseling (Z71.82: Exercise counseling) 5. BMI 22.0-22.9, adult (Z68.22: Body mass index [BMI] 22.0-22.9, adult) Total time spent preparing the chart, conducting of the encounter with the patient and family and time spent documenting, reviewing and ordering tests was 20 minutes Follow-up With When Contact Information LIBERTY SMITH, Timi Mukherjee, PED In 1 week [address] 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 Normal [facility] Ambulatory Visit Summaryon 0 09-25-2024 Ambulatory Visit Summary Ambulatory Visit Summary PIETER BRENNAN :2005 Visit Date:09/25/2024 Ambulatory Visit Instructions Your Diagnosis Upper arm pain Vomiting Dietary counseling Exercise counseling BMI 22.0-22.9, adult Your Care Team Attending Physician - Timi KOENIG MD Primary Care Physician - Timi KOENIG MD This Is Your Medications List amphetamine-dextroamphetamin e (amphetamine-dextroamphetami ne 30 mg ER Cap) Contact prescribing physician if questions or concerns cetirizine (cetirizine 10 mg Tab) dicyclomine (dicyclomine 10 mg Cap) docusate (Colace 100 mg Cap) fluticasone nasal (fluticasone Nasal 0.05 mg/inh [place]) methocarbamol (methocarbamol 750 mg Tab) naproxen (naproxen sodium 550 mg Tab) omeprazole (omeprazole 20 mg Cap-DR) ondansetron (ondansetron 4 mg Dis Tab) polyethylene glycol 3350 (MiraLax 3350 Oral Pwdr for Recon 249 gram) Procedures Performed Colonoscopy (07/13/2022), EGD - Esophagogastroduodenoscopy (07/13/2022), Circumcision (2004), Myringotomy. Discharge Vitals Temperature (Temporal Artery) 36.5 ???C Heart Rate (Peripheral) 80 Respiratory Rate 12 Blood Pressure 100/72 Height 166 cm Height 65 in Weight 63.3 kg Weight 139.552 lb BMI 22.97 What to do next Scheduled Follow-Up Appointments Monday 3:50 PM EDT With: Timi KOENIG MD Where: [address] [address]- Monday 2:50 PM EDT With: Timi KOENIG MD Where: [address] [address]- You Need to Schedule the Following Appointments Follow Up with Timi KOENIG MD, PED When: In 1 week Comments: arm pain Where: [address] [facility] [place] [address]- Medications What How Much When Why Instructions Unchanged amphetamine-dextroamphetamin e (amphetamine-dextroamphetami ne 30 mg ER Cap) 1 Capsules By Mouth Once a day (in the morning) Duration: 30 Days Pickup at [facility]/pharmacy #[id number] Unchanged cetirizine (cetirizine 10 mg Tab) 1 [...] fluticasone nasal (fluticasone Nasal 0.05 mg/ inh [place]) 2 Sprays Nasal Inhalation Every day each [...] physician if questions or concerns Pharmacy Information [facility]/pharmacy #[id number]: [address], [place] [phone] Allergies Rocephin (Hives) Problems Ongoing - Any problem that you are currently receiving treatment for. 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 Abdominal cramping Abdominal pain Abdominal pain, lower Acute costochondritis Acute gastroenteritis Costochondritis Hemoptysis Infectious mononucleosis Infectious mononucleosis Injury of hand including fingers Insect bites Nausea & vomiting Nausea and vomiting Rash Stomatitis, viral Strep throat Viral gastroenteritis Watery diarrhea Patient Survey You may receive a survey via text or e-mail asking about your office visit. Please share your experience with us by completing your survey. We appreciate your feedback and thank you for choosing us for your care. [facility] Provider Letteron 09-25-2024 Provider Letter Provider Letter September 25, 2024 PIETER BRENNAN [address] [place] [address] : 2005 To Whom It May Concern, Please excuse above patient from work on 09/23/2024 & 09/25/2022 May Return to Work On:09/26/2024 Sincerely, [facility] [address] [place] [address] [facility] Ambulatory Visit Summaryon 0 08-07-2024 Ambulatory Visit Summary Ambulatory Visit Summary PIETER BRENNAN :2005 Visit Date:08/07/2024 Ambulatory Visit Instructions Your Diagnosis ADHD (attention deficit hyperactivity disorder) BMI 21.0-21.9, adult Dietary counseling Exercise counseling Your Care Team Attending Physician - Timi KOENIG MD Primary Care Physician - Timi KOENIG MD This Is Your Medications List amphetamine-dextroamphetamin e (amphetamine-dextroamphetami ne 30 mg ER Cap) Contact prescribing physician if questions or concerns cetirizine (cetirizine 10 mg Tab) dicyclomine (dicyclomine 10 mg Cap) docusate (Colace 100 mg Cap) fluticasone nasal (fluticasone Nasal 0.05 mg/inh [place]) methocarbamol (methocarbamol 750 mg Tab) naproxen (naproxen sodium 550 mg Tab) omeprazole (omeprazole 20 mg Cap-DR) ondansetron (ondansetron 4 mg Dis Tab) polyethylene glycol 3350 (MiraLax 3350 Oral Pwdr for Recon 249 gram) Procedures Performed Colonoscopy (07/13/2022), EGD - Esophagogastroduodenoscopy (07/13/2022), Circumcision (2004), Myringotomy. Discharge Vitals Temperature (Temporal Artery) 36.4 ???C Heart Rate (Peripheral) 64 Respiratory Rate 16 Blood Pressure 112/70 Height 166 cm Height 65 in Weight 62.8 kg Weight 138.45 lb BMI 22.79 What to do next Scheduled Follow-Up Appointments Monday 2:50 PM EDT With: Timi KOENIG MD Where: [facility] [address] [address]- You Need to Schedule the Following Appointments Follow Up with LIBERTY SMITH, Timi Mukherjee, PED When: In 3 months Comments: recheck ADHD Where: [address] [facility] [place] [address]- Medications What How Much When Why Instructions Changed amphetamine-dextroamphetamin e (amphetamine-dextroamphetami ne 30 mg ER Cap) 1 Capsules By Mouth Once a day (in the morning) Pickup at [facility] #[id number] Unchanged cetirizine (cetirizine 10 mg Tab) 1 [...] fluticasone nasal (fluticasone Nasal 0.05 mg/ inh [place]) 2 Sprays Nasal Inhalation Every day each [...] physician if questions or concerns Pharmacy Information [facility]/pharmacy #[id number]: [address], [place] [phone] Allergies Rocephin (Hives) Problems Ongoing - Any problem that you are currently receiving treatment for. 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 Abdominal cramping Abdominal pain Abdominal pain, lower Acute costochondritis Acute gastroenteritis Costochondritis Hemoptysis Infectious mononucleosis Infectious mononucleosis Injury of hand including fingers Insect bites Nausea & vomiting Nausea and vomiting Rash Stomatitis, viral Strep throat Viral gastroenteritis Watery diarrhea Patient Survey You may receive a survey via text or e-mail asking about your office visit. Please share your experience with us by completing your survey. We appreciate your feedback and thank you for choosing us for your care. Normal [facility] Pediatrics Office/Clinic Not homa 08-07-2024 Pediatrics Office/Clinic Note Pediatrics Office/Clinic Note Chief Complaint Patient in office for adhd med check. Needs refill History of Present Illness The patient is a 18-year-old male presenting with the need for medication management and refill for ADHD. 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 He continues to take medication daily, which he confirms has been effective in managing symptoms of ADHD without any reported issues in focus, tension, or listening. There have been no reported side effects such as headaches, stomachaches, excessive fatigue, or changes in appetite and sleep. The patient has been on Adderall, taking 30 milligrams, and states the medication has been beneficial in maintaining his ability to perform tasks at work and at home. Review of Systems PHQ Score Initial Depression Screen Score: 0 SCORE - Neurological: Denies headaches, difficulty focusing or listening, excessive fatigue. - Gastrointestinal: Denies stomachaches. - General: Denies issues with appetite, abnormal tiredness, or changes in sleep patterns. Physical Exam Vitals & Measurements T: 36.4 ???C(Temporal Artery) HR: 64(Peripheral) RR: 16 BP: 112/70 HT: 166 cm HT: 65 in WT: 62.8 kg WT: 138.45 lb BMI: 22.79 GENERAL: The patient is well developed, well nourished, height is 5'5 , weight is 138 pounds 7 ounces, 23rd percentile, BMI is 22.8, well within the normal range. , in no apparent distress. NEUROLOGIC: Normal for age; Cranial nerves: II through XII grossly intact; No concerns about focus, tension, or listening. PSYCHIATRIC: Normal mood and behavior; No trouble with headaches, stomachaches, feeling overly tired, appetite, or falling asleep. . Assessment/Plan 18-year-old male with a history of attention-deficit hyperactivity disorder presenting with a need for medication management and continuation of Adderall. The patient maintains adequate focus and functionality at work and home, indicating effective symptom management. Weight and BMI are within the normal range, suggesting stability in growth and weight management. Portions of this record may have been created with voice recognition artificial intelligence software, specifically BLOVES. Substitutions may have occurred due to the inherent limitations of voice recognition and artificial intelligence software. During the visit, we discussed the importance of maintaining adherence to medication as it has shown efficacy in symptom control for ADHD. There was an emphasis on the adherence to the medication agreement and the process for obtaining refills. Given the stability in BMI and reported well-being, no changes were made to the diet or exercise regimen at this time. Follow-up is scheduled for three months, ensuring continued observation of overall health and medication effectiveness. - Continue taking Adderall 30 mg daily as prescribed. - Maintain a balanced diet and regular physical activity. - Refill prescriptions at [facility] routinely. - Attend follow-up visit in three months. - Report any side effects from medication as soon as they occur. - Feel free to reach out with any concerns or questions before the next scheduled visit. 1. ADHD (attention deficit hyperactivity disorder) (F90.2: Attention-deficit hyperactivity disorder, combined type) Continue current dosage of Adderall 30 mg daily, with a plan for a refill. The patient has responded well to this dosage, with no significant side effects reported. Medication agreement is reviewed and will be processed for refilling at [facility]. Ordered: Current tobacco non-user [id number] 2. BMI 21.0-21.9, adult (Z68.21: Body mass index [BMI] 21.0-21.9, adult) Monitor BMI and weight status in follow-up appointments to ensure maintenance within normal range. The current BMI is within a healthy range for height. 3. Dietary counseling (Z71.3: Dietary counseling and surveillance) Encourage a balanced diet to maintain current BMI and support overall health. No new concerns addressed during this visit. 4. Exercise counseling (Z71.82: Exercise counseling) Encourage continued physical activity to aid in maintaining a healthy BMI and mental well-being. No adjustments or additional counseling needed at this time. Orders: amphetamine-dextroamphetamin e, 30 mg = 1 cap(s), Oral, qAM, # 30 cap(s), Refills(s) 0, Pharmacy: [facility]/pharmacy #[id number], 166, cm, 08/07/24 14:52:00 EDT, Height/Length Dosing, 62.8, kg, 08/07/24 14:52:00 EDT, Weight Dosing Total time spent preparing the chart, conducting of the encounter with the patient and family and time spent documenting, reviewing and ordering tests was 15 minutes Follow-up With When Contact Information LIBERTY SMITH, Timi Mukherjee, PED In 3 months [address] [place] [address]- Additional Instructions: recheck ADHD Problem List/Past Medical History Ongoing Acute adjustment disorder with anxiety ADHD (attention deficit hyperactivity disorder) Bipolar disorder, current episode mixe (more content not included)... Normal [facility] Pediatrics Office/Clinic Not homa 05-06-2024 Pediatrics Office/Clinic Note Pediatrics Office/Clinic Note Chief Complaint Patient in office for adhd med check The patient presents for medication management and routine follow-up for ADHD. History of Present Illness The patient is a 18-year-old male presenting with medication management and routine follow-up for Attention-deficit hyperactivity disorder, combined type. The patient reports taking Adderall 30 mg once daily in the morning and feels it is effective in maintaining attention and focus. The patient denies experiencing any headaches, stomachaches, or feeling overly tired. However, he reports occasional difficulty with sleep, which he attributes to screen time use rather than medication side effects. The patient acknowledges the importance of sleep for maintaining mood and focus. He attempts to maintain consistent sleep patterns but acknowledges challenges with limiting screen time before bed. The patient has also recently made dietary changes, reporting an improvement in gastrointestinal wellness. Current weight checks reveal a body mass index in the 40th percentile, indicating stable weight management. The patient is considering attending college to improve future career prospects. Review of Systems PHQ Score Initial Depression Screen Score: 0 SCORE - Neurologic: Reports occasional difficulty with sleep. Denies headaches or feeling overly tired. - Gastrointestinal: Denies stomachaches. - General: Reports no recent illnesses. Physical Exam Vitals & Measurements T: 36.4 ???C(Temporal Artery) HR: 68(Peripheral) RR: 20 BP: 110/72 HT: 67 in HT: 169 cm WT: 63 kg WT: 138.891 lb BMI: 22.06 - General- Body weight is stable with no significant changes noted. - Body Mass Index- At the 40th percentile, BMI is noted to be 22. GENERAL: The patient is well developed, well nourished, in no apparent distress. NEUROLOGIC:Normalfor age; Cranial nerves:II through XII grossly intact; PSYCHIATRIC: Normal mood and behavior. Assessment/Plan 1. ADHD (attention deficit hyperactivity disorder) (F90.2: Attention-deficit hyperactivity disorder, combined type) The patient is currently managed with Adderall 30 mg taken once daily in the morning, which he reports as effective without notable side effects. The patient will be issued a refill to ensure continuity of treatment, and he has been advised on maintaining consistent sleep patterns and reducing screen time. Weight, mood, and focus will be monitored. The next follow-up is in three months or sooner if needed. 2. BMI 21.0-21.9, adult (Z68.21: Body mass index [BMI] 21.0-21.9, adult) The BMI is stable at 22, in the normal range, and reflects recent dietary improvements. Continued monitoring of weight and dietary habits is advised. No immediate intervention is required as the current BMI is satisfactory. Total time spent preparing the chart, conducting of the encounter with the patient and family and time spent documenting, reviewing and ordering tests was 20 minutes Portions of this record may have been created with voice recognition artificial intelligence software, specifically BL[employer]. Substitutions may have occurred due to the inherent limitations of voice recognition and artificial intelligence software. Follow-up With When Contact Information LIBERTY SMITH, Timi Mukherjee, DALIA In 3 months [address] [place] 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 Normal [facility] Pediatrics Office/Clinic Not homa 01-20-2024 Pediatrics Office/Clinic [...] reports that during his last medication refill, [facility] did not have a the medication for a 1 week, so he obtain medication injection. He is on Adderall, XR 30 mg. He has 1 or 2 pills remaining.The patient prefers to fill the prescription at [facility], he will talk with them before making [...] with voice recognition artificial intelligence software, specifically [employer], [employer] and or [employer]. Substitutions may have occurred due to the inherent limitations of voice recognition and artificial intelligence software. ATTESTATION: Documentation services were performed after patient or guardian consented to allow [employer] ([employer] to record this visit. MAEGAN inventory management specialist and provider reviewed before signing. MAEGAN: Otis Sayed. Total time spent preparing the chart, conducting of the encounter with the patient and family and time spent documenting, reviewing and ordering tests was 15 minutes Follow-up With When Contact Information LIBERTY SMITH, Timi Mukherjee, PED In 1 month [address] [place] [id number]- Additional Instructions: recheck ADHD Problem List/Past Medical [...] QID, 1 refills fluticasone Nasal 0.05 mg/inh [place], 2 spray(s), Nasal, Daily, 2 refills methocarbamol 750 mg Tab MiraLax 3350 Oral Pwdr for Recon 249 gram, 17 gm, Oral, Daily naproxen sodium 550 mg Tab omeprazole 20 mg Cap-DR ondansetron 4 mg Dis Tab, 4 (more content not included)... Normal [facility] Ambulatory Visit Summaryon 1 Ambulatory Visit Summary [...] Cap) fluticasone nasal (fluticasone Nasal 0.05 mg/inh [place]) methocarbamol (methocarbamol 750 mg Tab) naproxen (naproxen [...] PM EST With: Timi KOENIG MD Where: [facility] [place] [address], [place] [address]- You Need to Schedule the Following Appointments Follow Up with Timi KOENIG MD, PED When: In 1 month Comments: recheck ADHD Where: [address] [address] [place] [address]- Medications What How Much When Why Instructions Unchanged amphetamine-dextroamphetamin e (amphetamine-dextroamphetami ne 30 mg ER Cap) 1 Capsules By Mouth Once a day (in the morning) Duration: 30 Days Pickup at [facility]/pharmacy #[id number] Unchanged cetirizine (cetirizine 10 mg Tab) 1 [...] fluticasone nasal (fluticasone Nasal 0.05 mg/ inh [place]) 2 Sprays Nasal Inhalation Every day each [...] physician if questions or concerns Pharmacy Information [facility]/pharmacy #[id number]: [address], [place] [phone] Allergies Rocephin (Hives) Problems Ongoing - Any [...] Nausea an (more content not included)... Normal [facility] Ambulatory Visit Summary Ambulatory Visit Summary PIETER [...] Cap) fluticasone nasal (fluticasone Nasal 0.05 mg/inh [place]) methocarbamol (methocarbamol 750 mg Tab) naproxen (naproxen [...] PM EST With: Timi KOENIG MD Where: [facility] [address], [place] [address]- You Need to Schedule the Following Appointments Follow Up with LIBERTY SMITH, Timi Mukherjee, PED When: In 1 month Comments: recheck ADHD Where: [address] [address] [place] [address]- Medications What How Much When Why Instructions Unchanged amphetamine-dextroamphetamin e (amphetamine-dextroamphetami ne 30 mg ER Cap) 1 Capsules By Mouth Once a day (in the morning) Duration: 30 Days Pickup at [facility]/pharm[facility] #[id number] Unchanged cetirizine (cetirizine 10 mg Tab) 1 [...] fluticasone nasal (fluticasone Nasal 0.05 mg/ inh [place]) 2 Sprays Nasal Inhalation Every day each [...] physician if questions or concerns Pharmacy Information [facility]/pharmacy #[id number]: [address], [place] [id number] [phone] Allergies Rocephin (Hives) Problems Ongoing - Any [...] Nausea an (more content not included)... Normal [facility] Deric 08-01-2022 CNPN Telephone (PGASMN) PIETER BRENNAN ([id number]) 3 M Date Time Provider Department 08/01/22 [facility] During your visit today, we recorded the following information about you: Awilda Stratton MA 08/01/2022 9:48 AM Signed Spoke to: Mother Confirmed appointment on: 08/02/[address] Baker To bring records: [] Yes [x] No To Fax records to: [] Yes [x] No Confirmed phone number: [phone] Location: [facility] is located in the [facility]. [address] [place] [address] Instructions: Check in is located on the 1st floor. Please check in 15 minutes before your appointment. Please use The Appointment Pass Kiosks to electronically check in for your appointment. Attendants are available to assist. After check in please report to 2nd Floor. If for any reason a reschedule or cancellation is needed please call [phone]). Allergies As of Date: 08/01/2022 (Not on File) Date Reviewed: Never Reviewed Reason for Visit: Appointment [186] Problem List As Of Date: 08/01/2022 (None) Encounter Status:Closed by AWILDA STRATTON on 08/01/22 Normal [facility] CHEMISTRYOrdered By: SYSTEM SYSTEM on 07-27-2022 Albumin [...] 42.9 % Normal 36.0 - 75.0 % FT HemeAutoSS Neutrophils/Leukocy chanel Auto (Bld) [Pure # fraction] 2.0 E9/L Normal 1.3 - 6.0 E9/L FT HemeAutoSS HEMATOLOGYOrdered By: Anamaria Trevino on 07-27-2022 Erythrocyte distribution width (RBC) [Ratio] 13.6 % Normal 11.5 - 14.0 % FT HemeAutoSS Hematocrit (Bld) [Volume fraction] 44.9 % Normal 36.0 - 47.0 % FT HemeAutoSS Hemoglobin (Bld) [Mass/Vol] 14.8 g/dL Normal 12.5 - 16.1 gm/dL FTMC HemeAutoSS MCH (RBC) [Entitic mass] 29.0 pg Normal 26.0 - 32.0 pg FT HemeAutoSS MCHC (RBC) [Mass/Vol] 32.9 g/dL Normal 32.0 - 36.0 gm/dL FT HemeAutoSS MCV (RBC) [Entitic vol] 88.2 fL [...] by: DANETTE MEAD Date: 2022-06-18 12:13 Normal [facility] AMYLASEon 06-16-2022 Amylase [Catalytic activity/Vol] 73 U/L Normal 25-[address] [facility] Comment on above: Performed By: #### A MY, CRP #### [facility] [address] [place] [address] Dr. Purnima Ward CRPon 06-16-2022 CRP [Mass/Vol] mg/L Normal <=1.[address] [facility] Comment on above: Performed By: #### A MY, CRP #### [facility] [address] [place] [address] Dr. Purnima Ward TSH W/ REFLEX TO FT4on 06-16 TSH 1.232 uIU/mL Normal 0.516-4.[address] [facility] Comment on above: Performed By: #### T [id number] #### [facility] [address] [place] [address] Dr. Purnima Ward Covid-19 PCR (CVDTB)on 10-15 SARS-CoV-2 (COVID-19) RNA CONRADO+probe Ql (Unsp spec) Detected Critically abnormal NOT DETECTED [facility] Comment on above: Result Comment: This test is not yet approved or cleared by the [place] FDA. When there are no FDA-approved or cleared tests available, and other criteria are met, FDA can make tests available under an emergency access mechanism called an Emergency Use Authorization (EUA). The EUA for this test is supported by the [place] of Health and Human Service's declaration that [...] used). Performed By: #### C VDTBH #### [facility] [address] [place] [address] Dr. Purnima Ward GROUP A STREP CULTUREon 10-15 S. pyogenes Ag Ql (Unsp spec) Culture Observations: NEGATIVE FOR GROUP A STREPTOCOCCUS. Normal [facility] Comment on above: Performed By: #### G RASTCX, SSCRN #### [facility] [address] [place] [address] [address] Purnima Ward STREPT SCREENon 10-27-2021 STREP SCREEN A Negative Normal NEGATIVE [facility] Comment on above: Performed By: #### G RASTCX, SSCRN #### [facility] [address] [place] [address] [address] Purnima Ward XR CHEST 1 Von [...] ANNALISA ASHTON Date: 2021-10-27 06:[address] [facility] Progress Noteon 02-12-2021 Licensed Practical Nurse Authentication Interface Message Text History of Presenting [...] and his mother regarding the prognosis and supervisor intermediates management of this e (more content not included)... Normal [facility] Vital Signs Date Time Vital Sign Value Performing Clinician Facility 05-01-2024 14:00-0500 Body temperature 97.52 [degF] Timi KOENIG [facility] [place] 05-01-2024 14:00-0500 bodymassindex -0.23 kg/m2 Timi KOENIG [facility] Comment on above: Result Comment: ^~:!ZScore Source -[facility] 05-01-2024 14:00-0500 Diastolic blood pressure 72 mm[Hg] Timi KOENIG [facility] 05-01-2024 14:00-0500 Heart rate 68 /min Timi WNEK [facility] 05-01-2024 14:00-0500 Height/Length Percentile 14.02 1 Timi WNEK [facility] Comment on above: Result Comment: ^~:!Percentile Source -[facility] 05-01-2024 14:00-0500 Height/Length Z-Score -1.08 1 Timi WNEK [facility] Comment on above: Result Comment: ^~:!ZScore [facility] 05-01-2024 14:00-0500 Respiratory rate 20 /min Timi WNEK [facility] 05-01-2024 14:00-0500 Systolic blood pressure 110 mm[Hg] Timi WNEK [facility] 05-01-2024 14:00-0500 weight -0.68 1 Timi WNEK [facility] Comment on above: Result Comment: ^~:!ZScore [facility] 05-01-2024 14:00-0500 Weight Percentile 24.79 % Timi HINESEK [facility] Comment on above: Result Comment: ^~:!Percentile Source -[facility] 01-17-2024 15:25-0400 Blood Pressure Location Timi WNEK [facility] 01-17-2024 15:25-0400 Body temperature 98.6 [degF] Timi WNEK [facility] 01-17-2024 15:25-0400 bodymassindex -0.22 kg/m2 Timi WNEK [facility] Comment on above: Result Comment: ^~:!ZScore Source [facility] 01-17-2024 15:25-0400 Diastolic blood pressure 82 mm[Hg] Timi WNEK [facility] 01-17-2024 15:25-0400 Heart rate 78 /min Timi WNEK [facility] 01-17-2024 15:25-0400 Height/Length Percentile 14.23 1 Timi WNEK [facility] Comment on above: Result Comment: ^~:!Percentile Source -[facility] 01-17-2024 15:25-0400 Height/Length Z-Score -1.07 1 Timi WNEK [facility] Comment on above: Result Comment: ^~:!ZScore [facility] 01-17-2024 15:25-0400 Respiratory rate 14 /min Timi WNEK [facility] 01-17-2024 15:25-0400 Systolic blood pressure 110 mm[Hg] Timi WNEK [facility] 01-17-2024 15:25-0400 Weight Percentile 24.97 % Timi WNEK [facility] Comment on above: Result Comment: ^~:!Percentile Source -[facility] 01-17-2024 15:25-0400 Weight Z-Score -0.68 1 Timi WNEK [facility] Comment on above: Result Comment: ^~:!ZScore [facility] 09-13-2023 16:03-0400 Body temperature 97.7 [degF] Timi WNEK [facility] 09-13-2023 16:03-0400 bodymassindex -0.63 kg/m2 [facility] Comment on above: Result Comment: ^~:!ZScore [facility] 09-13-2023 16:03-0400 Diastolic blood pressure 72 mm[Hg] Timi WNEK [facility] 09-13-2023 16:03-0400 Heart rate 68 /min Timi WNEK [facility] 09-13-2023 16:03-0400 Height/Length Percentile 14.59 1 Timi WNEK [facility] Comment on above: Result Comment: ^~:!Percentile Source -[facility] 09-13-2023 16:03-0400 Height/Length Z-Score -1.05 1 Timi WNEK [facility] Comment on above: Result Comment: ^~:!ZScore [facility] 09-13-2023 16:03-0400 Respiratory rate 24 /min Timi WNEK [facility] 09-13-2023 16:03-0400 Systolic blood pressure 128 mm[Hg] Timi WNEK [facility] 09-13-2023 16:03-0400 Weight Percentile 15.25 % Timi WNEK [facility] Comment on above: Result Comment: ^~:!Percentile Source - [place] 09-13-2023 16:03-0400 Weight Z-Score -1.03 1 Timi WNEK [facility] Comment on above: Result Comment: ^~:!ZScore [facility] 05-31-2023 09:35-0500 Body temperature 98.42 [degF] Timi WNEK [facility] 05-31-2023 09:35-0500 bodymassindex 0 kg/m2 Timi WNEK [facility] Comment on above: Result Comment: ^~:!ZScore [facility] 05-31-2023 09:35-0500 Diastolic blood pressure 68 mm[Hg] Timi HINESEK [facility] 05-31-2023 09:35-0500 Heart rate 60 /min Timi HINESEK [facility] 05-31-2023 09:35-0500 Height/Length Percentile 7.38 1 Timi HINESEK [facility] Comment on above: Result Comment: ^~:!Percentile Source [facility] 05-31-2023 09:35-0500 Height/Length Z-Score -1.45 1 Timi KOENIG [facility] Comment on above: Result Comment: ^~:!ZScore [facility] 05-31-2023 09:35-0500 Respiratory rate 16 /min Timi KOENIG [facility] 05-31-2023 09:35-0500 Systolic blood pressure 102 mm[Hg] Timi KOENIG [facility] 05-31-2023 09:35-0500 Weight Percentile 23.46 % Timi KOENIG [facility] Comment on above: Result Comment: ^~:!Percentile Source [facility] 05-31-2023 09:35-0500 Weight Z-Score -0.72 1 Timi HINESEK [facility] Comment on above: Result Comment: ^~:!ZScore [facility] 04-26-2023 13:56-0500 Blood Pressure Location Christopher Fermin [facility] 04-26-2023 13:56-0500 Body temperature 97.52 [degF] Christopher Fermin [facility] 04-26-2023 13:56-0500 bodymassindex -0.24 kg/m2 Christopher Fermin [facility] Comment on above: Result Comment: ^~:!ZScore [facility] 04-26-2023 13:56-0500 Diastolic blood pressure 64 mm[Hg] Christopher Fermin [facility] 04-26-2023 13:56-0500 Heart rate 68 /min Christopher Fermin [facility] 04-26-2023 13:56-0500 Height/Length Percentile 16.86 1 Christopher Zavalafield [facility] Comment on above: Result Comment: ^~:!Percentile [facility] 04-26-2023 13:56-0500 Height/Length Z-Score -0.96 1 Christopher Zavalafield [facility] Comment on above: Result Comment: ^~:!ZScore [facility] 04-26-2023 13:56-0500 Respiratory rate 14 /min Christopher Fermin [facility] 04-26-2023 13:56-0500 SaO2% (BldA) [Mass fraction] 99 % Christopher Fermin [facility] 04-26-2023 13:56-0500 Systolic blood pressure 92 mm[Hg] Christopher Fermin [facility] 04-26-2023 13:56-0500 Weight Percentile 25.77 % Christopher Zavalafield [facility] Comment on above: Result Comment: ^~:!Percentile Source -[facility] 04-26-2023 13:56-0500 Weight Z-Score -0.65 1 Christopher Fermin [facility] Comment on above: Result Comment: ^~:!ZScore [facility] 04-21-2023 14:17-0500 Body temperature 98.06 [degF] Rosa M FALTER [facility] 04-21-2023 14:17-0500 bodymassindex -0.19 kg/m2 Rosa M FALTER [facility] Comment on above: Result Comment: ^~:!ZScore [facility] 04-21-2023 14:17-0500 Diastolic blood pressure 82 mm[Hg] Rosa M TAMIKOTER [facility] 04-21-2023 14:17-0500 Heart rate 64 /min Rosa M FALTER [facility] 04-21-2023 14:17-0500 Height/Length Percentile 7.46 1 Rosa Mquentin MORRISONTER [facility] Comment on above: Result Comment: ^~:!Percentile Source -[facility] 04-21-2023 14:17-0500 Height/Length Z-Score -1.44 1 Rosa Mquentin MORRISONTER [facility] Comment on above: Result Comment: ^~:!ZScore [facility] 04-21-2023 14:17-0500 Respiratory rate 18 /min Rosa M FALTER [facility] 04-21-2023 14:17-0500 Systolic blood pressure 110 mm[Hg] Rosa M FALTER [facility] 04-21-2023 14:17-0500 Weight Percentile 18.57 % Rosa M CANTOR [facility] Comment on above: Result Comment: ^~:!Percentile Source -[facility] 04-21-2023 14:17-0500 Weight Z-Score -0.89 1 Rosa M CANTOR [facility] Comment on above: Result Comment: ^~:!ZScore [facility] 03-15-2023 13:55-0500 Blood Pressure Location Timi HINESEK [facility] 03-15-2023 13:55-0500 Body temperature 97.88 [degF] Timi HINESEK [facility] 03-15-2023 13:55-0500 bodymassindex -0.21 kg/m2 Timi HINESEK [facility] Comment on above: Result Comment: ^~:!ZScore [facility] 03-15-2023 13:55-0500 Diastolic blood pressure 54 mm[Hg] Timi HINESEK [facility] [place] 03-15-2023 13:55-0500 Heart rate 72 /min Timi HINESEK [facility] [place] 03-15-2023 13:55-0500 Height/Length Percentile 15.32 1 Timi HINESEK [facility] [place] Comment on above: Result Comment: ^~:!Percentile Source -[facility] [place] 03-15-2023 13:55-0500 Height/Length Z-Score -1.02 1 Timi WNEK [facility] [place] Comment on above: Result Comment: ^~:!ZScore [facility] 03-15-2023 13:55-0500 Respiratory rate 14 /min Timi WNEK [facility] [place] 03-15-2023 13:55-0500 Systolic blood pressure 86 mm[Hg] Timi HINESEK [facility] 03-15-2023 13:55-0500 weight -0.67 1 Timi WNEK [facility] [place] Comment on above: Result Comment: ^~:!ZScore [facility] 03-15-2023 13:55-0500 Weight Percentile 25.24 % Timi HINESEK [facility] [place] Comment on above: Result Comment: ^~:!Percentile [facility] 03-01-2023 13:58-0500 Body temperature 97.7 [degF] Timi HINESEK [facility] [place] 03-01-2023 13:58-0500 bodymassindex -0.25 kg/m2 Timi WNEK [facility] [place] Comment on above: Result Comment: ^~:!ZScore [facility] 03-01-2023 13:58-0500 Diastolic blood pressure 70 mm[Hg] Timi HINESEK [facility] [place] 03-01-2023 13:58-0500 Heart rate 64 /min Timi WNEK [facility] [place] 03-01-2023 13:58-0500 Height/Length Percentile 15.47 1 Timi WNEK [facility] [place] Comment on above: Result Comment: ^~:!Percentile [facility] 03-01-2023 13:58-0500 Height/Length Z-Score -1.02 1 Timi WNEK [facility] [place] Comment on above: Result Comment: ^~:!ZScore [facility] 03-01-2023 13:58-0500 Respiratory rate 12 /min Timi WNEK [facility] [place] 03-01-2023 13:58-0500 Systolic blood pressure 110 mm[Hg] Timi WNEK [facility] [place] 03-01-2023 13:58-0500 weight -0.69 1 Timi WNEK [facility] [place] Comment on above: Result Comment: ^~:!ZScore [facility] 03-01-2023 13:58-0500 Weight Percentile 24.36 % Timi WNEK [facility] [place] Comment on above: Result Comment: ^~:!Percentile Source -[facility] 02-08-2023 10:26-0400 Body temperature 97.7 [degF] Timi HINESEK [facility] [place] 02-08-2023 10:26-0400 bodymassindex -0.41 kg/m2 Timi WNEK [facility] [place] Comment on above: Result Comment: ^~:!ZScore [facility] 02-08-2023 10:26-0400 Diastolic blood pressure 70 mm[Hg] Timi WNEK [facility] [place] 02-08-2023 10:26-0400 Heart rate 60 /min Timi WNEK [facility] [place] 02-08-2023 10:26-0400 Height/Length Percentile 15.63 1 Timi WNEK [facility] [place] Comment on above: Result Comment: ^~:!Percentile Source -[facility] 02-08-2023 10:26-0400 Height/Length Z-Score -1.01 1 Timi WNEK [facility] [place] Comment on above: Result Comment: ^~:!ZScore Source -[facility] 02-08-2023 10:26-0400 Respiratory rate 16 /min Timi WNEK [facility] [place] 02-08-2023 10:26-0400 SaO2% (BldA) [Mass fraction] 98 % Timi WNEK [facility] [place] 02-08-2023 10:26-0400 Systolic blood pressure 110 mm[Hg] Timi WNEK [facility] [place] 02-08-2023 10:26-0400 weight -0.83 1 Timi WNEK [facility] [place] Comment on above: Result Comment: [facility]-08-[facility] 10:26-0400 Weight Percentile 20.40 % Timi WNEK [facility] [place] Comment on above: Result Comment: ^~:!Percentile [facility] 02-01-2023 10:41-0400 Body temperature 96.8 [degF] Timi WNEK [facility] [place] 02-01-2023 10:41-0400 bodymassindex -0.35 kg/m2 Timi WNEK [facility] [place] Comment on above: Result Comment: ^~:!ZScore [facility] 02-01-2023 10:41-0400 Diastolic blood pressure 70 mm[Hg] Timi WNEK [facility] [place] 02-01-2023 10:41-0400 Heart rate 64 /min Timi WNEK [facility] [place] 02-01-2023 10:41-0400 Height/Length Percentile 12.56 1 Timi WNEK [facility] [place] Comment on above: Result Comment: ^~:!Percentile Source -[facility] [place] 02-01-2023 10:41-0400 Height/Length Z-Score -1.15 1 Timi KOENIG [facility] Comment on above: Result Comment: ^~:!ZScore [facility] 02-01-2023 10:41-0400 Respiratory rate 12 /min Timi HINESEK [facility] [place] 02-01-2023 10:41-0400 SaO2% (BldA) [Mass fraction] 97 % Timi HINESEK [facility] 02-01-2023 10:41-0400 Systolic blood pressure 110 mm[Hg] Timi WNEK [facility] 02-01-2023 10:41-0400 weight -0.86 1 Timi HINESEK [facility] [place] Comment on above: Result Comment: ^~:!Mario Alberto [facility] 02-01-2023 10:41-0400 Weight Percentile 19.41 % Timi HINESEK [facility] [place] Comment on above: Result Comment: ^~:!Percentile Source [facility] 01-25-2023 10:43-0400 Blood Pressure Location Timi HINESEK [facility] [place] 01-25-2023 10:43-0400 Body temperature 97.7 [degF] Timi HINESEK [facility] [place] 01-25-2023 10:43-0400 bodymassindex -0.3 kg/m2 Timi WNEK [facility] [place] Comment on above: Result Comment: ^~:!ZScore [facility] 01-25-2023 10:43-0400 Diastolic blood pressure 70 mm[Hg] Timi WNEK [facility] [place] 01-25-2023 10:43-0400 Heart rate 72 /min Timi HINESEK [facility] [place] 01-25-2023 10:43-0400 Height/Length Percentile 14.04 1 Timi WNEK [facility] [place] Comment on above: Result Comment: ^~:!Percentile Source -[facility] 01-25-2023 10:43-0400 Height/Length Z-Score -1.08 1 Timi WNEK [facility] [place] Comment on above: Result Comment: ^~:!ZScore [facility] 01-25-2023 10:43-0400 Respiratory rate 16 /min Timi HINESEK [facility] 01-25-2023 10:43-0400 Systolic blood pressure 104 mm[Hg] Timi WNEK [facility] 01-25-2023 10:43-0400 weight -0.78 1 Timi HINESEK [facility] [place] Comment on above: Result Comment: [facility] 01-25-2023 10:43-0400 Weight Percentile 21.76 % Timi WNEK [facility] Comment on above: Result Comment: ^~:!Percentile Source - [place] 01-04-2023 10:03-0400 Blood Pressure Location Timi WNEK [facility] 01-04-2023 10:03-0400 Body temperature 98.24 [degF] Timi WNEK [facility] 01-04-2023 10:03-0400 bodymassindex -0.43 Timi WNEK [facility] [place] Comment on above: Result Comment: ^~:!ZScore [facility] 01-04-2023 10:03-0400 Diastolic blood pressure 56 mm[Hg] Timi WNEK [facility] [place] 01-04-2023 10:03-0400 Heart rate 76 /min Timi WNEK [facility] [place] 01-04-2023 10:03-0400 Height/Length Percentile 18.42 Timi WNEK [facility] [place] Comment on above: Result Comment: ^~:!Percentile Source - [place] 01-04-2023 10:03-0400 Height/Length Z-Score -0.90 Timi WNEK [facility] [place] Comment on above: Result Comment: ^~:!ZScore [facility] 01-04-2023 10:03-0400 Respiratory rate 16 /min Timi WNEK [facility] 01-04-2023 10:03-0400 Systolic blood pressure 90 mm[Hg] Timi WNEK [facility] [place] 01-04-2023 10:03-0400 weight -0.78 Timi WNEK [facility] [place] Comment on above: Result Comment: ^~:!ZScore Source [facility] 01-04-2023 10:03-0400 Weight Percentile 21.64 % Timi WNEK [facility] [place] Comment on above: Result Comment: ^~:!Percentile Source -[facility] [place] 12-21-2022 15:09-0400 Blood Pressure Location Timi WNEK [facility] [place] 12-21-2022 15:09-0400 Body temperature 97.88 [degF] Timi WNEK [facility] 12-21-2022 15:09-0400 bodymassindex -0.74 Timi WNEK [facility] [place] Comment on above: Result Comment: ^~:!ZScore [facility] 12-21-2022 15:09-0400 Diastolic blood pressure 64 mm[Hg] Timi WNEK [facility] 12-21-2022 15:09-0400 Heart rate 78 /min Timi WNEK [facility] 12-21-2022 15:09-0400 Height/Length Percentile 19.35 Timi WNEK [facility] Comment on above: Result Comment: ^~:!Percentile [facility] 12-21-2022 15:09-0400 Height/Length Z-Score -0.87 Timi WNEK [facility] [place] Comment on above: Result Comment: ^~:!ZScore [facility] 12-21-2022 15:09-0400 Respiratory rate 18 /min Timi WNEK [facility] 12-21-2022 15:09-0400 SaO2% (BldA) [Mass fraction] 97 % Timi WNEK [facility] 12-21-2022 15:09-0400 Systolic blood pressure 92 mm[Hg] Timi WNEK [facility] 12-21-2022 15:09-0400 weight -1.01 Timi WNEK [facility] [place] Comment on above: Result Comment: ^~:!ZScore [facility] 12-21-2022 15:09-0400 Weight Percentile 15.51 % Timi WNEK [facility] [place] Comment on above: Result Comment: ^~:!Percentile Source -[facility] 11-29-2022 13:13-0400 Blood Pressure Location Timi KOENIG [facility] [place] 11-29-2022 13:13-0400 Body temperature 98.24 [degF] Timi HINESEK [facility] [place] 11-29-2022 13:13-0400 bodymassindex -0.51 Timi HINESEK [facility] [place] Comment on above: Result Comment: ^~:!ZScore [facility] 11-29-2022 13:13-0400 Diastolic blood pressure 76 mm[Hg] Timi HINESEK [facility] [place] 11-29-2022 13:13-0400 Heart rate 72 /min Timi HINESEK [facility] [place] 11-29-2022 13:13-0400 Height/Length Percentile 10.22 Timi HINESEK [facility] [place] Comment on above: Result Comment: ^~:!Percentile Source [facility] 11-29-2022 13:13-0400 Height/Length Z-Score -1.27 Timi HINESEK [facility] [place] Comment on above: Result Comment: ^~:!ZScore [facility] 11-29-2022 13:13-0400 Respiratory rate 16 /min Timi HINESEK [facility] [place] 11-29-2022 13:13-0400 Systolic blood pressure 100 mm[Hg] Timi FLORAEK [facility] [place] 11-29-2022 13:13-0400 weight -1.08 Timi WNEK [facility] [place] Comment on above: Result Comment: ^~:!ZScore [facility] 11-29-2022 13:13-0400 Weight Percentile 13.95 % Timi WNEK [facility] [place] Comment on above: Result Comment: ^~:!Percentile Source [facility] 07-27-2022 13:12-0400 Blood Pressure Location Timi WNEK [facility] [place] 07-27-2022 13:12-0400 Body temperature 99.5 [degF] Timi WNEK [facility] [place] 07-27-2022 13:12-0400 bodymassindex 0.06 Timi WNEK [facility] [place] Comment on above: Result Comment: ^~:!ZScore [facility] 07-27-2022 13:12-0400 Diastolic blood pressure 66 mm[Hg] Timi WNEK [facility] [place] 07-27-2022 13:12-0400 Heart rate 80 /min Timi WNEK [facility] 07-27-2022 13:12-0400 Height/Length Percentile 8.57 Timi WNEK [facility] [place] Comment on above: Result Comment: ^~:!Percentile Source [facility] 07-27-2022 13:12-0400 Height/Length Z-Score -1.37 Timi WNEK [facility] [place] Comment on above: Result Comment: ^~:!ZScore [facility] 07-27-2022 13:12-0400 Respiratory rate 16 /min Timi WNEK [facility] [place] 07-27-2022 13:12-0400 Systolic blood pressure 94 mm[Hg] Timi WNEK [facility] [place] 07-27-2022 13:12-0400 weight -0.65 Timi KOENIG [facility] [place] Comment on above: Result Comment: ^~:!ZScore [facility] 07-27-2022 13:12-0400 Weight Percentile 25.89 % Timi KOENIG [facility] [place] Comment on above: Result Comment: ^~:!Percentile Source -[facility] [place] 07-27-2022 10:55-0400 Blood Pressure Location Nelli Vickers [facility] 07-27-2022 10:55-0400 Body temperature 97.7 [degF] Nelli Vickers [facility] 07-27-2022 10:55-0400 bodymassindex -0.03 Nelli Vickers [facility] Comment on above: Result Comment: ^~:!ZScore [facility] 07-27-2022 10:55-0400 Diastolic blood pressure 66 mm[Hg] Nelli Vickers [facility] 07-27-2022 10:55-0400 Heart rate 60 /min Nelli Vickers [facility] 07-27-2022 10:55-0400 Height/Length Percentile 12.21 Nelli Randallmetz [facility] Comment on above: Result Comment: ^~:!Percentile Source -[facility] [place] 07-27-2022 10:55-0400 Height/Length Z-Score -1.16 Nelli Randallmetz [facility] Comment on above: Result Comment: ^~:!ZScore Source [facility] 07-27-2022 10:55-0400 Systolic blood pressure 100 mm[Hg] Nelli Vickers [facility] 07-27-2022 10:55-0400 weight -0.60 Nelli Vickers [facility] Comment on above: Result Comment: ^~:!ZScore [facility] 07-27-2022 10:55-0400 Weight Percentile 27.37 % Nelli Vickers [facility] Comment on above: Result Comment: ^~:!Percentile Source -[facility] [place] 06-29-2022 10:47-0400 Body temperature 98.06 [degF] Timi HINESEK [facility] [place] 06-29-2022 10:47-0400 bodymassindex 0.06 Timi HINESEK [facility] [place] Comment on above: Result Comment: ^~:!ZScore [facility] 06-29-2022 10:47-0400 Diastolic blood pressure 62 mm[Hg] Timi HINESEK [facility] [place] 06-29-2022 10:47-0400 Heart rate 88 /min Timi HINESEK [facility] [place] 06-29-2022 10:47-0400 Height/Length Percentile 12.42 Timi WNEK [facility] [place] Comment on above: Result Comment: ^~:!Percentile Source [facility] 06-29-2022 10:47-0400 Height/Length Z-Score -1.15 Timi WNEK [facility] [place] Comment on above: Result Comment: ^~:!ZScore [facility] 06-29-2022 10:47-0400 Respiratory rate 22 /min Timi WNEK [facility] [place] 06-29-2022 10:47-0400 Systolic blood pressure 110 mm[Hg] Timi WNEK [facility] [place] 06-29-2022 10:47-0400 weight -0.51 Timi WNEK [facility] [place] Comment on above: Result Comment: ^~:!ZScore [facility] 06-29-2022 10:47-0400 Weight Percentile 30.38 % Timi WNEK [facility] [place] Comment on above: Result Comment: ^~:!Percentile Source [facility] 06-22-2022 10:49-0500 Diastolic blood pressure 62 mm[Hg] Wilkins SALAM [facility] 06-22-2022 10:49-0500 Mean blood pressure 74 mm[Hg] Wilkins SALAM [facility] 06-22-2022 10:49-0500 Systolic blood pressure 98 mm[Hg] Wilkins SALAM [facility] 06-22-2022 10:45-0500 Blood Pressure Location Wilkins SALAM [facility] 06-22-2022 10:45-0500 bodymassindex -0.07 Wilkins SALAM [facility] Comment on above: Result Comment: [facility] 10:45-0500 Diastolic blood pressure 60 mm[Hg] Wilkins SALAM [facility] 06-22-2022 10:45-0500 Heart rate 63 /min Wilkins SALAM [facility] 06-22-2022 10:45-0500 Height/Length Percentile 12.42 Wilkins SALAM [facility] Comment on above: Result Comment: ^~:!Percentile Source [facility] 06-22-2022 10:45-0500 Height/Length Z-Score -1.15 Wilkins SALAM [facility] Comment on above: Result Comment: ^~:!ZScore [facility] 06-22-2022 10:45-0500 Respiratory rate 16 /min Wilkins SALAM [facility] 06-22-2022 10:45-0500 SaO2% (BldA) [Mass fraction] 97 % Wilkins SALAM [facility] 06-22-2022 10:45-0500 Systolic blood pressure 96 mm[Hg] Wilkins SALAM [facility] 06-22-2022 10:45-0500 weight -0.64 Wilkins SALAM [facility] Comment on above: Result Comment: ^~:!ZScore [facility] 06-22-2022 10:45-0500 Weight Percentile 26.25 % Wilkins SALAM [facility] Comment on above: Result Comment: ^~:!Percentile Source [facility] 05-18-2022 13:05-0500 Blood Pressure Location Timi KOENIG [facility] [place] 05-18-2022 13:05-0500 Body temperature 98.78 [degF] Timi HINESEK [facility] [place] 05-18-2022 13:05-0500 bodymassindex 0.23 Timi HINESEK [facility] [place] Comment on above: Result Comment: ^~:!ZScore [facility] 05-18-2022 13:05-0500 Diastolic blood pressure 54 mm[Hg] Timi KOENIG [facility] [place] 05-18-2022 13:05-0500 Heart rate 78 /min Timi WNEK [facility] 05-18-2022 13:05-0500 Height/Length Percentile 13.37 Timi WNEK [facility] [place] Comment on above: Result Comment: ^~:!Percentile Source -[facility] [place] 05-18-2022 13:05-0500 Height/Length Z-Score -1.11 Timi WNEK [facility] [place] Comment on above: Result Comment: ^~:!ZScore [facility] 05-18-2022 13:05-0500 Respiratory rate 16 /min Timi HINESEK [facility] 05-18-2022 13:05-0500 Systolic blood pressure 86 mm[Hg] Timi WNEK [facility] 05-18-2022 13:05-0500 weight -0.34 Timi WNEK [facility] [place] Comment on above: Result Comment: ^~:!ZScore [facility] 05-18-2022 13:05-0500 Weight Percentile 36.57 % Timi WNEK [facility] [place] Comment on above: Result Comment: ^~:!Percentile Source -[facility] [place] 04-20-2022 09:26-0500 Blood Pressure Location Sofia SAM [facility] 04-20-2022 09:26-0500 Body temperature 98.42 [degF] Sofia SAM [facility] [place] 04-20-2022 09:26-0500 Diastolic blood pressure 62 mm[Hg] Sofia SAM [facility] [place] 04-20-2022 09:26-0500 Heart rate 76 /min Sofia SAM [facility] 04-20-2022 09:26-0500 Height/Length Percentile 0.00 Sofia SMA [facility] [place] Comment on above: Result Comment: ^~:!Percentile Source -[facility] [place] 04-20-2022 09:26-0500 Height/Length Z-Score -15.12 Sofia SAM [facility] Comment on above: Result Comment: ^~:!ZScore [facility] 04-20-2022 09:26-0500 Respiratory rate 20 /min Sofia SAM [facility] 04-20-2022 09:26-0500 Systolic blood pressure 108 mm[Hg] Sofia SAM [facility] 04-20-2022 09:26-0500 weight -0.28 Sofia SAM [facility] Comment on above: Result Comment: ^~:!ZScore [facility] 04-20-2022 09:26-0500 Weight Percentile 38.96 % Sofia SAM [facility] Comment on above: Result Comment: ^~:!Percentile Source -[facility] [place] 02-18-2022 13:01-0400 Body temperature 97.34 [degF] Lizeth Arevalo [facility] 02-18-2022 13:01-0400 Diastolic blood pressure 62 mm[Hg] Lizeth Arevalo [facility] 02-18-2022 13:01-0400 Heart rate 68 /min Lizeth Arevalo [facility] 02-18-2022 13:01-0400 Respiratory rate 16 /min Lizeth Arevalo [facility] 02-18-2022 13:01-0400 SaO2% (BldA) [Mass fraction] 97 % Lizeth Arevalo [facility] 02-18-2022 13:01-0400 Systolic blood pressure 100 mm[Hg] Lizeth Arevalo [facility] 02-02-2022 14:44-0400 Body temperature 98.06 [degF] Timi WNEK [facility] 02-02-2022 14:44-0400 Diastolic blood pressure 64 mm[Hg] Timi WNEK [facility] 02-02-2022 14:44-0400 Heart rate 64 /min Timi WNEK [facility] 02-02-2022 14:44-0400 Respiratory rate 16 /min Timi WNEK [facility] 02-02-2022 14:44-0400 Systolic blood pressure 100 mm[Hg] Timi WNEK [facility] 01-19-2022 13:11-0400 Blood Pressure Location Timi WNEK [facility] 01-19-2022 13:11-0400 Diastolic blood pressure 68 mm[Hg] Timi WNEK [facility] 01-19-2022 13:11-0400 Heart rate 96 /min Timi WNEK [facility] 01-19-2022 13:11-0400 Respiratory rate 18 /min Timi WNEK [facility] [place] 01-19-2022 13:11-0400 Systolic blood pressure 90 mm[Hg] Timi WNEK [facility] 01-05-2022 11:38-0400 Blood Pressure Location Timi WNEK [facility] [place] 01-05-2022 11:38-0400 Body temperature 98.42 [degF] Timi WNEK [facility] 01-05-2022 11:38-0400 Diastolic blood pressure 56 mm[Hg] Timi WNEK [facility] 01-05-2022 11:38-0400 Heart rate 116 /min Timi WNEK [facility] 01-05-2022 11:38-0400 Respiratory rate 20 /min Timi WNEK [facility] 01-05-2022 11:38-0400 Systolic blood pressure 92 mm[Hg] Timi WNEK [facility] 10-20-2021 15:41-0400 Blood Pressure Location Timi WNEK [facility] [place] 10-20-2021 15:41-0400 Body temperature 97.7 [degF] Timi WNEK [facility] [place] 10-20-2021 15:41-0400 Diastolic blood pressure 52 mm[Hg] Timi WNEK [facility] [place] 10-20-2021 15:41-0400 Heart rate 78 /min Timi WNEK [facility] [place] 10-20-2021 15:41-0400 Respiratory rate 18 /min Timi WNEK [facility] [place] 10-20-2021 15:41-0400 Systolic blood pressure 118 mm[Hg] Timi WNEK [facility] [place] 09-01-2021 14:15-0400 Blood Pressure Location Timi WNEK [facility] [place] 09-01-2021 14:15-0400 Body temperature 98.24 [degF] Timi WNEK [facility] [place] 09-01-2021 14:15-0400 Diastolic blood pressure 58 mm[Hg] Timi WNEK [facility] [place] 09-01-2021 14:15-0400 Heart rate 74 /min Timi WNEK [facility] [place] 09-01-2021 14:15-0400 Respiratory rate 16 /min Timi WNEK [facility] [place] 09-01-2021 14:15-0400 Systolic blood pressure 120 mm[Hg] Timi WNEK [facility] [place] 08-24-2021 15:43-0400 Blood Pressure Location Vanessa Stovall [facility] [place] 08-24-2021 15:43-0400 Body temperature 98.06 [degF] Vanessa Mabton [facility] [place] 08-24-2021 15:43-0400 Diastolic blood pressure 50 mm[Hg] Vanessa Mabton [facility] [place] 08-24-2021 15:43-0400 Heart rate 78 /min Vanessa Mabton [facility] [place] 08-24-2021 15:43-0400 Respiratory rate 18 /min Vanessa Mabton [facility] [place] 08-24-2021 15:43-0400 Systolic blood pressure 118 mm[Hg] Vanessa Mabton [facility] [place] 08-18-2021 15:24-0400 Blood Pressure Location Timi WNEK [facility] [place] 08-18-2021 15:24-0400 Body temperature 97.34 [degF] Timi WNEK [facility] [place] 08-18-2021 15:24-0400 Diastolic blood pressure 60 mm[Hg] Timi WNEK [facility] [place] 08-18-2021 15:24-0400 Heart rate 76 /min Timi WNEK [facility] [place] 08-18-2021 15:24-0400 Respiratory rate 16 /min Timi WNEK [facility] [place] 08-18-2021 15:24-0400 Systolic blood pressure 118 mm[Hg] Timi WNEK [facility] [place] 08-10-2021 08:40-0400 Blood Pressure Location Vanessa Mabton [facility] [place] 08-10-2021 08:40-0400 Body temperature 97.88 [degF] Vanessa Mabton [facility] [place] 08-10-2021 08:40-0400 Diastolic blood pressure 70 mm[Hg] Vanessa Mabton [facility] [place] 08-10-2021 08:40-0400 Heart rate 72 /min Vanessa Mabton [facility] [place] 08-10-2021 08:40-0400 Respiratory rate 16 /min Vanessa Mabton [facility] [place] 08-10-2021 08:40-0400 Systolic blood pressure 118 mm[Hg] Vanessa Mabton [facility] [place] 07-28-2021 13:51-0400 Blood Pressure Location Timi WNEK [facility] [place] 07-28-2021 13:51-0400 Body temperature 98.42 [degF] Timi WNEK [facility] [place] 07-28-2021 13:51-0400 Diastolic blood pressure 68 mm[Hg] Timi WNEK [facility] [place] 07-28-2021 13:51-0400 Heart rate 80 /min Timi WNEK [facility] [place] 07-28-2021 13:51-0400 Respiratory rate 18 /min Timi WNEK [facility] [place] 07-28-2021 13:51-0400 Systolic blood pressure 118 mm[Hg] Timi WNEK [facility] [place] 07-21-2021 08:51-0400 Blood Pressure Location Timi WNEK [facility] [place] 07-21-2021 08:51-0400 Body temperature 98.24 [degF] Timi WNEK [facility] [place] 07-21-2021 08:51-0400 Diastolic blood pressure 68 mm[Hg] Timi WNEK [facility] [place] 07-21-2021 08:51-0400 Heart rate 76 /min Timi WNEK [facility] [place] 07-21-2021 08:51-0400 Respiratory rate 18 /min Timi WNEK [facility] [place] 07-21-2021 08:51-0400 Systolic blood pressure 118 mm[Hg] Timi WNEK [facility] [place] 07-14-2021 09:58-0400 Blood Pressure Location Timi WNEK [facility] [place] 07-14-2021 09:58-0400 Body temperature 98.6 [degF] Timi WNEK [facility] [place] 07-14-2021 09:58-0400 Diastolic blood pressure 68 mm[Hg] Timi WNEK [facility] [place] 07-14-2021 09:58-0400 Systolic blood pressure 118 mm[Hg] Timi WNEK [facility] [place] Encounters Encounter Date Encounter Type Care Provider Facility Start: 11-06-2024 ambulatory Timi R WNEK Facility:[facility] [place] Start: 10-02-2024 End: 10-02-2024 ambulatory Timi R WNEK Facility:[facility] [place] Start: 10-02-2024 End: 10-02-2024 Patient encounter procedure Timi R WNEK [facility] [place] Start: 09-25-2024 End: 09-25-2024 ambulatory Timi R WNEK Facility:[facility] [place] Start: 09-25-2024 End: 09-25-2024 Patient encounter procedure Timi R WNEK [facility] [place] Start: 08-07-2024 End: 08-07-2024 ambulatory Timi R WNEK Facility:[facility] [place] Start: 07-17-2024 ambulatory Timi R WNEK Facility:[facility] [place] Start: 05-01-2024 End: 05-01-2024 ambulatory Timi R WNEK Facility:[facility] [place] Start: 05-01-2024 End: 05-01-2024 Patient encounter procedure Timi HINESEK [facility] [place] Start: 01-17-2024 End: 01-17-2024 ambulatory Timi R WNEK Facility:[facility] [place] Start: 01-17-2024 End: 01-17-2024 Patient encounter procedure Timi HINESEK [facility] [place] Start: 12-27-2023 ambulatory Timi HINESEK Facility:[facility] [place] Start: 12-20-2023 ambulatory Timi HINESEK Facility:[facility] [place] Start: 09-13-2023 End: 09-13-2023 Patient encounter procedure Timi KOENIG [facility] [place] Start: 05-31-2023 End: 05-31-2023 Patient encounter procedure Timi KOENIG [facility] [place] Start: 04-26-2023 End: 04-26-2023 Patient encounter procedure Christopher Fermin [facility] [place] Start: 04-21-2023 End: 04-21-2023 Patient encounter procedure Rosa M CANTOR [facility] [place] Start: 03-15-2023 End: 03-15-2023 Patient encounter procedure Timi KOENIG [facility] [place] Start: 03-01-2023 End: 03-01-2023 Patient encounter procedure Timi KOENIG [facility] [place] Start: 02-08-2023 End: 02-08-2023 Patient encounter procedure Timi KOENIG [facility] [place] Start: 02-01-2023 End: 02-01-2023 Patient encounter procedure Timi KOENIG [facility] [place] Start: 01-25-2023 End: 01-25-2023 Patient encounter procedure Timi KOENIG [facility] [place] Start: 01-04-2023 End: 01-04-2023 Patient encounter procedure Timi KOENIG [facility] [place] Start: 12-28-2022 End: 12-28-2022 Patient encounter procedure Timi KOENIG [facility] [place] Start: 12-21-2022 End: 12-21-2022 Patient encounter procedure Timi KOENIG [facility] [place] Start: 11-29-2022 End: 11-29-2022 Patient encounter procedure Timi KOENIG [facility] [place] Start: 11-29-2022 End: 11-29-2022 Well adult monitoring check done Timi KOENIG [facility] [place] Start: 08-01-2022 Telephone encounter Clary lamas MD Work Phone: Peds Gastroenterology Comment on above: Appointment Start: 07-29-2022 End: 09-14-2022 Pre-admission assessment Nelli Rueda [facility] Start: 07-27-2022 End: 07-27-2022 Patient encounter procedure Timi KOENIG [facility] [place] Start: 06-29-2022 End: 06-29-2022 Patient encounter procedure Timi KOENIG [facility] [place] Start: 06-22-2022 End: 06-22-2022 Patient encounter procedure Wilkins PATO [facility] Start: 06-16-2022 End: 06-17-[address] TIMI KOENIG Facility: Start: 05-18-2022 End: 05-18-2022 Patient encounter procedure Timi KOENIG [facility] [place] Start: 04-20-2022 End: 04-20-2022 Patient encounter procedure Sofia SAM [facility] [place] Start: 02-18-2022 End: 02-18-2022 Patient encounter procedure Lizeth Arevalo [facility] [place] Start: 02-15-2022 End: 05-16-2022 Patient encounter procedure Timi KOENIG [facility] Start: 02-02-2022 End: 02-02-2022 Patient encounter procedure Timi KOENIG [facility] [place] Start: 01-19-2022 End: 01-19-2022 Patient encounter procedure Tmii KOENIG [facility] [place] Start: 01-05-2022 End: 01-05-2022 Patient encounter procedure Timi KOENIG [facility] [place] Start: 11-27-2021 End: 11-28-[address] TIMI KOENIG Facility:[facility] Start: 10-27-2021 End: 10-27-[address] TIMI KOENIG Facility:[facility] Start: 10-20-2021 End: 10-20-2021 Patient encounter procedure Timi KOENIG [facility] [place] Start: 09-01-2021 End: 09-01-2021 Patient encounter procedure Timi KOENIG [facility] [place] Start: 08-24-2021 End: 08-24-2021 Patient encounter procedure Vanessa Stovall [facility] [place] Start: 08-18-2021 End: 08-18-2021 Patient encounter procedure Timi KOENIG [facility] [place] Start: 08-10-2021 End: 08-10-2021 Patient encounter procedure Vanessa Stovall [facility] [place] Start: 07-28-2021 End: 07-28-2021 Patient encounter procedure Timi KOENIG [facility] [place] Start: 07-21-2021 End: 07-21-2021 Lab Drop off Timi HINESHAYDEE [facility] Start: 07-21-2021 End: 07-21-2021 Patient encounter procedure Timi Yaz HINESHAYDEE [facility] [place] Start: 07-14-2021 End: 07-14-2021 Patient encounter procedure Timi HINESHAYDEE [facility] [place] Procedures Date Procedure Procedure Detail Performing Clinician Start: 07-13-2022 Colonoscopy Timi KOENIG Start: 07-13-2022 Esophagogastroduodenoscopy Timi KOENIG Start: 2004 Circumcision Timi KOENIG Tympanotomy Timi KOENIG Plan of Treatment Date Care Activity Detail Author Start: 2020 MENINGOCOCCAL CONJUG ATE (1 - 2-dose series) MENINGOCOCCAL CONJUGATE (1 - 2-dose series) [facility] Start: 2018 PEDS TO ADULT TRANSI TION ANNUAL ASSESSMENT PEDS TO ADULT TRANSITION ANNUAL ASSESSMENT [facility] Start: 2016 Adult depression scr eening assessment DEPRESSION SCREENING [facility] Start: 2016 PEDS TO ADULT TRANSI TION INITIAL DISCUSSION PEDS TO ADULT TRANSITION INITIAL DISCUSSION [facility] Start: 11-13-2015 HPV VACCINE (1 - Mal e 2-dose series) HPV VACCINE (1 - Male 2-dose series) [facility] Start: 11-13-2011 Urine microalbumin profile DTAP,TDAP ,TD (1 - Tdap) [facility] Start: 2005 MMR (1 of 2 - Standa rd series) MMR (1 of 2 - Standard series) [facility] Start: 2005 VARICELLA (1 of 2 - 2-dose childhood series) VARICELLA (1 of 2 - 2-dose childhood series) [facility] Start: 05-15-2005 COVID-19 VACCINE (#1) COVID-19 VACCI NE (#1) [facility] Start: 01-13-2005 POLIO (1 of 3 - 4-do se series) POLIO (1 of 3 - 4-dose series) [facility] Start: 2004 HEPATITIS B (1 of 3 - 3-dose series) HEPATITIS B (1 of 3 - 3-dose series) [facility] Immunizations Immunization Date Immunization Notes Care Provider Fa cility 04-19-2022 HPV, unspecified formulation Sofia SAM [facility] [place] 04-19-2022 influenza virus vaccine, unspecified formulation Sofia [facility] [place] 04-19-2022 meningococcal ACWY vaccine, unspecified formulation [employer] [facility] [place] 07-18-2017 diphtheria, tetanus toxoids and acellular pertussis vaccine Timi KOENIG [facility] [place] Comment on above: Result Comment: tommy mcintosh 07-18-2017 HPV, unspecified formulation Timi KOENIG [facility] [place] 07-18-2017 meningococcal ACWY vaccine, unspecified formulation Timi KOENIG [facility] [place] 07-18-2017 tetanus and diphther ia toxoids, adsorbed, preservative free, for adult use (2 Lf of tetanus toxoid and 2 Lf of diphtheria toxoid) Timi KOENIG [facility] [place] Comment on above: Result Comment: [10/03 Unchart] error 07-18-2017 tetanus toxoid, reduced diphtheria toxoid, and acellular pertussis vaccine, adsorbed Lizeth Arevalo [facility] [place] 09-14-2010 hepatitis A vaccine, adult dosage Timi KOENIG [facility] [place] 07-14-2009 diphtheria, tetanus toxoids and acellular pertussis vaccine Lizeth Arevalo [facility] [place] 07-14-2009 poliovirus vaccine, unspecified formulation Timi KOENIG [facility] [place] 07-14-2009 tetanus toxoid, reduced diphtheria toxoid, and acellular pertussis vaccine, adsorbed Timi KOENIG [facility] [place] Comment on above: Result Comment: [10/03 Unchart] error 07-14-2009 varicella virus vaccine Timi KOENIG [facility] [place] 11-13-2007 hepatitis A vaccine, adult dosage Timi KOENIG [facility] [place] 11-13-2007 measles, mumps and rubella virus vaccine Timi KOENIG [facility] [place] 02-27-2007 influenza virus vaccine, unspecified formulation Timi KOENIG [facility] [place] 05-16-2006 diphtheria, tetanus toxoids and acellular pertussis vaccine Lizeth Arevalo [facility] [place] 05-16-2006 haemophilus influenz ae type b vaccine, HbOC conjugate Timi KOENIG [facility] [place] 05-16-2006 tetanus toxoid, reduced diphtheria toxoid, and acellular pertussis vaccine, adsorbed Timi KOENIG [facility] [place] Comment on above: Result Comment: [10/03 Unchart] error 11-15-2005 measles, mumps and rubella virus vaccine Timi HINESEK [facility] [place] 11-15-2005 varicella virus vaccine Timi HINESEK [facility] [place] 08-15-2005 hepatitis B vaccine, adult dosage Timi HINESEK [facility] [place] 08-15-2005 poliovirus vaccine, unspecified formulation Timi HINESEK [facility] [place] 05-16-2005 diphtheria, tetanus toxoids and acellular pertussis vaccine Timi KOENIG [facility] [place] 05-16-2005 haemophilus influenz ae type b vaccine, HbOC conjugate Timi KOENIG [facility] [place] 05-16-2005 pneumococcal conjuga te vaccine, 13 valent Timi KOENIG [facility] [place] 05-16-2005 tetanus toxoid, reduced diphtheria toxoid, and acellular pertussis vaccine, adsorbed Timi KOENIG [facility] [place] Comment on above: Result Comment: [10/03 Unchart] error 03-15-2005 diphtheria, tetanus toxoids and acellular pertussis vaccine Timi WNEK [facility] [place] 03-15-2005 haemophilus influenz ae type b vaccine, HbOC conjugate Timi WNEK [facility] [place] 03-15-2005 pneumococcal conjuga te vaccine, 13 valent Timi WNEK [facility] [place] 03-15-2005 poliovirus vaccine, unspecified formulation Timi WNEK [facility] [place] 03-15-2005 tetanus toxoid, reduced diphtheria toxoid, and acellular pertussis vaccine, adsorbed Timi WNEK [facility] [place] Comment on above: Result Comment: [10/03 Unchart] error 01-13-2005 diphtheria, tetanus toxoids and acellular pertussis vaccine Timi WNEK [facility] [place] 01-13-2005 haemophilus influenz ae type b vaccine, HbOC conjugate Timi WNEK [facility] [place] 01-13-2005 hepatitis B vaccine, adult dosage Timi WNEK [facility] [place] 01-13-2005 pneumococcal conjuga te vaccine, 13 valent Timi WNEK [facility] [place] 01-13-2005 poliovirus vaccine, unspecified formulation Timi WNEK [facility] [place] 01-13-2005 tetanus toxoid, reduced diphtheria toxoid, and acellular pertussis vaccine, adsorbed Timi KOENIG [facility] [place] Comment on above: Result Comment: [10/03 Unchart] error 2004 hepatitis B vaccine, adult dosage Timi KOENIG [facility] [place] NEGATED: Highlighted row has not occurred!04-30-2024 influenza virus vaccine, unspecified formulation Timi KOENIG [facility] [place] NEGATED: Highlighted row has not occurred!01-04-2023 influenza virus vaccine, unspecified formulation Timi KOENIG [facility] [place] NEGATED: Highlighted row has not occurred!08-11-2020 influenza virus vaccine, unspecified formulation Timi KOENIG [facility] [place] NEGATED: Highlighted row has not occurred!08-11-2020 HPV, unspecified formulation Timi KOENIG [facility] [place] Payers Date Payer Category Payer Medicaid [id number] 2004 Unknown [id number] 2.16.8 [id number] 2004 Unknown [id number] 2.16.8 [id number] 2004 Unknown [id number] 2.16.8 [id number] 2004 Unknown [id number] 2.16.8 [id number] 2004 Unknown [id number] 2.16.8 [id number] 2004 Unknown [id number] 2.16.8 [id number] 2004 Unknown [id number] 2.16.8 [id number] 2004 Unknown [id number] 2.16.8 [id number] 2004 Unknown [id number] 2.16.8 [id number] 1984 Unknown [id number] 2.16.84 [id number] 1984 Unknown [id number] 2.16.84 [id number] 1984 Unknown [id number] 2.16.84 [id number] 1959 Unknown [id number] Social History Date Type Detail Facility Start: 09-09-2020 End: 10-02-2024 Tobacco smoking status Never smoked tobacco (finding) [facility] [place] [facility] [place] Sex Assigned At Male [facility] [place] Tobacco smoking stat [facility] Tobacco smoking consumption unknown [facility] Start: 2004 Sex Assigned At Not on file C [facility] Sexual Orientation [facility] [place] Start: 05-02-2017 Sex Male (finding) [facility] Functional Status Date Assessment Result Facility 05-01-2024 Functional Status N/A [facility] [place] 01-17-2024 Functional Status N/A [facility] [place] 09-13-2023 Functional Status N/A [facility] [place] 05-31-2023 Functional Status N/A [facility] [place] 04-26-2023 Functional Status N/A [facility] [place] 04-21-2023 Functional Status N/A [facility] [place] 03-15-2023 Functional Status N/A [facility] [place] 03-01-2023 Functional Status N/A [facility] [place] 02-08-2023 Functional Status N/A [facility] [place] 02-01-2023 Functional Status N/A [facility] [place] 01-25-2023 Functional Status N/A [facility] [place] 01-04-2023 Functional Status N/A [facility] [place] 12-21-2022 Functional Status N/A [facility] [place] 11-29-2022 Functional Status N/A [facility] [place] 07-27-2022 Functional Status N/A [facility] [place] 07-27-2022 Functional Status N/A [facility] 06-29-2022 Functional Status N/A [facility] [place] 06-22-2022 Functional Status N/A [facility] 05-18-2022 Functional Status N/A [facility] [place] 04-20-2022 Functional Status N/A [facility] [place] 02-18-2022 Functional Status N/A [facility] [place] 02-02-2022 Functional Status N/A [facility] [place] 01-19-2022 Functional Status N/A [facility] [place] 01-05-2022 Functional Status N/A [facility] [place] 10-20-2021 Functional Status N/A [facility] [place] Clinical Notes 08-12-2020 to 09-25-2024 Telephone Encounter - Awilda Stratton MA - 08/01/2022 9:47 AM EDTLaboratoryLaboratoryLaboratoryLaboratoryLaboratoryLaboratoryLaboratoryLaborat oryLaboratoryLaboratoryRadiologyLaboratoryLaboratory Note Date & Type Note Facility 09-25-2024 Hospital Discharg e instructions Follow [facility] 09/25/2024 14:20:02 With:Timi KOENIG MD, PED Address: [address] [place] [address] [address]- When: Unknown Comments:Appointment has already been scheduled [facility] [place] 09-25-2024 [facility] Discharg e instructions Follow Up Care 09/25/2024 10:13:20 With:Timi KOENIG MD, PED Address: [address] [address] [place] [address]- When:Within 1 Week(s) Comments:arm pain [facility] [place] 04-30-2024 [facility] Discharg e instructions Patient Education 04/30/2024 15:36:06 [...] Centers for Disease Control and Prevention: cdc.gov [place] [employer]: heart.org National Heart, Lung, and Blood [place]: nhlbi.nih.gov This information is not intended to replace advice given to you by your health care provider. Make sure you discuss any questions you have with your health care provider. Document Revised: 12/22/2022 Document Reviewed: 12/15/2022 [employer] Patient Education 2023 [place]. Follow Up Care 01/17/2024 15:40:07 With:LIBERTY SMITH, DALIA Phillips Address: [address] [place] [id number]- When:Within 3 Month(s) Comments:recheck ADHD [facility] [place] 04-30-2024 Note Patient Education Nutrition BMI for [...] for Disease Control and Prevention: cdc.gov ??? [place] Heart Association: heart.org ??? National Heart, Lung, and Blood [place]: nhlbi.nih.gov This information is not intended to replace advice given to you by your health care provider. Make sure you discuss any questions you have with your health care provider. Document Revised: 12/22/2022 Document Reviewed: 12/15/2022 [employer] Patient Education ? 2023 [employer]. [facility] 01-17-2024 Hospital Discharg e instructions Follow Up Care 01/17/2024 13:19:23 With:Timi KOENIG MD, PED Address: [address] [place] [address]- When:Within 1 Month(s) Comments:recheck [facility] [place] 09-05-2023 Hospital Discharg e instructions Follow Up Care 09/05/2023 13:45:04 With:Timi KOENIG MD, PED Address: [address] [facility] [place] [address]- When:Within 3 Month(s) Comments:recheck [facility] 04-26-2023 [facility] Discharg e instructions Patient Education [...] Medicines to relieve symptoms. These can include eoub-tbh-hetooxw medicine for pain and fever, medicines for cough or congestion, and medicines to relieve diarrhea. Antiviral medicines. These medicines are available only for certain types of viruses. Some viral illnesses can be prevented with vaccinations. A common example is the flu shot. Follow these instructions at home: Medicines Take qakq-bbr-lorftat and prescription medicines only as told by [...] and water are not available, use hand chief construction inspector. Avoid touching your nose, eyes, and [...] provider. Document Revised: 08/17/2020 Document Reviewed: 02/11/2020 [employer] Patient Education 2022 [employer]. 04/26/2023 14:28:25 Viral Respiratory Infection Viral Respiratory [...] at home: Managing pain and congestion Take wrly-kvr-jpitfew and prescription medicines only as told by [...] water are not available, use alcohol-based hand chief construction inspector. ?Cover your mouth when you cough. [...] provider. Document Revised: 07/08/2021 Document Reviewed: 07/08/2021 [employer] Patient Education 2022 [employer]. Follow Up Care 04/26/2023 08:11:38 With:Confirm appointment as scheduled. Address: When: Unknown [facility] [place] 04-21-2023 Hospital Discharg e instructions Patient Education [...] infection. Follow these instructions at home: Give hdbh-nxv-zuqxqec and prescription medicines only as told by [...] provider. Document Revised: 07/12/2021 Document Reviewed: 07/12/2021 [employer]ie Patient Education 2022 [employer] 04/21/2023 14:39:36 Viral Illness, Pediatric Viral Illness, [...] at home, at school, or at child day care provider. Your child may get a virus by: [...] Your child's health care provider may suggest weym-kmq-qeebyhc medicines to relieve symptoms. A viral illness [...] Follow these instructions at home: Medicines Give sgvp-swr-kyhglzy and prescription medicines only as told by your child's health care provider. Cold and flu medicines are usually not needed. If your child has a fever, ask the health care provider what imlg-ftm-fnfewic medicine to use and what amount, or [...] available, he or she should use hand chief construction inspector. Teach your child to avoid touching [...] sore throat, cough, diarrhea, or rash. Give blxt-vfa-mhgcqpy and prescription medicines only as told by your child's health care provider. Cold and flu medicines are usually not needed. If your child has a fever, ask the health care provider what tfua-dcs-miekcuw medicine to use and what amount to [...] provider. Document Revised: 08/17/2020 Document Reviewed: 02/11/2020 [employer] Patient Education 2022 [employer]. Follow Up Care 04/21/2023 08:50:29 With:[facility] Address: When:7 to 10 days Comments:For a recheck viral illness [facility] [place] 03-01-2023 Hospital Discharg e instructions Follow Up Care 03/01/2023 14:23:41 With:Timi KOENIG MD, PED Address: [facility] [address] [facility] [place] [address]- When:Within 3 Month(s) Comments:recheck ADHD [facility] [place] 02-01-2023 Hospital Discharg e instructions Follow Up Care 02/01/2023 10:58:09 With:Timi KOENIG MD, PED Address: [address] [facility] [place] [address]- When:Within 2 Week(s) Comments:recheck bronchitis/sinusitis [facility] [place] 01-25-2023 Hospital Discharg e instructions Follow Up Care 01/25/2023 11:10:43 With:Timi KOENIG MD, PED Address: [address] [place] [address]- When:Within 1 Week(s) Comments:recheck bronchitis [facility] [place] 01-25-2023 Hospital Discharg e instructions Follow Up Care 01/25/2023 09:28:17 With:Timi KOENIG MD, PED Address: [address] [address]- When:Within 1 Week(s) Comments:recheck cough [facility] [place] 01-03-2023 Hospital Discharg e instructions Follow Up Care 01/03/2023 08:56:05 With:Timi KOENIG MD, PED Address: [address] [facility] [place] [address]- When:Within 1 Week(s) Comments:recheck stomatitis [facility] [place] 12-21-2022 Hospital Discharg e instructions Follow Up Care 12/21/2022 08:12:55 With:Timi KOENIG MD, PED Address: [address] [place] [address]- When: Unknown Comments:Appointment has already been scheduled [facility] [place] 11-29-2022 Hospital Discharg e instructions Patient Education [...] provider. Document Revised: 08/23/2021 Document Reviewed: 08/23/2021 [employer] Patient Education 2022 [employer]. Follow Up Care 11/14/2022 10:40:52 With:Timi KOENIG MD, PED Address: [address] [place] [address]- When:Within 3 Month(s) Comments:recheck ADHD With:Timi KOENIG MD, PED Address: [address] [facility] [place] [address]- When:Within 12 Month(s) Comments:WC [facility] [place] 09-01-2022 Hospital Discharg e instructions Follow Up Care 09/01/2022 13:28:29 With:Timi KOENIG MD, PED Address: [address] [place] [address]- When:Within 3 Month(s) Comments:recheck ADHD [facility] [place] 08-01-2022 Miscellaneous Notes Spoke to: Mother Confirmed appointment on: 08/02/[address] Baker To bring records: [] Yes [x] No To Fax records to: [] Yes [x] No Confirmed phone number: [phone] Location: [facility] is located in the [facility]. [address] [place] [address] Instructions: Check in is located on the 1st floor. Please check in 15 minutes before your appointment. Please use The Appointment Pass Kiosks to electronically check in for your appointment. Attendants are available to assist. After check in please report to 2nd Floor. If for any reason a reschedule or cancellation is needed please call [phone]). documented in this encounter [facility] 07-27-2022 Hospital Discharg e instructions Patient Education [...] per serving. Talk with a diet and environmental health specialist (dietitian) if you have questions about specific [...] Bulgur wheat. Millet. Quinoa. Bran muffins. Popcorn. Moffett wafer crackers. Meats and other proteins Earling, kidney, and srinivasan beans. Soybeans. Split peas. [...] Cream cheese. Sour cream. Fats and oils [place]. Beverages Soft drinks. Other foods Cakes and [...] 04/03/2006 Document Revised: 02/05/2018 Document Reviewed: 02/05/2018 [employer] Patient Education 2020 [employer]. Follow Up Care 07/26/2022 08:54:14 With:Nelli Vickers CNP Address: When:3 months [facility] 06-29-2022 Hospital Discharg e instructions Follow Up Care 06/29/2022 11:06:04 With:Timi KOENIG MD, PED Address: [facility] [address] [place] [address]- When: Unknown Comments:Appointment has already been scheduled [facility] [place] 06-15-2022 Hospital Discharg e instructions Follow Up Care 06/15/2022 13:22:35 With:Timi KOENIG MD, PED Address: [address] [place] [place] [address]- When:Within 4 Week(s) Comments:recheck abd. pain/constipation [facility] [place] 05-04-2022 Hospital Discharg e instructions Follow Up Care 05/04/2022 16:23:53 With:Timi KOENIG MD, PED Address: [address] [facility] [place] [address]- When:Within 2 Week(s) Comments:recheck abd. pain With:Timi KOENIG MD, PED Address: [address] [facility] [place] [address]- When:Within 3 Month(s) Comments:recheck ADHD [facility] [place] 04-19-2022 Hospital Discharg e instructions Follow Up Care 04/19/2022 08:17:39 With:Timi KOENIG MD, PED Address: [address] [place] [address]- When: Unknown Comments:confirm appt for ADHD recheck [facility] [place] 01-19-2022 Hospital Discharg e instructions Follow Up Care 01/19/2022 13:03:23 With:Timi KOENIG MD, PED Address: [address] [place] [address]- When: Unknown Comments:Appointment has already been scheduled [facility] [place] 01-05-2022 Hospital Discharg e instructions Follow Up Care 01/05/2022 09:19:04 With:Timi KOENIG MD, PED Address: [address] [place] [address]- When:Within 2 Week(s) Comments:recheck migraine [facility] [place] 10-20-2021 Hospital Discharg e instructions Follow Up Care 10/20/2021 16:01:49 With:Timi KOENIG MD, PED Address: [address] [place] [address]- When:Within 3 Month(s) Comments:recheck ADHD [facility] [place] 10-11-2021 Hospital Discharg e instructions Follow Up Care 10/11/2021 12:07:12 With:Timi KOENIG MD, PED Address: [address] [place] [address]- When:01/20/2022 Comments:recheck ADHD [facility] [place] 09-01-2021 Hospital Discharg e instructions Follow Up Care 09/01/2021 09:43:14 With:Timi KOENIG MD, PED Address: [address] [place] [address]- When:09/15/2021 Comments:recheck vomiting [facility] [place] 08-18-2021 Hospital Discharg e instructions Follow Up Care 08/18/2021 10:31:35 With:Timi KOENIG MD, PED Address: [address] [place] [address]- When: Unknown Comments:Appointment has already been scheduled [facility] [place] 08-09-2021 Hospital Discharg e instructions Follow Up Care 08/09/2021 09:44:08 With:Timi KOENIG MD, PED Address: [address] [place] [address]- When: Unknown Comments:recheck constipation, abdominal pain in 2 weeks. [facility] [place] 07-28-2021 Hospital Discharg e instructions Follow Up Care 07/28/2021 09:08:59 With:Timi KOENIG MD, PED Address: [address] [place] [address]- When:08/11/2021 Comments:recheck sinusitis [facility] [place] 07-21-2021 Evaluation + Plan note Diagnostic Tests PendingGroup A Strep by PCR 07/21/21 Future Scheduled TestsCeliac Disease Comprehensive 08/12/20Thyroid Stimulating Hormone 08/12/20 [facility] 07-20-2021 Hospital Discharg e instructions Follow Up Care 07/20/2021 10:31:37 With:Timi KOENIG MD, PED Address: [address] [place] [address]- When:07/28/2021 Comments:recheck [facility] [place] 07-14-2021 Hospital Discharg e instructions Follow Up Care 07/14/2021 08:18:15 With:Timi KOENIG MD, PED Address: [address] [place] [address] [address] [place] [address]- When:07/21/2021 Comments:jessica abd. pain/vomiting [facility] [place] 08-12-2020 Evaluation + Plan note Future Scheduled TestsCeliac Disease Comprehensive 08/12/20Thyroid Stimulating Hormone 08/12/20 [facility] [place] Evaluation + Plan note Future Appointments Appointment Date:08/24/2021 03:40:00 PM Scheduled Provider:Vanessa Stovall MD Location:[facility] [place] Appointment Type:Peds OV 10 Future Scheduled TestsCeliac Disease Comprehensive 08/12/20Thyroid Stimulating Hormone 08/12/20 Referrals to Other Providers Referred by: Vanessa Stovall MD [facility] [place] Evaluation + Plan note Future Appointments Appointment Date:08/24/2021 03:40:00 PM Scheduled Provider:Vanessa Stovall MD Location:[facility] [place] Appointment Type:Peds OV 10 [facility] [place] Evaluation + Plan note Future Appointments Appointment Date:09/15/2021 03:40:00 PM Scheduled Provider:Timi KOENIG MD Location:[facility] [place] Appointment Type:Peds OV 10 [facility] [place] Evaluation + Plan note Future Appointments Appointment Date:02/02/2022 04:20:00 PM Scheduled Provider:Timi KOENIG MD Location:[facility] [place] Appointment Type:Peds OV 10 [facility] [place] Evaluation + Plan note Future Appointments Appointment Date:02/02/2022 02:40:00 PM Scheduled Provider:Timi KOENIG MD Location:[facility] Appointment Type:Peds OV 10 [facility] [place] Evaluation + Plan note Future Appointments Appointment Date:05/04/2022 04:20:00 PM Scheduled Provider:Timi KOENIG MD Location:[facility] Appointment Type:Peds OV 10 [facility] [place] Evaluation + Plan note Future Appointments Appointment Date:03/23/2022 09:20:00 AM Scheduled Provider:Timi KOENIG MD Location:[facility] Appointment Type:Peds OV 20 Appointment Date:05/04/2022 04:20:00 PM Scheduled Provider:Timi KOENIG MD Location:[facility] Appointment Type:Peds OV 10 Future Scheduled TestsO & P Exam, Routine 02/18/22Stool Occult Blood 02/18/22Enteric Panel by PCR 02/18/22 [facility] [place] Evaluation + Plan note Future Appointments Appointment Date:05/04/2022 04:20:00 PM Scheduled Provider:Timi KOENIG MD Location:[facility] Appointment Type:Peds OV 10 Future Scheduled TestsO & P Exam, Routine 02/18/22Stool Occult Blood 02/18/22Enteric Panel by PCR 02/18/22 [facility] [place] Evaluation + Plan note Future Appointments Appointment Date:05/18/2022 01:10:00 PM Scheduled Provider:Timi KOENIG MD Location:[facility] Appointment Type:Peds OV 10 Future Scheduled TestsO & P Exam, Routine 02/18/22Stool Occult Blood 02/18/22Enteric Panel by PCR 02/18/22 [facility] Evaluation + Plan note Future Appointments Appointment Date:06/15/2022 01:00:00 PM Scheduled Provider:Timi KOENIG MD Location:[facility] Appointment Type:Peds OV 10 Appointment Date:08/17/2022 01:00:00 PM Scheduled Provider:Timi KOENIG MD Location:[facility] Appointment Type:Peds OV 10 Future Scheduled TestsO & P Exam, Routine 02/18/22Stool Occult Blood 02/18/22Enteric Panel by PCR 02/18/22 [facility] [place] Evaluation + Plan note Future Appointments Appointment Date:06/29/2022 10:40:00 AM Scheduled Provider:Timi KOENIG MD Location:[facility] Appointment Type:Peds OV 10 Appointment Date:07/20/2022 03:05:00 PM Scheduled Provider: Location:[facility] Appointment Type:Surgery FT Appointment Date:08/17/2022 01:00:00 PM Scheduled Provider:Timi KOENIG MD Location:[facility] Appointment Type:Peds OV 10 Future Scheduled TestsCalprotectin, Fecal 3IgA, Quant. 06/22/22O & P Exam, Routine 02/18/22t-Transglutaminase IgA 06/22/22Stool Occult Blood 02/18/22Enteric Panel by PCR 02/18/22CBC w/ Indices 06/22/22Comprehensive Metabolic Panel 06/22/22Thyroid Stimulating Hormone 06/22/22 [facility] Evaluation + Plan note Future Appointments Appointment Date:07/13/2022 12:30:00 PM Scheduled Provider: Location:[facility] Appointment Type:Surgery FT Appointment Date:07/27/2022 01:00:00 PM Scheduled Provider:Timi KOENIG MD Location:[facility] Appointment Type:Peds OV 10 Appointment Date:08/17/2022 01:00:00 PM Scheduled Provider:Timi KOENIG MD Location:[facility] Appointment Type:Peds OV 10 Future Scheduled TestsCalprotectin, Fecal 3IgA, Quant. 06/22/22O & P Exam, Routine /08/06t-Transglutaminase IgA 06/22/22Stool Occult Blood 02/18/22Enteric Panel by PCR 02/18/22CBC w/ Indices 06/22/22Comprehensive Metabolic Panel 06/22/22Thyroid Stimulating Hormone 06/22/22 [facility] [place] Evaluation + Plan note Future Appointments Appointment Date:08/17/2022 01:00:00 PM Scheduled Provider:Timi KOENIG MD Location:[facility] Appointment Type:Peds OV 10 Appointment Date:10/26/2022 01:00:00 PM Scheduled Provider:Nelli Vickers CNP Location:[facility] Appointment Type:[facility] Follow Up Future Scheduled TestsCalprotectin, Fecal 06/22/22Fecal WBC Lactoferrin 07/27/22Giardia lamblia, Direct Detection EIA 07/27/22IgA, Quant. 06/22/22O & P Exam, Routine 02/18/22O & P Exam, Routine 07/27/22t-Transglutaminase IgA 06/22/22Clostridium Difficile PCR 07/27/22Stool Occult Blood 02/18/22Enteric Panel by PCR 02/18/22Enteric Panel by PCR 07/27/22CBC w/ Indices 06/22/22Comprehensive Metabolic Panel 06/22/22Thyroid Stimulating Hormone 06/22/22CT Abdomen/Pelvis w/ Contrast 07/27/22NM Gastric Emptying Study 07/27/22 [facility] [place] Evaluation + Plan note Future Appointments Appointment Date:10/26/2022 01:00:00 PM Scheduled Provider:Nelli Vickers CNP Location:[facility] Appointment Type:[facility] Follow Up Appointment Date:12/07/2022 01:00:00 PM Scheduled Provider:Timi KOENIG MD Location:[facility] Appointment Type:Peds OV 10 Future Scheduled TestsCalprotectin, Fecal 06/22/22Fecal WBC Lactoferrin 07/27/22Giardia lamblia, Direct Detection EIA 07/27/22IgA, Quant. 06/22/22O & P Exam, Routine 02/18/22O & P Exam, Routine 07/27/22t-Transglutaminase IgA 06/22/22Clostridium Difficile PCR 07/27/22Stool Occult Blood 02/18/22Enteric Panel by PCR 02/18/22Enteric Panel by PCR 07/27/22CBC w/ Indices 06/22/22Comprehensive Metabolic Panel 06/22/22Thyroid Stimulating Hormone 06/22/22 [facility] Evaluation + Plan note Future Appointments Appointment Date:03/01/2023 02:00:00 PM Scheduled Provider:Timi KOENIG MD Location:[facility] Appointment Type:Peds OV 10 Future Scheduled TestsCalprotectin, Fecal 06/22/22Fecal WBC Lactoferrin 07/27/22Giardia lamblia, Direct Detection EIA 07/27/22IgA, Quant. 06/22/22O & P Exam, Routine 02/18/22O & P Exam, Routine 07/27/22t-Transglutaminase IgA 06/22/22Clostridium Difficile PCR 07/27/22Stool Occult Blood 02/18/22Enteric Panel by PCR 02/18/22Enteric Panel by PCR 07/27/22CBC w/ Indices 06/22/22Comprehensive Metabolic Panel 06/22/22Thyroid Stimulating Hormone 06/22/22 [facility] [place] Evaluation + Plan note Future Appointments Appointment Date:12/28/2022 01:20:00 PM Scheduled Provider:Timi KOENIG MD Location:[facility] Appointment Type:Peds OV 10 Appointment Date:03/01/2023 02:00:00 PM Scheduled Provider:Timi KOENIG MD Location:[facility] Appointment Type:Peds OV 10 Future Scheduled TestsCalprotectin, Fecal 06/22/22Fecal WBC Lactoferrin 07/27/22Giardia lamblia, Direct Detection EIA 07/27/22IgA, Quant. 06/22/22O & P Exam, Routine 02/18/22O & P Exam, Routine 07/27/22t-Transglutaminase IgA 06/22/22Clostridium Difficile PCR 07/27/22Stool Occult Blood 02/18/22Enteric Panel by PCR 02/18/22Enteric Panel by PCR 07/27/22CBC w/ Indices 06/22/22Comprehensive Metabolic Panel 06/22/22Thyroid Stimulating Hormone 06/22/22 [facility] [place] Evaluation + Plan note Future Appointments Appointment Date:02/01/2023 10:30:00 AM Scheduled Provider:Timi KOENIG MD Location:[facility] Appointment Type:Peds OV 10 Appointment Date:03/01/2023 02:00:00 PM Scheduled Provider:Timi KOENIG MD Location:[facility] Appointment Type:Peds OV 10 Future Scheduled TestsCalprotectin, Fecal 06/22/22Fecal WBC Lactoferrin 07/27/22Giardia lamblia, Direct Detection EIA 07/27/22IgA, Quant. 06/22/22O & P Exam, Routine 02/18/22O & P Exam, Routine 07/27/22t-Transglutaminase IgA 06/22/22Clostridium Difficile PCR 07/27/22Stool Occult Blood 02/18/22Enteric Panel by PCR 02/18/22Enteric Panel by PCR 07/27/22CBC w/ Indices 06/22/22Comprehensive Metabolic Panel 06/22/22Thyroid Stimulating Hormone 06/22/22 [facility] [place] Evaluation + Plan note Future Appointments Appointment Date:02/08/2023 10:30:00 AM Scheduled Provider:Timi KOENIG MD Location:[facility] Appointment Type:Peds OV 10 Appointment Date:03/01/2023 02:00:00 PM Scheduled Provider:Timi KOENIG MD Location:[facility] Appointment Type:Peds OV 10 Future Scheduled TestsCalprotectin, Fecal 06/22/22Fecal WBC Lactoferrin 07/27/22Giardia lamblia, Direct Detection EIA 07/27/22IgA, Quant. 06/22/22O & P Exam, Routine 02/18/22O & P Exam, Routine 07/27/22t-Transglutaminase IgA 06/22/22Clostridium Difficile PCR 07/27/22Stool Occult Blood 22Enteric Panel by PCR 02/18/22Enteric Panel by PCR 07/27/22CBC w/ Indices 06/22/22Comprehensive Metabolic Panel 06/22/22Thyroid Stimulating Hormone 06/22/22 [facility] [place] Evaluation + Plan note Future Appointments Appointment Date:05/31/2023 09:40:00 AM Scheduled Provider:Timi KOENIG MD Location:[facility] Appointment Type:Peds OV 10 Future Scheduled TestsCalprotectin, Fecal 06/22/22Fecal WBC Lactoferrin 07/27/22Giardia lamblia, Direct Detection EIA 07/27/22IgA, Quant. 06/22/22O & P Exam, Routine 07/27/22t-Transglutaminase IgA 06/22/22Clostridium Difficile PCR 07/27/22Enteric Panel by PCR 07/27/22CBC w/ Indices 06/22/22Comprehensive Metabolic Panel 06/22/22Thyroid Stimulating Hormone 06/22/22 [facility] [place] Evaluation + Plan note Future Appointments Appointment Date:03/22/2023 08:50:00 AM Scheduled Provider:Timi KOENIG MD Location:[facility] Appointment Type:Peds OV 10 Appointment Date:05/31/2023 09:40:00 AM Scheduled Provider:Timi KOENIG MD Location:[facility] Appointment Type:Peds OV 10 Future Scheduled TestsCalprotectin, Fecal 06/22/22Fecal WBC Lactoferrin 07/27/22Giardia lamblia, Direct Detection EIA 07/27/22IgA, Quant. 06/22/22O & P Exam, Routine 07/27/22t-Transglutaminase IgA 06/22/22Clostridium Difficile PCR 07/27/22Enteric Panel by PCR 07/27/22CBC w/ Indices 06/22/22Comprehensive Metabolic Panel 06/22/22Thyroid Stimulating Hormone 06/22/22 [facility] [place] Evaluation + Plan note Future Appointments Appointment Date:05/01/2023 02:20:00 PM Scheduled Provider:Rosa M REDMOND Location:[facility] Appointment Type:Peds OV 10 Appointment Date:05/31/2023 09:40:00 AM Scheduled Provider:Timi KOENIG MD Location:[facility] Appointment Type:Peds OV 10 Future Scheduled TestsCalprotectin, Fecal 06/22/22Fecal WBC Lactoferrin 07/27/22Giardia lamblia, Direct Detection EIA 07/27/22IgA, Quant. 06/22/22O & P Exam, Routine 07/27/22t-Transglutaminase IgA 06/22/22Clostridium Difficile PCR 07/27/22Enteric Panel by PCR 07/27/22CBC w/ Indices 06/22/22Comprehensive Metabolic Panel 06/22/22Thyroid Stimulating Hormone 06/22/22 [facility] [place] Evaluation + Plan note Future Appointments Appointment Date:08/23/2023 09:50:00 AM Scheduled Provider:Timi KOENIG MD Location:[facility] Appointment Type:Peds OV 10 Future Scheduled TestsCalprotectin, Fecal 06/22/22Fecal WBC Lactoferrin 07/27/22Giardia lamblia, Direct Detection EIA 07/27/22IgA, Quant. 06/22/22O & P Exam, Routine 07/27/22t-Transglutaminase IgA 06/22/22Clostridium Difficile PCR 07/27/22Enteric Panel by PCR 07/27/22CBC w/ Indices 06/22/22Comprehensive Metabolic Panel 06/22/22Thyroid Stimulating Hormone 06/22/22 [facility] [place] Evaluation + Plan note Future Appointments Appointment Date:12/13/2023 04:10:00 PM Scheduled Provider:Timi KOENIG MD Location:[facility] Appointment Type:Peds OV 10 [facility] [place] Evaluation + Plan note Future Appointments Appointment Date:05/01/2024 04:20:00 PM Scheduled Provider:Timi KOENIG MD Location:[facility] Appointment Type:Peds OV 10 [facility] [place] Evaluation + Plan note Future Appointments Appointment Date:07/17/2024 02:00:00 PM Scheduled Provider:Timi KOENIG MD Location[place] [place] Appointment Type:Peds OV 10 [facility] [place] Evaluation + Plan note Future Appointments Appointment Date:10/02/2024 03:50:00 PM Scheduled Provider:Timi KOENIG MD Location:[facility] [place] Appointment Type:Peds OV 10 Appointment Date:11/06/2024 02:50:00 PM Scheduled Provider:Timi KOENIG MD Location:[facility] [place] Appointment Type:Peds OV 10 [facility] [place] Evaluation + Plan note Future Appointments Appointment Date:11/06/2024 02:50:00 PM Scheduled Provider:Timi KOENIG MD Location:[facility] [place] Appointment Type:Peds OV 10 [facility] [place] [facility] course Narrative No data available for this section [facility] [place] [facility] Discharge instructions No data available for this section [facility] Progress note No data available for this section [facility] [place] Reason for referral (narrative) Referred by: Nelli Vickers CNP [facility] Summary Purpose Family History No [...] section and content) DATE CREATED AUTHOR 02/13/2021 [facility] DATE CREATED AUTHOR AUTHOR'S ORGANIZ ATION 06/21/2022 Trisha Birmingham [facility] DATE CREATED AUTHOR AUTHOR'S ORGANIZ ATION 08/02/2022 [facility] DATE CREATED AUTHOR AUTHOR'S ORGANIZ ATION 11/05/2024 Jarred Grissom [facility] Care Team (unrecognized sect ion and content) [employer] Relationship Specialty Start Date End Date Nelli Vickers, HELP DESK REP [address] [address] Referring Family Medicine 07/29/22 Source Comments (unrecognize d section and content) In the event this informatio n is protected by the Federal Confidentiality of Alcohol and Drug Abuse Patient Records regulations: The Federal rules restrict any use of the information to criminally investigate or prosecute any alcohol or drug abuse patient.[facility] Reason for Visit (unrecogniz ed section [...] BE BASED ON THE PRIMARY CLINICAL RECORDS. [employer] provides no warranty or guarantee of the accuracy or completeness of information in this document.
--- NOTE | 2024-11-09 12:43 | ED.GENADUL1 ---
HPI HPI - General Adult General Chief complaint: Nausea/Vomiting/Diarrhea Stated complaint: VOMITING Time Seen by Provider: 11/09/24 12:37 Source: patient and family Mode of arrival: Wheelchair Limitations: no limitations History of Present Illness HPI narrative: 18-year-old male presents to the emergency department for nausea and vomiting which started about 6:00 this morning. He had a little bit of diarrhea before he vomited but none since. He is complaining of pain and cramping. He has not had a fever or hematemesis. His mother gives most of history and indicates that he has had this problem in the past and has to go to the emergency department 2-3 times per year. He seen a cracking still operator and had both upper and lower endoscopy and she states that nothing was found that was abnormal. Related Data Home Medications ?Medication ?Instructions ?Recorded ?Confirmed cetirizine 10 mg tablet 10 mg PO DAILY 09/11/23 11/09/24 dextroamphetamine-amphetamine ER 30 mg PO QAM 09/11/23 11/09/24 30 mg 24hr capsule,extend release promethazine 12.5 mg tablet 12.5 mg PO TID PRN nausea and 11/09/24 11/09/24 vomiting Previous Rx's ?Medication ?Instructions ?Recorded ondansetron 4 mg disintegrating 4 mg PO Q8H PRN nausea and 05/05/24 tablet vomiting 3 days #10 tabs promethazine 25 mg tablet 25 mg PO Q6H PRN nausea and 11/09/24 vomiting #20 tabs Allergies Allergy/AdvReac Type Severity Reaction Status Date / Time rocephin AdvReac Intermediate Unknown Uncoded 11/09/24 12:30 Opioid HPI Opioid Management Most Recent Opioid Data: Last Pain Scale 7 Today, 13:53 Last MAR Pain Assessment Today, 13:53 Ur Phencyclidine Scrn, (NEGATIVE) Negative Today, 12:35 Review of Systems ROS Narrative A ten point review of systems is negative except as noted above. PFSH PFSH Social History Little interest or pleasure in doing things: not at all Feeling down, depressed, or hopeless: not at all Exam Narrative Exam Narrative: Nurses note and vital signs reviewed and patient is not hypoxic. General: The patient appears uncomfortable. He has an emesis bag with him. Skin: Warm, dry, no pallor noted. There is no rash noted. Head: Normocephalic, atraumatic Eye: Normal conjunctiva, no drainage Ears, Nose, Mouth, and Throat: oral mucosa is moist. Nares patent. Cardiovascular: Regular Rate and Rhythm Respiratory: Patient is in no distress, no accessory muscle use, lungs are clear to auscultation, no wheezing, rales or rhonchi Back: non-tender GI: Mild tenderness present. No distention Musculoskeletal: The patient has no evidence of calf tenderness, no pitting edema, symmetrical pulses noted bilaterally Neurological: A&O, normal speech Psychiatric: Cooperative Constitutional Vital Signs, click to edit/add: Last Vital Signs Temp 97.6 F 11/09/24 12:30 Pulse 70 11/09/24 12:30 Resp 20 11/09/24 12:30 BP 109/71 11/09/24 12:30 Pulse Ox 100 11/09/24 12:30 O2 Del Method Room Air 11/09/24 12:30 Course Vital Signs Vital signs: Vital Signs Temperature 97.6 F 11/09/24 12:30 Pulse Rate 70 11/09/24 12:30 Respiratory Rate 20 11/09/24 12:30 Blood Pressure 109/71 11/09/24 12:30 Pulse Oximetry 100 11/09/24 12:30 Oxygen Delivery Method Room Air 11/09/24 12:30 Temperature 97.6 F 11/09/24 12:30 Pulse Rate 70 11/09/24 12:30 Respiratory Rate 20 11/09/24 12:30 Blood Pressure 109/71 11/09/24 12:30 Pulse Oximetry 100 11/09/24 12:30 Oxygen Delivery Method Room Air 11/09/24 12:30 Medical Decision Making MDM Narrative Medical decision making narrative: His workup is negative except for the positive marijuana test. He initially denied using marijuana. He was given IV fluids. There is no evidence of dehydration and he is discharged home on Phenergan. He was cautioned to stop using marijuana. Treatment diagnosis and follow-up were discussed with the patient and his mother. Differential Diagnosis Differential Diagnosis: Gastroenteritis, dehydration Lab Data Lab results reviewed: Yes I reviewed the patient's lab results Labs: Lab Results 11/09/24 11/09/24 Range/Units 12:35 12:39 WBC 7.1 (4.0-11.0) 10^3/uL RBC 5.26 (4.70-6.10) 10^6/uL Hgb 16.1 (14.0-18.0) g/dL Hct 45.3 (42.0-54.0) % MCV 86.1 (80.0-94.0) fL MCH 30.6 (25.9-34.0) pg MCHC 35.5 H (29.9-35.2) g/dL RDW 12.1 (11.0-15.0) % Plt Count 292 (150-450) 10^3/uL MPV 10.8 (9.5-13.5) fL Neut % (Auto) 73.3 (43.0-75.0) % Lymph % (Auto) 21.2 (20.5-60.0) % Russell % (Auto) 4.2 (1.7-12.0) % Eos % (Auto) 0.3 L (0.9-7.0) % Baso % (Auto) 0.7 (0.2-2.0) % Neut # (Auto) 5.2 (1.4-6.5) 10^3/uL Lymph # (Auto) 1.5 (1.2-3.8) 10^3/uL Russell # (Auto) 0.3 (0.3-0.8) 10^3/uL Eos # (Auto) 0.0 (0.0-0.7) 10^3/uL Baso # (Auto) 0.1 (0.0-0.1) 10^3/uL Abs Immat Gran (auto) 0.02 (0.00-0.03) 10^3/uL Imm/Tot Granulo (auto) 0.3 (0.0-0.5) % Sodium 143 (136-145) mmol/L Potassium 3.9 (3.5-5.1) mmol/L Chloride 104 (98-107) mmol/L Carbon Dioxide 24.0 (21.0-32.0) mmol/L Anion Gap 18.9 BUN 12.0 (6.4-19.3) mg/dL Creatinine 0.98 (0.70-1.30) mg/dL Est GFR ( Amer) >60 (>=60 mL/min/1.73m^2) Est GFR (Non-Af Amer) >60 (>=60 mL/min/1.73m^2) BUN/Creatinine Ratio 12.2 Glucose 105 (74-106) mg/dL Calcium 9.8 (8.5-10.1) mg/dL Total Bilirubin 0.8 (0.2-1.0) mg/dL Direct Bilirubin 0.2 (0.0-0.2) mg/dL AST 19 (15-37) U/L ALT 23 (16-63) U/L Alkaline Phosphatase 74 (46-116) U/L Total Protein 8.5 H (6.4-8.2) g/dL Albumin 5.1 H (3.4-5.0) g/dL Globulin 3.4 g/dL Albumin/Globulin Ratio 1.5 Amylase 71 (25-115) U/L Lipase 20.0 (16.0-77.0) U/L Urine Color Yellow (YELLOW) Urine Clarity Clear (CLEAR) Urine pH 8.0 (5.0-9.0) Ur Specific [place]ley 1.015 (1.005-1.025) Urine Protein Trace (NEG/TRACE) mg/dL Urine Glucose (UA) Negative (NEGATIVE) mg/dL Urine Ketones Negative (NEGATIVE) mg/dL Urine Occult Blood Negative (NEGATIVE) Urine Nitrite Negative (NEGATIVE) Urine Bilirubin Negative (NEGATIVE) Urine Urobilinogen 1.0 (0.2-1.0) EU/dL Ur Leukocyte Esterase Negative (NEGATIVE) Urine RBC 0-2 (0-2) #/HPF Urine WBC None seen (NONE SEEN) #/HPF Ur Squamous Epith Cells None seen (NONE/RARE) #/LPF Urine Crystals None seen (None Seen) #/HPF Urine Bacteria Trace A (NONE SEEN) #/HPF Urine Casts None seen (NONE SEEN) #/LPF Urine Mucus Moderate A (NONE SEEN) Ur Culture Indicated? No Urine Opiates Screen Negative (NEGATIVE) Ur Buprenorphine Scrn Negative (NEGATIVE) Ur Oxycodone Screen Negative (NEGATIVE) Urine Methadone Screen Negative (NEGATIVE) Ur Barbiturates Screen Negative (NEGATIVE) U Tricyclic Antidepress Negative (NEGATIVE) Ur Phencyclidine Scrn Negative (NEGATIVE) Ur Amphetamines Screen Negative (NEGATIVE) U Methamphetamines Scrn Negative (NEGATIVE) U Benzodiazepines Scrn Negative (NEGATIVE) Urine Cocaine Screen Negative (NEGATIVE) U Cannabinoids Screen Positive A (NEGATIVE) Discharge Plan Discharge Chief Complaint: Nausea/Vomiting/Diarrhea Clinical Impression: Cannabinoid hyperemesis syndrome Patient Disposition: Home, Self-Care Time of Disposition Decision: 14:39 Condition: Good Mode of Transportation: Private Vehicle Prescriptions / Home Meds: New promethazine 25 mg tablet 25 mg PO Q6H PRN (Reason: nausea and vomiting) Qty: 20 0RF No Action ondansetron 4 mg tablet,disintegrating 4 mg PO Q8H PRN (Reason: nausea and vomiting) 3 Days Qty: 10 0RF promethazine 12.5 mg tablet 12.5 mg PO TID PRN (Reason: nausea and vomiting) Rx Instructions: 3 doses during day; last dose no later than 4 hr before bedtime cetirizine 10 mg tablet 10 mg PO DAILY dextroamphetamine-amphetamine 30 mg capsule,extended release 24hr 30 mg PO QAM Print Language: Maldivian Instructions: Acute Nausea and Vomiting (ED), Cannabis Use Disorder (ED) Referrals: KIRSTIE KOENIG [Primary Care Provider, Pediatrics] - 1 week
[2024-11-09 12:49] LABS: Hematocrit 45.3 % (42.0-54.0); Hemoglobin 16.1 g/dL (14.0-18.0); Immature Granulocytes Abs Auto 0.02 10^3/uL (0.00-0.03); Immature Granulocytes Pct Auto 0.3 % (0.0-0.5); Lymphocytes Absolute Auto 1.5 10^3/uL (1.2-3.8); Mean Corpuscular HGB Conc 35.5 g/dL (29.9-35.2); Mean Corpuscular Hemoglobin 30.6 pg (25.9-34.0); Mean Corpuscular Volume 86.1 fL (80.0-94.0); Platelet Count 292 10^3/uL (150-450); Red Blood Count 5.26 10^6/uL (4.70-6.10); White Blood Count 7.1 10^3/uL (4.0-11.0)
[2024-11-09 12:50] LABS: Glucose Urine UA NEGATIVE (NEGATIVE)
[2024-11-09] MEDS: 0.9 % SODIUM CHLORIDE 1,000 ML 1000 ML IV (12:50)
[2024-11-09 12:57] LABS: Anion Gap 18.9; Blood Urea Nitrogen 12.0 mg/dL (6.4-19.3); Calcium 9.8 mg/dL (8.5-10.1); Carbon Dioxide 24.0 mmol/L (21.0-32.0); Chloride 104 mmol/L (98-107); Estimated GFR (African America >60 (>=60 mL/min/1.73m^2); Estimated GFR (Non-African Ame >60 (>=60 mL/min/1.73m^2); Glucose 105 mg/dL (74-106); Potassium 3.9 mmol/L (3.5-5.1); Sodium 143 mmol/L (136-145)
[2024-11-09 12:58] LABS: Cannabinoid Screen Urine POSITIVE (NEGATIVE); Methamphetamines Screen Urine NEGATIVE (NEGATIVE); Tricyclic Antidepressant Urine NEGATIVE (NEGATIVE)
[2024-11-09 12:58] LABS: Cast Seen? NONE SEEN #/LPF (NONE SEEN); Crystals Seen? None Seen #/HPF (None Seen); Urine Culture Indicated NO
[2024-11-09] MEDS: PROMETHAZINE HCL 12.5 MG in 0.9 % SODIUM CHLORIDE 50 ML 202 MG IV (13:40)
[2024-11-09] MEDS: KETOROLAC TROMETHAMINE 30 MG/ML VIAL IVP (13:53)
[2024-11-09 14:11] LABS: Alanine Aminotransferase 23 U/L (16-63); Alkaline Phosphatase 74 U/L (46-116); Aspartate Amino Transferase 19 U/L (15-37); Total Protein 8.5 g/dL (6.4-8.2)
[2024-11-09 14:12] LABS: Albumin Globulin Ratio 1.5; Albumin Level 5.1 g/dL (3.4-5.0); Amylase 71 U/L (25-115); Globulin 3.4 g/dL; Lipase 20.0 U/L (16.0-77.0)
== END 2024-11-09 14:49 | disposition home or self-care (01) ==
PROVIDERS: Emergency Provider Emergency Medicine; PCP Pediatrics
DX: R11.10 Vomiting, unspecified (principal); F12.90 Cannabis use, unspecified, uncomplicated
CPT/HCPCS: 36415; 80048; 80076; 80307; 81001; 82150; 83690; 85025; 96361; 96374; 96375; 99284; J1885; J2405; J2550